=== PATIENT | female | born 1955 | race Caucasian/White ===

== ENCOUNTER 2025-01-02 11:11 | Outpatient (CLI) | payer MEDICARE, SELFPAY ==
--- OUTSIDE RECORDS SUMMARY | 2025-01-02 11:15 | XMS_ITS | Encounter Summary ---
Author Organization [facility] Address [address] [place] [address] Phone Care Team Providers Care Manager Of Construction Name Role Phone Amauri Raza MD Unavailable [phone] Trip Higginbotham MD Unavailable [phone] Ofelia Bundy PAC Unavailable Sabas Gold MD Unavailable [phone] Andre Celis MD Unavailable Emilia Horner MD Primary Care Provider Gabriela Krishnamurthy MD Unavailable [phone] Marcial Ceja MD Unavailable Reason for Visit * Reason Comments Medication Refill Encounter Details Date Type Department Care Team (Late st Contact Info) Description 10/06/2021 Refill [facility] - Family Medicine - Normal [address] [facility] [address] [place] [address] Emilia Horner MD [address] [facility] [address] [place] [address] Medication Refill Social History Tobacco Use Types Packs/Day Years Used Date Smoking Tobacco: Never Smokeless Tobacco: Never Alcohol Use Standard Drinks/Week Comments Yes 0 (1 standard drink = 0.6 oz pur e alcohol) Occasional, 1 glass per month PHQ-2 Answer Date Recorded Total Score - Questions 1-9 1 03/16 Sexually Active Control Partners Comments Not Currently Male Comments No Sex and Gender Information Value Date Recorded Sex Assigned at Not on file Legal Sex Female 3:00 AM THREAD INSPECTOR Gender Identity Not on file Sexual Orientation Not on file COVID-19 Exposure Response Date Recorded In the last month, have you been in contact with someone who was confirmed or suspected to have Coronavirus / COVID-19? No / Unsure 09/20/2021 9:33 AM THREAD INSPECTOR documented as of this encounter Miscellaneous Notes * Telephone Encounter - Latesha Suresh APRN, CNP - 10/08/2021 10:40 AM CST (I am covering for Dr. Díaz who is away from the office today.) Medication refilled. AD INSPECTOR * Telephone Encounter - Yamila Elliott RN - 10/08/2021 10:06 AM THREAD INSPECTOR Medication failed the protocol, cannot be delegated, provider to review and approve the medication order if appropriate. STEF: 09/20/2021 (Preop); 04/13/2021 (Med Management) - Irritable bowel syndrome with diarrhea - amitriptyline (ELAVIL) 50 MG Tablet; Take 1 Tablet by mouth nightly. NOV: 10/13/2021 - Annual Last Filled: Amitriptyline 50 mg - 04/13/2021 - #90/1 Requested Prescriptions Pending Prescriptions Disp Refills amitriptyline (ELAVIL) 50 MG Tablet [Pharmacy Med Name: AMITRIPTYLINE 50MG TABLETS] 90 Tablet 1 Sig: TAKE 1 TABLET BY MOUTH EVERY NIGHT Not Delegated - Tricyclic Agents Protocol Failed - 10/06/2021 10:18 AM Failed - This refill cannot be delegated Passed - Visit with relevant provider in past 12 months or upcoming 90 days Recent Visits Date Type Provider Dept 09/20/21 Office Visit Fred Johnson APRN, SUPERVISOR CONCRETE STONE FINISHING [facility] [place] 04/13/21 Office Visit Emilia D[facility] [place] [facility] [place] 10/30/20 Office Visit Emilia Díaz [facility] [place] Showing recent visits within past 365 days and meeting all other requirements Future Appointments Date Type Provider Dept 10/13/21 Appointment Emilia Díaz MD [facility] [place] Showing future appointments within next 90 days and meeting all other requirements AD INSPECTOR documented in this encounter Plan of Treatment Not on file documented as of this encounter Visit Diagnoses Diagnosis Fibromyalgia Mylagia and myositis, unspecified Irritable bowel syndrome with diarrhea Irritable bowel syndrome documented in this encounter Additional Health Concerns Infection Onset Date Last Indicated Resolved Time COVID - 19 01/07/2022 01/07/2022 01/27/2022 12:1 6 AM CDT COVID - 19 Confirmed 02/28/2022 02/28/2022 022 12:16 AM CDT COVID - 19 03/27/2024 03/27/2024 03/27/2024 12:4 2 PM CDT Assessment Noted Time PHQ-9 Depression Total Score: 1 04/13/20 10:00 AM CDT documented as of this encounter Care Teams Manager Of Construction Relationship Specialty Start Date End Date Emilia Horner MD [address] [place] [address] PCP - General Family Medicine 01/02/19 Amauri Raza MD Consulting Physician Rheumatology 08/05/14 Trip Higginbotham MD [address] [place] [address] Consulting Physician Allergy & Immunology 10/06/14 Ofelia Bundy PAC [address] [place] [address] Physician Body Wirer Physician Body Wirer 10/06/14 Sabas Gold MD [address] [facility] [address] Consulting Physician Gastroenterology 04/01/15 Andre Celis MD [address] [place] [address] Consulting Physician Urology 05/21/18 Gabriela Krishnamurthy MD [address] [facility] [place], [place] [address] Powerhouse Mechanic Apprentice Interventional Cardiology 10/14/24 Marcial Ceja MD [address] [facility] [place], [place] [address] Consulting Physician Cardiovascular Disease - Cardiology 10/14/24 documented as of this encounter
--- OUTSIDE RECORDS SUMMARY | 2025-01-02 11:15 | XMS_ITS ---
Author Organization [facility] Address [address] [place], [place] [address] Care Team Providers Care Time Study Statistician Name Role Phone Bre Chris Emilia Horner Primary Care Provider Unavailable Andre Celis [phone] REASON FOR VISIT RX REFILL Medications Medication SIG (Take, Route, Fr equency, Duration) Notes Start Date End Date Status Myrbetriq 50 MG 1 tablet Orally Once a day for 90 days Active Encounters Encounter Location Date Provider Diagnosis [facility] [address] [place] [place] [place], [place] [address] 10/21/2024 Andre Celis Urgency of urination R39.15 Assessments Encounter Date Diagnosis (ICD Code) Assessment Notes Treatment Notes Treatment Clinical Notes Section Notes 10/21/2024 Urgency of urination (ICD-10 - R39.15) Plan Of Treatment Medication Medication Name Sig Start Date Stop Date Notes Myrbetriq 50 MG 1 tablet Orally Once a day for 90 days Progress Notes * Rebekah MERCADO AprilDOB:[birth year] (69 yo F)Acc No.[id number]:10/21/2024 Patient: Rebekah WOO :1955 A ge:69 Y S ex:Female Address:[address] [facility], [place], [address] * Refills Refill Myrbetriq Tablet Extended Release 24 Hour, 50 MG, Orally, 90, 1 tablet, Once a day, 90 days, Refills=0 * true * Date: Generated for Kailyn em/Miguelangel/Rivka on: 0 01/02/2025 11:15 AM CDT
--- OUTSIDE RECORDS SUMMARY | 2025-01-02 11:15 | XMS_ITS | Encounter Summary ---
Author Organization [facility] Address [address] [place] [address] Phone Care Team Providers Care Director Packaging Name Role Phone Amauri Raza MD Unavailable [phone] Trip Higginbotham MD Unavailable [phone] Ofelia Bundy PAC Unavailable Sabas Gold MD Unavailable [phone] Andre Celis MD Unavailable Emilia Horner MD Primary Care Provider Gabriela Krishnamurthy MD Unavailable Marcial Ceja MD Unavailable Reason for Visit * Reason Comments Medication Refill Encounter Details Date Type Department Care Team (Late st Contact Info) Description 08/06/2020 Refill [facility] - Family Medicine - [place] [address] [facility] [address] [place] [address] Latesha Suresh APRN, SALES AND MARKETING ADMINISTRATOR [address] [facility] [address] [place] [address] Medication Refill Social History Tobacco Use Types Packs/Day Years Used Date Smoking Tobacco: Never Smokeless Tobacco: Never Alcohol Use Standard Drinks/Week Comments Yes 0 (1 standard drink = 0.6 oz pur e alcohol) Occasional, 1 glass per month PHQ-2 Answer Date Recorded Total Score - Questions 1-9 1 11/2019 Sexually Active Control Partners Comments Never Comments No Sex and Gender Information Value Date Recorded Sex Assigned at Not on file Legal Sex Female 3:00 AM WEIGHTER Gender Identity Not on file Sexual Orientation Not on file COVID-19 Exposure Response Date Recorded In the last month, have you been in contact with someone who was confirmed or suspected to have Coronavirus / COVID-19? No / Unsure 07/17/2020 8:11 AM WEIGHTER documented as of this encounter Miscellaneous Notes * Telephone Encounter - Latesha Suresh APN, CNP - 08/11/2020 11:04 AM CST Medication refilled. HTER * Telephone Encounter - Yamila Hooper - 08/10/2020 3:29 PM CST Per nursing clinical judgement, provider to review and approve the medication(s) order(s) if appropriate. Routing due to pop up with diclofenac sodium Requested Prescriptions Pending Prescriptions Disp Refills celecoxib (CeleBREX) 200 MG Capsule [Pharmacy Med Name: CELECOXIB 200MG CAPSULES] 90 Cap 0 Sig: TAKE 1 CAPSULE BY MOUTH DAILY Analgesics: COX2 Inhibitors Passed - 08/06/2020 12:59 PM Passed - Valid encounter within last 6 months Past Office Visits Recent Outpatient Visits 3 weeks ago Encounter for general adult medical examination without abnormal findings [facility] - [facility] Medicine - Emilia Kay MD 5 months ago Injury of right middle finger, subsequent encounter [facility] Family Medicine - Normal Latesha Suresh APN, CNP 7 months ago Preop examination [facility] Family [facility] - Emilia Kay MD 7 months ago Paronychia of finger, right [facility] Family Medicine - Noemi Brady APN, SALES AND MARKETING ADMINISTRATOR 10 months ago Other iron deficiency anemia [facility] Family Medicine - Emilia Kay MD Upcoming Appointments EXCAVATOR OPERATOR - Recent and Past Visits Recent Visits Date Type Provider Dept 07/17/20 Office Visit Emilia Díaz MD [facility] [place] 02/13/20 Office Visit Latesha Suresh APN, SALES AND MARKETING ADMINISTRATOR [facility] [place] 01/13/20 Office Visit Emilia Díaz MD [facility] [place] 12/27/19 Office Visit Noemi Forbes APN, SALES AND MARKETING ADMINISTRATOR [facility] [place] 09/20/19 Office Visit Emilia Díaz MD [facility] [place] 08/28/19 Office Visit Leigh Ann Gaona APN, SALES AND MARKETING ADMINISTRATOR [facility] [place] 05/24/19 Office Visit Emilia Díaz MD [facility] [place] Showing recent visits within past 460 days with a meds authorizing provider and meeting all other requirements Future Appointments No visits were found meeting these conditions. Showing future appointments within next 90 days with a meds authorizing provider and meeting all other requirements HTER documented in this encounter Plan of Treatment Not on file documented as of this encounter Visit Diagnoses Not on filedocumented in this encounter Additional Health Concerns Infection Onset Date Last Indicated Resolved Time COVID - 19 08/18/2020 08/18/2020 09/07/2020 12:1 8 AM WEIGHTER COVID - 19 Comment:COVID swab is negative, removed COVID flag per ED MD order 10/02/2020 10/02/2020 10/02/2020 5:[address] COVID - 19 01/07/2022 01/07/2022 01/27/2022 12:1 6 AM CDT COVID - 19 Confirmed 02/28/2022 02/28/2022 022 12:16 AM CDT COVID - 19 03/27/2024 03/27/2024 03/27/2024 12:4 2 PM CDT Assessment Noted Time PHQ-9 Depression Total Score: 1 07/17/20 20 9:00 AM WEIGHTER documented as of this encounter Care Teams Director Packaging Relationship Specialty Start Date End Date Emilia Horner MD [address] [address] PCP - General Family Medicine 01/02/19 Amauri Raza MD Consulting Physician Rheumatology 08/05/14 Trip Higginbotham MD [address] [place] [address] Consulting Physician Allergy & Immunology 10/06/14 Ofelia Bundy PAC [address] [place] [address] Physician Senior Db2 Systems Programmer Physician Senior Db2 Systems Programmer 10/06/14 Sabas Gold MD [address] [place] [address] Consulting Physician Gastroenterology 04/01/15 Andre eClis MD [address] [place] [address] Consulting Physician Urology 05/21/18 Gabriela Krishnamurthy MD [address] [place] [address] Laminator Preforms Interventional Cardiology 10/14/24 Marcial Ceja MD [address] [place] [address] Consulting Physician Cardiovascular Disease - Cardiology 10/14/24 documented as of this encounter
--- OUTSIDE RECORDS SUMMARY | 2025-01-02 11:15 | XMS_ITS | Encounter Summary ---
Author Organization [facility] Address [address] [place] [address] Phone Care Team Providers Care End User Consultant Name Role Phone Amauri Raza MD Unavailable Trip Higginbotham MD Unavailable [phone] Ofelia Bundy PAC Unavailable Sabas Gold MD Unavailable [phone] Andre Celis MD Unavailable Emilia Horner MD Primary Care Provider Gabriela Krishnamurthy MD Unavailable Marcial Ceja MD Unavailable Reason for Visit * Reason Comments Medication Refill Encounter Details Date Type Department Care Team (Late st Contact Info) Description 10/05/2021 Refill [facility] - Gastroenterology - [place] [address] [place] [address] Sabas Gold MD [address] [place] [address] Medication Refill Social History Tobacco Use Types [...] on file Legal Sex Female 3:00 AM BIOFUELS PRODUCT DEVELOPMENT MANAGER Gender Identity Not on file Sexual Orientation Not on file COVID-19 Exposure Response Date Recorded In the last month, have you been in contact with someone who was confirmed or suspected to have Coronavirus / COVID-19? No / Unsure 09/20/2021 9:33 AM BIOFUELS PRODUCT DEVELOPMENT MANAGER documented as of this encounter Plan of Treatment Not on [...] Time PHQ-9 Depression Total Score: 1 04/13/20 21 10:00 AM CDT documented as of this encounter Care Teams End User Consultant Relationship Specialty Start Date End Date Emilia Horner MD [address] [place] [address] PCP - General Family Medicine 01/02/19 Amauri Raza MD Consulting Physician Rheumatology 08/05/14 Trip Higginbotham MD [address] [place] [address] Consulting Physician Allergy & Immunology 10/06/14 Ofelia Budny PAC [address] [place] [address] Physician Vegetable Grader Physician Vegetable Grader 10/06/14 Sabas Gold MD [address] [place] [address] Consulting Physician Gastroenterology 04/01/15 Andre Celis MD [address] [place] [address] Consulting Physician Urology 05/21/18 Gabriela Krishnamurthy MD [address] [facility] [address] [place], [place] [address] Director Post Interventional Cardiology 10/14/24 Marcial Ceja MD [address] [facility] [address] [place], [place] [address] Consulting Physician Cardiovascular Disease - Cardiology 10/14/24 documented as of this encounter
--- OUTSIDE RECORDS SUMMARY | 2025-01-02 11:15 | XMS_ITS | Encounter Summary ---
Author Organization [facility] Address [address] [place] [address] Phone Care Team Providers Care Microbiology Coordinator Name Role Phone Amauri Raza MD Unavailable [phone] Tirp Higginbotham MD Unavailable [phone] Ofelia Bundy PAC Unavailable [phone] Sabas Gold MD Unavailable Andre Celis MD Unavailable Emilia Horner MD Primary Care Provider Gabriela Krishnamurthy MD Unavailable Marcial Ceja MD Unavailable Reason for Visit * Reason Comments Medication Refill Encounter Details Date Type Department Care Team (Late st Contact Info) Description 10/02/2021 Refill [facility] - Gastroenterology - [place] [address] [place] [phone] Tigre Urrutia PAC [address] [place] [address] Medication Refill Social History Tobacco Use Types [...] on file Legal Sex Female 3:00 AM BOGGER OPERATOR Gender Identity Not on file Sexual Orientation Not on file COVID-19 Exposure Response Date Recorded In the last month, have you been in contact with someone who was confirmed or suspected to have Coronavirus / COVID-19? No / Unsure 09/20/2021 9:33 AM BOGGER OPERATOR documented as of this encounter Miscellaneous Notes * Telephone Encounter - Miguelina Cornejo LPN - 10/04/2021 8:42 AM CST Wrong provider ER OPERATOR documented in this encounter Plan of Treatment [...] documented as of this encounter Care Teams Microbiology Coordinator Relationship Specialty Start Date End Date Emilia Horner MD [address] [address] PCP - General Family Medicine 01/02/19 Amauri Raza MD Consulting Physician Rheumatology 08/05/14 Trip Higginbotham MD [address] [place] [address] Consulting Physician Allergy & Immunology 10/06/14 Ofelia Bundy PAC [address] [place] [address] Physician Alumni Coordinator Physician Alumni Coordinator 10/06/14 Sabas Gold MD [address] [place] [address] Consulting Physician Gastroenterology 04/01/15 Andre Celis MD [address] [facility] [place] [address] Consulting Physician Urology 05/21/18 Gabriela Krishnamurthy MD [address] [facility] [address] [facility] [place] [address] Inside Sales Territory Manager Interventional Cardiology 10/14/24 Marcial Ceja MD [address] [facility] [place] [address] Consulting Physician Cardiovascular Disease - Cardiology 10/14/24 documented as of this encounter
--- OUTSIDE RECORDS SUMMARY | 2025-01-02 11:16 | XMS_ITS | Patient Health Record ---
Author Organization [facility] Address [address] [place], [place] [address] Care Team Providers Care Occupational Health Rn Name Role Phone Emilia Hernandez Primary Care Provider Unavailable Andre Celis Unavailable [phone] Tianna Mckeon Unavailable Allergies Allergen (clinical drug ingredient) Drug/Non Drug Allergy documented on EMR Reaction Allergy Type Onset Date Status tetracycline Tetracycline HCl hives Drug Allergy Active Reason For Referral No Information Medications Medication SIG (Take, Route, Frequency, Duration) Notes Start Date End Date Status Flonase Allergy Relief 50 MCG/ACT 1 spray in each nostril Nasally Once a day Active Albuterol 90 MCG/ACT Inhalation Active Cholecalciferol 2000 UNIT Orally Active B Complex Vitamins Orally A ctive [place] 3-6-9 Complex Orally Active NexIUM 40 MG 1 capsule Orally Once a day Active Estrace 0.1 MG/GM 1 gram Vaginal QHS for the first 2 weeks, then 3 x weekly for 30 days Active B-12 1000 MCG 1 tablet under the tongue and allow to dissolve Sublingual Once a day Active Symbicort 80-4.5 MCG/ACT 2 puffs Inhalat ion Twice a day Active Myrbetriq 50 mg 1 tablet Orally Once a day for 30 Active Probiotic Orally Active Myrbetriq 50 MG TAKE 1 TABLET BY MOUTH EVERY DAY Orally Once a day for 90 days Patient needs to be seen before further refills Active Amitriptyline HCl 25 MG 1 tablet at bedt maxine Orally Once a day Active Myrbetriq 50 MG 1 tablet Orally Once a day for 90 days Active Vitamin E 100 UNIT 1 capsule Orally Once a day Active Social History Tobacco Use: Social History Observation Description Date Details (start date - stop date) Never Smoker NA - NA TOBACCO USE - Question Answer Notes Are you a: never Tobacco user Alcohol Screen Question Answer Notes Did you have a drink containing alcohol in the p ast year? No Points 0 Interpretation Negative Problems Problem Type SNOMED Code ICD Code Onset Dates Problem Status W/U Status Risk Notes Problem Frequency of micturition (097373202) Frequency of micturition (R35.0) Active confirmed Problem Urge incontinence of urine (07286895) Urge incontinence (N39.41) Active confirmed Problem Postmenopausal atrophic vaginitis (49808694) Postmenopausal atrophic vaginitis (N95.2) Active confirmed Problem Nocturia (952805925) Nocturia (R35.1) Active confirmed Problem Urgent desire to urinate (65726934) Urgency of urination (R39.15) Active confirmed Problem Female stress incontinence (57093853) Female stress incontinence (625.6) Inactive confirmed Problem Urge incontinence of urine (55367486) Urge incontinence (788.31) Inactive confirmed Problem Urinary frequency (031311082) Urinary frequency (788.41) Inactive confirmed Problem Nocturia (981108736) Nocturia (788.43) Inactive confirmed Problem Urgent desire to urinate (32049655) Urgency of urination (788.63) Inactive confirmed Encounters Encounter Location Date Provider Diagnosis [facility] [address] [place] [place], [place] [address] 10/21/2024 Andre Leak Urgency of urination R39.15 Assessments Encounter Date Diagnosis (ICD Code) Assessment Notes Treatment Notes Treatment Clinical Notes Section Notes 10/21/2024 Urgency of urination (ICD-10 - R39.15) Plan Of Treatment Pending Test Test Name Order Date Urinalysis with micro 10/24/2022 UTI Panel 10/24/2022 Insurance Providers Payer Name Payer Address Payer Phone Subscriber Number Group Number Insured Name Patient Relationship to Insured Coverage Start Date Coverage End Date [employer] [address] [place] [address] [id number] Rebekah Mercado Self - patient is the insured Medical (General) History Medical History History ICD Code hysterectomy tonsillectomy Arthritis asthma Esophageal reflux fibromyalgia Hiatal hernia hyperlipidemia meniscal tear low hemoglobin Surgical History Surgery Date(Month/Year) foot surgery tonsillectomy knee surgery carpal tunnel release inguinal hernia repair hysterectomy, abdominal knee arthroscopy iron infusion R knee replacement 2023
--- OUTSIDE RECORDS SUMMARY | 2025-01-02 11:16 | XMS_ITS | Encounter Summary ---
Author Organization [facility] Address [address] [place] [address] Phone Care Team Providers Care Brazing Machine Operator Automatic Name Role Phone Amauri Raza MD Unavailable Trip Higginbotham MD Unavailable [phone] Ofelia Bundy PAC Unavailable Sabas Gold MD Unavailable [phone] Andre Celis MD Unavailable Emilia Horner MD Primary Care Provider Gabriela Krishnamurthy MD Unavailable Marcial Ceja MD Unavailable Reason for Visit * Reason Comments Medication Refill Encounter Details Date Type Department Care Team (Late st Contact Info) Description 05/07/2020 Refill [facility] - Family Medicine - Normal [address] [facility] [address] [place], [place] [address] Emilia Horner MD [address] [facility] [address] [place] [address] Medication Refill Social History Tobacco Use Types Packs/Day Years Used Date Smoking Tobacco: Never Smokeless Tobacco: Never Alcohol Use Standard Drinks/Week Comments Yes 0 (1 standard drink = 0.6 oz pur e alcohol) Occasional, 1 glass per month PHQ-2 Answer Date Recorded PHQ-2 Score 0 04/18/2019 Sexually Active Control Partners Comments Never Comments No Sex and Gender Information Value Date Recorded Sex Assigned at Not on file Legal Sex Female 3:00 AM OBSTETRIC ASSISTANT Gender Identity Not on file Sexual Orientation Not on file COVID-19 Exposure Response Date Recorded In the last month, have you been in contact with someone who was confirmed or suspected to have Coronavirus / COVID-19? No / Unsure 05/05/2020 10:53 AM CDT documented as of this encounter Miscellaneous Notes * Telephone Encounter - Latesha Suresh APN, CNP - 05/08/2020 6:33 PM CDT Medication refilled. * Telephone Encounter - Jenny Mckeon RN - 05/08/2020 12:01 PM CDT Medication failed the protocol, provider to review and approve the medication order. Requested Prescriptions Pending Prescriptions Disp Refills celecoxib (CeleBREX) 200 MG Capsule [Pharmacy Med Name: CELECOXIB 200MG CAPSULES] 90 Cap Sig: TAKE 1 CAPSULE BY MOUTH DAILY Analgesics: COX2 Inhibitors Passed - 05/07/2020 12:39 PM Passed - Valid encounter within last 6 months Past Office Visits Recent Outpatient Visits 2 months ago Injury of right middle finger, subsequent encounter [facility] - Normal Latesha Suresh APN, SAMANTHA 3 months ago Preop examination [facility] - Normal Emilia Díaz MD 4 months ago Paronychia of finger, right [facility] - Normal Noemi Forbes APN, HABILITATION ASSISTANT 7 months ago Other iron deficiency anemia [facility] - Normal Emilia Díaz MD 8 months ago Paronychia of finger, right [facility] - Normal Leigh Ann Gaona APN, HABILITATION ASSISTANT Upcoming Appointments FILTER CLOTH MAKER - Recent and Past Visits Recent Visits Date Type Provider Dept 02/13/20 Office Visit Latesha Suresh APN, HABILITATION ASSISTANT [facility] [place] 01/13/20 Office Visit Emilia Díaz MD [facility] [place] 12/27/19 Office Visit Noemi Forbes APN, HABILITATION ASSISTANT [facility] [place] 09/20/19 Office Visit Emilia Díaz MD [facility] [place] 08/28/19 Office Visit Jimenez Leigh Ann MACKENZIE Travis, HABILITATION ASSISTANT [facility] [place] 05/24/19 Office Visit Emilia Díaz MD [facility] [place] Showing recent visits within past 460 days with a meds authorizing provider and meeting all other requirements Future Appointments No visits were found meeting these conditions. Showing future appointments within next 90 days with a meds authorizing provider and meeting all other requirements documented in this encounter Plan of Treatment Not on file documented as of this encounter Visit Diagnoses Not on filedocumented in this encounter Additional Health Concerns Infection Onset Date Last Indicated Resolved Time COVID - 19 08/18/2020 08/18/2020 09/07/2020 12:1 8 AM OBSTETRIC ASSISTANT COVID - 19 Comment:COVID swab is negative, removed COVID flag per ED MD order 10/02/2020 10/02/2020 10/02/2020 5:[address] COVID - 19 01/07/2022 01/07/2022 01/27/2022 12:1 6 AM CDT COVID - 19 Confirmed 02/28/2022 02/28/2022 022 12:16 AM CDT COVID - 19 03/27/2024 03/27/2024 03/27/2024 12:4 2 PM CDT Assessment Noted Time PHQ-9 Depression Total Score: 0 05/24/20 1:00 PM CDT documented as of this encounter Care Teams Brazing Machine Operator Automatic Relationship Specialty Start Date End Date Emilia Horner MD [address] [address] [place] [address] PCP - General Family Medicine 01/02/19 Amauri Raza MD Consulting Physician Rheumatology 08/05/14 Trip Higginbotham MD [address] [place] [address] Consulting Physician Allergy & Immunology 10/06/14 Ofelia Bundy PAC [address] [place] [address] Physician Contact Lens Cutter Physician Contact Lens Cutter 10/06/14 Sabas Gold MD [address] [place] [phone] Consulting Physician Gastroenterology 04/01/15 Andre Celis MD [address] [place] [address] Consulting Physician Urology 05/21/18 Gabriela Krishnamurthy MD [address] [facility] [place], [place] [address] Customs Collector Interventional Cardiology 10/14/24 Marcial Ceja MD [address] [facility] [place], [place] [address] Consulting Physician Cardiovascular Disease - Cardiology 10/14/24 documented as of this encounter
--- OUTSIDE RECORDS SUMMARY | 2025-01-02 11:16 | XMS_ITS | Encounter Summary ---
Author Organization [facility] Address [address] [place] [address] Phone Care Team Providers Care Maitre D' Name Role Phone Amauri Raza MD Unavailable Trip Higginbotham MD Unavailable [phone] Ofelia Bundy PAC Unavailable [phone] Sabas Gold MD Unavailable [phone] Andre Celis MD Unavailable Emilia Horner MD Primary Care Provider [phone] Gabriela Krishnamurthy MD Unavailable Marcial Ceja MD Unavailable Reason for Visit * Reason Comments Medication Refill Encounter Details Date Type Department Care Team (Late st Contact Info) Description 01/20/2024 Refill [facility] - Family Medicine - Normal [address] [facility] [address] [place] [address] Emilia Horner MD [address] [facility] [address] [place] [address] Medication Refill Social History Tobacco Use Types Packs/Day Years Used Date Smoking Tobacco: Never Smokeless Tobacco: Never Alcohol Use Standard Drinks/Week Comments Yes 0 (1 standard drink = 0.6 oz pur e alcohol) Occasional, 1 glass per month [facility] Utilities Answer Date Recorded In the past 12 months has e electric, gas, oil, or water company threatened to shut off services in your home? No 10/08/2023 Social Connection and Isolat ion Panel [NHANES] Answer Date Recorded In a typical week, how many times do you talk on the phone with family, friends, or neighbors? More than three times a week 10/08/2023 How often do you get togethe r with friends or relatives? Once a week 10/08/2023 How often do you attend chur ch or sabianism services? More than 4 times per year 10/08/2023 Do you belong to any clubs o r organizations such as jain groups, unions, fraternal or athletic groups, or school groups? Yes 10/08/2023 How often do you attend meet ings of the clubs or organizations you belong to? More than 4 times per year 10/08/2023 Are you , , di vorced, , never , or living with a partner? 10/08/2023 AUDIT-C Answer Date Recorded Q1: How often do you have a drink containing alc ohol? Monthly or less 10/08/2023 Q2: How many drinks containi ng alcohol do you have on a typical day when you are drinking? 1 or 2 10/08/2023 Q3: How often do you have si x or more drinks on one occasion? Never 10/08/2023 Overall Financial Resource Strain (CARDIA) Answe r Date Recorded How hard is it for you to pa y for the very basics like food, housing, medical care, and heating? Not very hard 10/08/2023 PHQ-2 Answer Date Recorded Total Score - Questions 1-9 5 01/12 [facility] - Occupational Stress Questionnaire Answer Date Recorded Do you feel stress - tense, restless, nervous, or anxious, or unable to sleep at night because your mind is troubled all the time - these days? To some extent 10/08/2023 Exercise Vital Sign Answer Date Recorde d On average, how many days pe r week do you engage in moderate to strenuous exercise (like a brisk walk)? 0 days 10/08/2023 On average, how many minutes do you engage in exercise at this level? 0 min 10/08/2023 Hunger Vital Sign Answer Date Recorded Within the past 12 months, y ou worried that your food would run out before you got the money to buy more. Never true 10/08/19 24 Within the past 12 months, t he food you bought just didn't last and you didn't have money to get more. Never true 10/08/2023 PRAPARE - Transportation Answer Date Re corded In the past 12 months, has l ack of transportation kept you from medical appointments or from getting medications? No 09/15 In the past 12 months, has l ack of transportation kept you from meetings, work, or from getting things needed for daily living? No 10/08/2023 Housing Stability Vital Sign Answer Marky e Recorded In the last 12 months, was t here a time when you were not able to pay the mortgage or rent on time? No 10/08/2023 In the last 12 months, how many places have you lived? 1 10/08/2023 In the last 12 months, was t here a time when you did not have a steady place to sleep or slept in a jail (including now)? No 10/08/2023 Education Answer Date Recorded What is the highest level of school you have completed or the highest degree you have received? Master's degree (e.g., MA, MS, Carolyn, MEd, BACK HOE OPERATOR, MALA) 01/25/2023 Sexually Active Control Partners Comments Not Currently Male Comments No Sex and Gender Information Value Date Recorded Sex Assigned at Not on file Legal Sex Female 3:00 AM PRIZE FIGHTER Gender Identity Not on file Sexual Orientation Not on file documented as of this encounter Miscellaneous Notes * Telephone Encounter - Zora Patel RN - 01/22/2024 8:52 AM CDT Fenofibrate refilled and signed per [facility] chronic medication standing order for Pediatric and Adult Patients. Gabapentin failed the protocol. Order pended All Patient Appointments Provider Department Dept Phone 02/08/2024 1:00 PM Emilia Horner [facility] - Family Medicine - Normal [phone] Requested Prescriptions Pending Prescriptions Disp Refills fenofibrate 160 MG Tablet [Pharmacy Med Name: FENOFIBRATE 160MG TABLETS] 90 Tablet 0 Sig: TAKE 1 TABLET BY MOUTH DAILY Fibrates Protocol Passed - 01/20/2024 7:51 AM Passed - Visit with relevant provider in past 12 months or upcoming 90 days Recent Visits Date Type Provider Dept 10/10/23 Office Visit Emilia Horner MD [facility] [place] 08/28/23 Office Visit Noemi Forbes APRN, HYDROSTATIC TUBING TESTER [facility] [place] 01/25/23 Office Visit Emilia Horner MD [facility] [place] Showing recent visits within past 365 days and meeting all other requirements Future Appointments Date Type Provider Dept 02/08/24 Appointment Emilia Horner MD [facility] [place] Showing future appointments within next 90 days and meeting all other requirements Passed - Lipid panel in past 12 months LDL Date Value Ref Range Status 02/07/2023 54 <130 mg/dL Final HDL CHOLESTEROL Date Value Ref Range Status 02/07/2023 46 >40 mg/dL Final CHOLESTEROL Date Value Ref Range Status 02/07/2023 157 <200 mg/dL Final TRIGLYCERIDES Date Value Ref Range Status 02/07/2023 283 (H) <150 mg/dL Final VLDL Date Value Ref Range Status 02/07/2023 57 (H) 10 - 50 mg/dL Final CHOL/HDL RATIO Date Value Ref Range Status 02/07/2023 3.4 0.0 - 4.4 Final NON-HDL CHOLESTEROL Date Value Ref Range Status 02/07/2023 111 <130 mg/dL Final gabapentin (NEURONTIN) 300 MG Capsule [Pharmacy Med Name: GABAPENTIN 300MG CAPSULES] 180 Capsule 0 Sig: TAKE 1 CAPSULE BY MOUTH TWICE DAILY Not Delegated - Anticonvulsants Excluding Benzodiazepines Protocol Failed - 01/20/2024 7:51 AM Failed - This refill cannot be delegated Passed - Visit with relevant provider in past 12 months or upcoming 90 days Recent Visits Date Type Provider Dept 10/10/23 Office Visit Emilia Horner MD [facility] [place] 08/28/23 Office Visit Noemi Forbes APRN, HYDROSTATIC TUBING TESTER [facility] [place] 01/25/23 Office Visit Emilia Horner MD [facility] [place] Showing recent visits within past 365 days and meeting all other requirements Future Appointments Date Type Provider Dept 02/08/24 Appointment Emilia Horner MD [facility] [place] Showing future appointments within next 90 days and meeting all other requirements documented in this encounter Plan of Treatment Not on file documented as of this encounter Visit Diagnoses Diagnosis Mixed hyperlipidemia Fibromyalgia Mylagia and myositis, unspecified documented in this encounter Additional Health Concerns Infection Onset Date Last Indicated Resolved Time COVID - 19 03/27/2024 03/27/2024 03/27/2024 12:4 2 PM CDT Assessment Noted Time PHQ-9 Depression Total Score: 5 01/26/20 10:00 AM CDT documented as of this encounter Care Teams Maitre D' Relationship Specialty Start Date End Date Emilia Horner MD [address] [address] PCP - General Family Medicine 01/02/19 Amauri Raza MD Consulting Physician Rheumatology 08/05/14 Trip Higginbotham MD [address] [place] [address] Consulting Physician Allergy & Immunology 10/06/14 Ofelia Bundy PAC [address] [facility] [place] [place] [address] Physician Windows Desktop Engineer Physician Windows Desktop Engineer 10/06/14 Sabas Gold MD [address] [place] [address] Consulting Physician Gastroenterology 04/01/15 Andre Celis MD [address] [place] [address] Consulting Physician Urology 05/21/18 Gabriela Krishnamurthy MD [address] [facility] [place] [address] Nut Sheller Machine Operator Interventional Cardiology 10/14/24 Marcial Ceja MD [address] [facility] [place], [place] [id number] Consulting Physician Cardiovascular Disease - Cardiology 10/14/24 documented as of this encounter
--- OUTSIDE RECORDS SUMMARY | 2025-01-02 11:16 | XMS_ITS | Encounter Summary ---
Author Organization [facility] Address [address] [place] [address] Phone Care Team Providers Care Supervisor Composing Room Name Role Phone Amauri Raza MD Unavailable Trip Higginbotham MD Unavailable [phone] Ofelia Bundy PAC Unavailable Sabas Gold MD Unavailable [phone] Andre Celis MD Unavailable Emilia Horner MD Primary Care Provider Gabriela Krishnamurthy MD Unavailable Marcial Ceja MD Unavailable Reason for Visit * Reason Comments Medication Refill Encounter Details Date Type Department Care Team (Late st Contact Info) Description 01/08/2021 Refill [facility] - Family Medicine - Normal [address] [facility] [place] [address] [place] [address] Emilia Horner MD [address] [facility] [address] [address] [place] [address] Medication Refill Social History Tobacco Use Types Packs/Day Years Used Date Smoking Tobacco: Never Smokeless Tobacco: Never Alcohol Use Standard Drinks/Week Comments Yes 0 (1 standard drink = 0.6 oz pur e alcohol) Occasional, 1 glass per month PHQ-2 Answer Date Recorded Total Score - Questions 1-9 1 11/2019 Sexually Active Control Partners Comments Not Currently Male Comments No Sex and Gender Information Value Date Recorded Sex Assigned at Not on file Legal Sex Female 3:00 AM MAJOR ACCOUNT REPRESENTATIVE Gender Identity Not on file Sexual Orientation Not on file documented as of this encounter Miscellaneous Notes * Telephone Encounter - Emilia Díaz MD - 01/13/2021 11:13 AM CDT approved * Telephone Encounter - Filemon José - 01/13/2021 9:18 AM CDT Medication failed the protocol, provider to review and approve the medication order if appropriate. STEF - 10/30/20 Requested Prescriptions Pending Prescriptions Disp Refills amitriptyline (ELAVIL) 50 MG Tablet [Pharmacy Med Name: AMITRIPTYLINE 50MG TABLETS] 90 Tablet 0 Sig: TAKE 1 TABLET BY MOUTH EVERY NIGHT [facility] Not Delegated - Psychiatry: Antidepressants - Heterocyclics (TCAs) Failed - 01/13/2021 9:12 AM Failed - This refill cannot be delegated Passed - Valid encounter within last 12 months Past Office Visits Recent Outpatient Visits 2 months ago Inflammatory arthritis [facility] - Family Medicine - Normal Emilia Díaz MD 6 months ago Encounter for general adult medical examination without abnormal findings [facility] - Family Medicine - Normal Emilia Díaz MD 11 months ago Injury of right middle finger, subsequent encounter [facility] - Family Medicine - Normal Latesha Suresh APN, GUEST RELATIONS OFFICER 1 year ago Preop examination [facility] - Emilia Kay MD 1 year ago Paronychia of finger, right [facility] - Normal Noemi Forbes APN, GUEST RELATIONS OFFICER Upcoming Appointments Future Appointments In 2 days Trip Rodriguez, [facility] [place] AIRCRAFT STRUCTURAL REPAIR MECHANIC - Recent and Past Visits Recent Visits Date Type Provider Dept 10/30/20 Office Visit Emilia Díaz MD [facility] [place] 07/17/20 Office Visit Emilia Díaz MD [facility] [place] 02/13/20 Office Visit Latesha Suresh APN, GUEST RELATIONS OFFICER [facility] [place] 01/13/20 Office Visit Emilia Díaz MD [facility] [place] 12/27/19 Office Visit Noemi Forbes APN, GUEST RELATIONS OFFICER [facility] [place] Showing recent visits within past 460 days with a meds authorizing provider and meeting all other requirements Future Appointments No visits were found meeting these conditions. Showing future appointments within next 90 days with a meds authorizing provider and meeting all other requirements Passed - Last BP in normal range BP Readings from Last 1 Encounters: 10/30/20 138/80 documented in this encounter Plan of Treatment Not on file documented as of this encounter Visit Diagnoses Diagnosis Irritable bowel syndrome with diarrhea Irritable bowel syndrome Fibromyalgia Mylagia and myositis, unspecified documented in this encounter Additional Health Concerns Infection Onset Date Last Indicated Resolved Time COVID - 19 01/07/2022 01/07/2022 01/27/2022 12:1 6 AM CDT COVID - 19 Confirmed 02/28/2022 02/28/2022 022 12:16 AM CDT COVID - 19 03/27/2024 03/27/2024 03/27/2024 12:4 2 PM CDT Assessment Noted Time PHQ-9 Depression Total Score: 1 07/17/20 9:00 AM MAJOR ACCOUNT REPRESENTATIVE documented as of this encounter Care Teams Supervisor Composing Room Relationship Specialty Start Date End Date Emilia Horner MD [address] [place] [address] PCP - General Family Medicine 01/02/19 Amauri Raza MD Consulting Physician Rheumatology 08/05/14 Trip Higginbotham MD [address] [place], [place] [address] Consulting Physician Allergy & Immunology 10/06/14 Ofelia Bundy PAC [address] [place] [address] Physician Patient Financial Coordinator Physician Patient Financial Coordinator 10/06/14 Sabas Gold MD [address] [place] [phone] Consulting Physician Gastroenterology 04/01/15 Andre Celis MD [address] [place] [phone] Consulting Physician Urology 05/21/18 Gabriela Krishnamurthy MD [address] [place] [address] Transit Worker Interventional Cardiology 10/14/24 Marcial Ceja MD [address] [facility] [place] [address] Consulting Physician Cardiovascular Disease - Cardiology 10/14/24 documented as of this encounter
--- OUTSIDE RECORDS SUMMARY | 2025-01-02 11:16 | XMS_ITS | Encounter Summary ---
Author Organization [facility] Address [address] [place] [address] Phone Care Team Providers Care Tree Climber Name Role Phone Amauri Raza MD Unavailable Trip Higginbotham MD Unavailable [phone] Ofelia Bundy PAC Unavailable Sabas Gold MD Unavailable [phone] Andre Celis MD Unavailable Emilia Horner MD Primary Care Provider Gabriela Krishnamurthy MD Unavailable Marcial Ceja MD Unavailable Reason for Visit * Reason Comments Medication Refill amitriptyline Encounter Details Date Type Department Care Team (Late st Contact Info) Description 10/10/2020 Refill [facility] - Family Medicine - Normal [address] [facility] [address] [address] [place] [address] Emilia Horner MD [address] [facility] [address] [place] [address] Medication Refill (amitriptyline) Social History Tobacco Use Types Packs/Day Years [...] on file Legal Sex Female 3:00 AM TANNING DRUM OPERATOR Gender Identity Not on file Sexual Orientation Not on file COVID-19 Exposure Response Date Recorded In the last month, have you been in contact with someone who was confirmed or suspected to have Coronavirus / COVID-19? No / Unsure 10/02/2020 2:19 AM TANNING DRUM OPERATOR documented as of this encounter Miscellaneous Notes * Telephone Encounter - Emilia Díaz MD - 10/10/2020 10:50 PM TANNING DRUM OPERATOR approved ING DRUM OPERATOR * Telephone Encounter - Elizabeth Meza - 10/10/2020 5:23 PM CST Requested Prescriptions Pending Prescriptions Disp Refills ??? amitriptyline (ELAVIL) 50 MG Tablet [Pharmacy Med Name: AMITRIPTYLINE 50MG TABLETS] 90 Tablet 0 Sig: TAKE 1 TABLET BY MOUTH EVERY NIGHT Last Refilled - 07/17/2020, #90/0 Last Appt - 07/17/2020 Future Appt - None Labs - n/a ING DRUM OPERATOR documented in this encounter Plan of [...] Total Score: 1 07/17/20 20 9:00 AM TANNING DRUM OPERATOR documented as of this encounter Care Teams Tree Climber Relationship Specialty Start Date End Date Emilia Horner MD [address] [address] PCP - General Family Medicine 01/02/19 Amauri Raza MD Consulting Physician Rheumatology 08/05/14 Trip Higginbotham MD [address] [place], [place] [address] Consulting Physician Allergy & Immunology 10/06/14 Ofelia Bundy PAC [address] [place] [address] Physician Naturalist Physician Naturalist 10/06/14 Sabas Gold MD [address] [place] [address] Consulting Physician Gastroenterology 04/01/15 Andre Celis MD [address] [place] [address] Consulting Physician Urology 05/21/18 Gabriela Krishnamurthy MD [address] [place], [place] [address] Furniture Crater Interventional Cardiology 10/14/24 Marcial Ceja MD [address] [place] [address] Consulting Physician Cardiovascular Disease - Cardiology 10/14/24 documented as of this encounter
--- OUTSIDE RECORDS SUMMARY | 2025-01-02 11:16 | XMS_ITS | Clinical Summary ---
Author Organization [facility] Address [address] [place] [address] Phone Care Team Providers Care Financial Dealers Name Role Phone Amauri Raza MD Unavailable Trip Higginbotham MD Unavailable [phone] Ofelia Bundy PAC Unavailable Sabas Gold MD Unavailable [phone] Andre Celis MD Unavailable Emilia Horner MD Primary Care Provider Gabriela Krishnamurthy MD Unavailable Marcial Ceja MD Unavailable Allergies Active Allergy Reactions Criticality Noted Date Comments Tetracycline Hives 01/26/2010 Medications Cholecalciferol (VITAMIN D3) 1000 UNIT PO TABS Take 2,000 Units by mouth daily. Active Docusate Calcium (STOOL SOFTENER PO) Take 1 Tablet by mouth nightly. Active fluticasone (FLONASE) 50 MCG/ACT Suspension 1-2 Sprays by Nasal route daily. Use in each nostril as directed. Active MYRBETRIQ 50 MG TABLET SR 24 HR Take 1 tab by mouth daily 03/25/20 19 Active Carboxymethylcell ulose Sodium (EYE DROPS OP) Place in affected eye(s). Active Cyanocobalamin (B-12 COMPLIANCE INJECTION IJ) by Injection route. Active Lactobacillus Rhamnosus, GG, (RA Probiotic Digestive Care) Capsule Take 1 Capsule by mouth. Active Diclofenac Sodium (VOLTAREN) 1 % GelIndications:Ne ck pain Apply 2 g 3 times daily as needed (pain Feet, ankles, knees and hands). 300 g 5 12/25/19 22 Active hydroxychloroquin e (PLAQUENIL) 200 MG Tablet Take 200 mg by mouth 2 times daily. Active estradiol (ESTRACE) 0.1 MG/GM Cream by Vaginal route as needed. 01/26/20 23 Active albuterol 108 (90 Base) MCG/ACT Aerosol SolutionIndicatio ns:Mild persistent asthma with exacerbation take 2 Puffs by inhalation every 4 hours as needed for Wheezing or Cough. 6.7 g 08/28/19 24 Active BABY ASPIRIN PO Take 81 mg by mouth in the morning and at bedtime. Active Fexofenadine HCl (MIRIAM PO) Take by mouth daily after breakfast. Active metoprolol tartrate (LOPRESSOR) 25 MG Tablet Take 0.5 Tablets by mouth 2 times daily. 90 Tablet 3 09/20/19 25 Active gabapentin (NEURONTIN) 300 MG CapsuleIndication s:Fibromyalgia Take 1 Capsule by mouth 2 times daily. 180 Capsule 10/28/19 25 Active fenofibrate 160 MG TabletIndications :Mixed hyperlipidemia Take 1 Tablet by mouth daily. 90 Tablet 10/28/19 25 Active esomeprazole (NexIUM) 40 MG CAPSULE DELAYED RELEASE Take 1 Capsule by mouth daily. 90 Capsule 3 10/22/19 25 Active amitriptyline (ELAVIL) 50 MG TabletIndications :Fibromyalgia,Irr itable bowel syndrome with diarrhea Take 1 Tablet by mouth nightly. 90 Tablet 2 10/22/19 25 Active montelukast (SINGULAIR) 10 MG TabletIndications :Allergic rhinitis, unspecified seasonality, unspecified trigger Take 1 Tablet by mouth every evening. 90 Tablet 10/28/19 25 Active budesonide-formot haylie fumarate (SYMBICORT) 80-4.5 MCG/ACT AerosolIndication s:Mild persistent asthma without complication INHALE 2 PUFFS BY MOUTH EVERY 12 HOURS 30.6 g 12/25/19 25 Active celecoxib (CeleBREX) 200 MG CapsuleIndication s:Primary osteoarthritis of left knee TAKE 1 CAPSULE BY MOUTH DAILY 90 Capsule 12/27/19 25 Active budesonide-formot haylie fumarate (Symbicort) 80-4.5 MCG/ACT AerosolIndication s:Mild persistent asthma without complication take 2 Puffs by inhalation every 12 hours. 30.6 g 2 08/28/19 24 2024 Discontinued celecoxib (CeleBREX) 200 MG CapsuleIndication s:Primary osteoarthritis of left knee Take 1 Capsule by mouth daily. 90 Capsule 1 05/29/20 24 2024 Discontinued Hospital, Clinic, or Other Facility Administered Medication Ordered Dose Route Frequency Start Date End Date Status lidocaine 1 % injection 1 mLIndications:Primary osteoarthritis of right knee 1 mL ONCE (for procedure) 01/15/2021 Active bupivacaine (MARCAINE) 0.25 % injection 2 mLIndications:Primary osteoarthritis of right knee 2 mL ONCE (for procedure) 01/15/2021 Active lidocaine 1 % injection 1 mLIndications:Primary osteoarthritis of right hip 1 mL ONCE (for procedure) 02/11/2021 Active bupivacaine (MARCAINE) 0.25 % injection 2 mLIndications:Primary osteoarthritis of right hip 2 mL ONCE (for procedure) 02/11/2021 Active Active Problems Problem Noted Date Diagnosed Date 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 Per patient the Plaquenil was stopped 2 months prior because of the EKG. At this time we will check a magnesium, and get 2D echo. The patient will be referred to Dr. Romero for further recommendations. In addition, I recommend that is the primary care physician or the rheumatologists monitor the patient's magnesium and potassium as this can worsen the QT interval along with the necessary medications for the treatment of the rheumatoid arthritis. As of now the QTC is not greater than 500 which would be consider clinically significant. Orders: CARDIOLOGY ELECTROPHYSIOLOGY REFERRAL; Future Epigastric pain 10/21/2020 Primary osteoarthritis of left knee 02/04/2020 Acute on chronic blood loss anemia 02/04/2020 Foot pain, bilateral 05/22/2018 Overview (05/22/2018): Saw Dr. Stock. Follows with Dr. Davis Vitamin B 12 deficiency 04/03/2017 Overview (04/03/2017): Dr. Cifuentes SBO (small bowel obstruction) 04/24/2016 Chronic abdominal pain 04/24/2016 Overview (04/03/2017): Dr Amor Osteoarthritis 04/24/2016 Obesity 04/24/2016 History of cervical cancer 02/18/2016 Overview (02/18/2016): Dr Lujan Inflammatory arthritis- c/w rheumatoid arthritis 08/19/2015 Osteoarthritis of hand 07/03/2014 Medication monitoring encounter 07/03/2014 Anemia 07/02/2014 Overview (07/02/2014): Dr Cifuentes Chronic back pain 06/16/2014 Polyarthralgia Pain in unspecified joint 014 Overview (07/02/2014): Dr Raza Urinary incontinence 12/27/2013 Overview (12/27/2013): Dr Celis Irritable bowel syndrome with constipation 12/27 Overview (12/27/2013): Dr Amor Encounter for routine gynecological examination 09/05/2012 Overview (09/05/2012): Dr Lujan Vitamin D deficiency 09/05/2012 Positive CORNELIUS (antinuclear antibody) 07/22/2011 Overview (07/22/2011): Dr Raza Allergic rhinitis 07/22/2011 Mild persistent asthma 07/22/2011 GERD (gastroesophageal reflux disease) Overview (09/05/2012): Dr. Gold Arthritis Overview (05/22/2018): Both knees. Saw Dr. Adkins. Follows with Dr. Rodriguez Asthma Overview (12/27/2013): Dr Higginbotham Fibromyalgia Overview (02/18/2016): Saw Dr Raza Hiatal hernia Hyperlipidemia Assessment & Plan (08/12/2024 2:00 PM CRYPTOLOGICAL TECHNICIAN): Stable continue current management 2D echo from 2019 reviewed results below. Resolved Problems Problem Noted Date Diagnosed Date Resolved Date Low blood potassium 05/16/2017 05/22/20 18 Left foot pain 07/02/2014 05/22/2018 Overview (12/30/2014): Saw Dr Stock Asthma 07/22/2011 07/22/2011 Mild intermittent asthma 07/22/201104/2011 H/O endoscopy 04/14/2011 05/05/2016 Overview (03/06/2013): Hudson Muhammad MD OA (osteoarthritis) 11/12/2010 07/22/20 11 Fibromyalgia 11/12/2010 07/22/2011 Asthma 02/25/2010 Encounters Date Type Department Care Team Description 12/23/2024 [facility]ill [facility] [address] [facility] [address] [place] [address] Emilia Horner MD Medication Refill 12/23/2024 [facility] [place] [address] [place] [address] Noemi Forbes APRN, SAMANTHA Medication Refill 10/21/2024 [facility] [address] [place] [address] Sabas Gold MD Medication Refill (Elavil and nexium) 10/21/2024 MyChart RX Renewal [facility] - [facility] [address] [place] [address] Emilia Horner MD Medication Renewal Request 10/21/2024 MyChart RX Renewal [facility] - Family Medicine - Normal [address] [place] [address] Noemi Forbes, CELL INSTALLER, RN LAB Medication Renewal Request from Last 3 Months Immunizations Immunization Administration Dates Next Due Covid-19, Mrna, Lnp-s, Pf, 1 00 Mcg Or 50 Mcg Dose (MODERNA) 06/16/2021 Influenza Vaccine greater than 3 yrs 04/22/2018 Influenza Vaccine, Quadrivalent, PF 08/28/2023,1 09/17/2019,05/24/2019 Influenza, Quadrivalent, Adjuvanted 06/16/2021 Influenza, Trivalent, Adjuvanted, PF 05/29/2024 PUR TDAP 7+ YRS IM 12/27/2013 Pneumococcal Vaccine - 13 Valent 05/24/2019 Pneumococcal Vaccine Adult - 23 Valent 0 TD VACCINE 08/14/2002 Family History Medical History Relation Name Comments Allergic Rhinitis Daughter Asthma Father Rayo Congestive Heart Failure Father Rayo Heart Attack Father Rayo Hypertension Mother Atiya Osteoarthritis Mother Atiya Breast Cancer Neg Hx Relation Name Status Comments Daughter Alive Father Rayo Alive CAD, arthritis, aortic aneurysm Maternal Grandfather Maternal Grandmother Mother Atiya Alive Cardiomegaly Paternal Grandfather Paternal Grandmother Sister Alive Social History Tobacco Use Types Packs/Day Years Used Date Smoking Tobacco: Never Smokeless Tobacco: Never Tobacco Cessation:Counseling Given: No Alcohol Use Standard Drinks/Week Comments Yes 1 (1 standard drink = 0.6 oz pure alcohol) Occasionally have a couple glasses if wine. [facility] [employer] Answer Date Recorded In the past 12 months has [employer], [employer], oil, or water [employer] threatened to shut off services in your [...] 10/08/2023 How often do you attend chur or buddhist services? More than 4 times per year 10/08/2023 Do you belong to any clubs o r organizations such as oriental orthodox groups, unions, fraternal or athletic groups, or [...] Total Score - Questions 1-9 5 01/[address] [facility] - Occupational Stress Questionnaire Answer Date Recorded [...] place to sleep or slept in a group home (including now)? No 10/08/2023 Education Answer Date Recorded What is the highest level of school you have completed or the highest degree you have received? Master's degree (e.g., MA, MS, Carolyn, MEd, MURAL PAINTER, MALA) 01/25/2023 Sexually Active Control Partners Comments Not Currently Male Comments No Sex and Gender Information Value Date Recorded Sex Assigned at Not on file Legal Sex Female 3:00 AM CRYPTOLOGICAL TECHNICIAN Gender Identity Not on file Sexual Orientation Not on file Last Filed Vital Signs Vital Sign Reading Time Taken Comments Blood Pressure 132/74 09/20/2024 10:28 AM CRYPTOLOGICAL TECHNICIAN Pulse 96 09/20/2024 10:28 AM CRYPTOLOGICAL TECHNICIAN Temperature 36.7 C (98 F) 07/29/2024 9:55 AM CRYPTOLOGICAL TECHNICIAN Respiratory Rate 20 09/20/2024 10:28 AM CRYPTOLOGICAL TECHNICIAN Oxygen Saturation 93% 08/12/2024 1:09 PM CRYPTOLOGICAL TECHNICIAN Inhaled Oxygen Concentration - - Weight 95.3 kg (210 lb) 09/20/2024 10:28 AM CRYPTOLOGICAL TECHNICIAN Height 170.2 cm (5' 7 ) 09/20/2024 10:28 AM CRYPTOLOGICAL TECHNICIAN Body Mass Index 32.89 09/20/2024 10:28 AM CRYPTOLOGICAL TECHNICIAN Plan of Treatment Health Maintenance Due Date Last Done Comments Zoster Immunization (1 of 2) 1972 Cologuard 2003 Immunochemical Fecal Occult Blood 2003 Respiratory Syncytial Virus (RSV) Immunization (Adult) (1 - Risk 60-74 years 1-dose series) 2013 Mammogram 09/05/2023 09/05/2022, 10/2021, 08/03/2020, Additional history exists Td Immunization Every 10 Years (Adults With 1 Tdap) 12/28/2023 12/27/2013, 08/14/2002 SARS-COV-2 Immunization ( season) 2024 06/01/2022, 12/22/2021, 06/16/2021, Additional history exists DEXA Bone Density 09/05/2024 09/05/2022, , 08/03/2020, Additional history exists Colonoscopy 02/09/2025 02/09/2015, 2 04/2015, 01/12/2010, Additional history exists Colorectal Cancer Screening 02/09/2025 02/09/2015, 08/2009, 03/13/2007 Pneumococcal Immunization (50+ years) Completed 07/17/2020, 05/24/2019 Pneumococcal Immunization Combined Discontinued 07/17/2020, 05/24/2019 Hepatitis C Virus (HCV) Screening Completed 02/07/2023 Influenza Immunization Completed , 08/28/2023, 06/16/2021, Additional history exists Hepatitis B Immunization Aged Out No longer eligible based on patient's age to complete this topic Human Papillomavirus (HPV) Immunization Aged Out No longer eligible based on patient's age to complete this topic Meningococcal Immunization (ACWY) Aged Out No longer eligible based on patient's age to complete this topic Rotavirus Immunization Aged Out No lo nger eligible based on patient's age to complete this topic Medical Devices Implanted Type Area Dental Instructor Device Identifier Shelf Expiration Date Model / Serial / Lot Injector Bone Cement 1x40 High Viscosity - [id number] Implanted:Qty: 1 on 02/03/2020 by Trip Rodriguez DO at [facility] IMPLANT Left: Knee [employer] 11/12/2023 [id number] / / [id number] Injector Bone Cement 1x40 W/Gentamicin - [id number] Implanted:Qty: 1 on 02/03/2020 by Trip Rodriguez DO at [facility] IMPLANT Left: Knee [employer] 07/13/2021 [id number] / / [id number] Component Patellar 7.5mm 32mm Glenna Ii - [id number] Implanted:Qty: 1 on 02/03/2020 by Trip Rodriguez DO at [facility] IMPLANT Left: Knee [employer] 12/16/2029 [id number] / / [id number] Baseplate Tib Glenna Ii 3 Left Knee Ti Nonporous - [id number] Implanted:Qty: 1 on 02/03/2020 by Trip Rodriguez DO at [facility] IMPLANT Left: Knee [employer] 07/05/2029 [id number] / / [id number] Component Fem 5 Knee Left Post Stab Glenna Ii Legion Spc Oxinium - [id number] Implanted:Qty: 1 on 02/03/2020 by Trip Rodriguez DO at [facility] IMPLANT Left: Knee [employer] 10/06/2029 [id number] / / [id number] Insert Tib 3-4 9mm Knee Xlpe Post Stabilized High Flexion Legion - [id number] Implanted:Qty: 1 on 02/03/2020 by Trip Rodriguez DO at [facility] IMPLANT Left: Knee [employer] 01/31/2028 [id number] / / [id number] Procedures Procedure Name Priority Date/Time Associated Diagnosis Comments HEPATITIS C ANTIBODY Routine 02/07/2023 2:50 PM CDT Encounter for hepatitis C screening test for low risk patient BONE DENSITY GENERIC 09/05/2022 12:00 AM CRYPTOLOGICAL TECHNICIAN MAMMOGRAM BILATERAL GENERIC 09/05/2022 12:00 AM CRYPTOLOGICAL TECHNICIAN HM COLONOSCOPY Routine 02/09/2015 from Last 3 Months or Most Recently Relevant to Health Maintenance Results * HEPATITIS C ANTIBODY (02/07/2023 2:50 PM CDT) hepatitis C antibody 0.05 <1 S/CO [facility] ARCH [id number] B 02/08/2023 10:38 AM CDT [facility] Comment: Signal/Cutoff ratio < 0.79 is Nondetected Signal/Cutoff ratio 0.80-0.99 is Grayzone Signal/Cutoff ratio > 0.99 is Detected Supplemental assays are recommended if signal/cutoff ratio is >/=1.00. Signal/cutoff ratio result >/= 5.00 is 97% predictive of positivity for recombinant immunoblot assay (RIBA) and will be reported to the [place] Department of Public Health as required. Blood Venipuncture / Unknown 02/07/2023 2:50 PM CDT 02/07/2023 3:00 PM CDT us Emilia Horner MD CHEMISTRY ORDERABLES Final Result [facility] [address] [place] [address], [place] * BONE DENSITY GENERIC SCAN (09/05/2022 12:00 AM CRYPTOLOGICAL TECHNICIAN) 09/05/2022 us Provider Scan IMG DEXA ORDERABLES Final Result SCAN * MAMMOGRAM BILATERAL MISCELLANEOUS (09/05/2022 12:00 AM CRYPTOLOGICAL TECHNICIAN) 09/05/2022 us Provider Scan IMG MAMMO ORDERABLES Final Resul t SCAN * HM COLONOSCOPY (02/09/2015) Tyra English MD PROCEDURE/MINOR SURGICAL ORD ERABLES Final Result from Last 3 Months or Most Recently Relevant to Health Maintenance Insurance MEDICARE C AETNA Advance Directives * Full Code (Latest Code Status on File) Date Activated Date Inactivated Comments 10/02/2020 5:13 AM 10/04/2020 2:51 PM CPR-Full Lloyd atment: FULL ARREST: Attempt Resuscitation/CPR wit intubation and mechanical ventilation. PRE-ARREST: Use entire range of life support measures to stabilize the patient. * Full Code Date Activated Date Inactivated Comments 02/18/2020 1:08 PM 10/02/2020 2:19 AM * Full Code Date Activated Date Inactivated Comments 02/03/2020 5:36 PM 02/05/2020 4:41 PM * Full Code Date Activated Date Inactivated Comments 04/24/2016 6:56 PM 04/27/2016 1:50 PM Care Teams Financial Dealers Relationship Specialty Start Date End Date Emilia Horner MD [address] [address] PCP - General Family Medicine 01/02/19 Amauri Raza MD Consulting Physician Rheumatology 08/05/14 Trip Higginbotham MD [address] [place] [address] Consulting Physician Allergy & Immunology 10/06/14 Ofelia Bundy PAC [address] [place] [address] Physician Rocket Motor Mechanic Physician Rocket Motor Mechanic 10/06/14 Sabas Gold MD [address] [place] [id number] Consulting Physician Gastroenterology 04/01/15 Andre Celis MD [address] [place] [phone] Consulting Physician Urology 05/21/18 Gabriela Krishnamurthy MD [address] [facility] [address] [place] [address] Advertising Traffic Manager Interventional Cardiology 10/14/24 Marcial Ceja MD [address] [facility] [place] [address] Consulting Physician Cardiovascular Disease - Cardiology 10/14/24
--- OUTSIDE RECORDS SUMMARY | 2025-01-02 11:16 | XMS_ITS | Encounter Summary ---
Author Organization [facility] Address [address] [place] [address] Phone Care Team Providers Care Fabric Worker Name Role Phone Amauri Raza MD Unavailable [phone] Trip Higginbotham MD Unavailable [phone] Ofelia Bundy PAC Unavailable Sabas Gold MD Unavailable [phone] Andre Celis MD Unavailable Emilia Horner MD Primary Care Provider Gabriela Krishnamurthy MD Unavailable [phone] Marcial Ceja MD Unavailable Reason for Visit * Reason Comments Medication Refill Encounter Details Date Type Department Care Team (Late st Contact Info) Description 12/28/2021 [facility]ill [facility] - [place] [address] [place] [address] Sabas Gold MD [address] [place] [address] Medication Refill Social History Tobacco [...] on file Legal Sex Female 3:00 AM RN INTERNATIONAL Gender Identity Not on file Sexual Orientation Not on file COVID-19 Exposure Response Date Recorded In the last 10 days, have yo u been in contact with someone who was confirmed or suspected to have Coronavirus/COVID-19? No / Unsure 12/24/2021 9:42 AM CDT documented as of this encounter Miscellaneous Notes * Telephone Encounter - Fawn Swain - 12/29/2021 8:11 AM CDT THIS IS A DUPLICATE documented in this encounter Plan of Treatment [...] documented as of this encounter Care Teams Fabric Worker Relationship Specialty Start Date End Date Emilia Horner MD [address] [facility] [address] [place] [address] PCP - General Family Medicine 01/02/19 Amauri Raza MD Consulting Physician Rheumatology 08/05/14 Trip Higginbotham MD [address] [place] [address] Consulting Physician Allergy & Immunology 10/06/14 Ofelia Bundy PAC [address] [place] [address] Physician Service Unit Operator Physician Service Unit Operator 10/06/14 Sabas Gold MD [address] [place] [phone] Consulting Physician Gastroenterology 04/01/15 Andre Celis MD [address] [place] [phone] Consulting Physician Urology 05/21/18 Gabriela Krishnamurthy MD [address] [facility] [place] [address] Poising Inspector Interventional Cardiology 10/14/24 Marcial Ceja MD [address] [facility] [place], [place] [address] Consulting Physician Cardiovascular Disease - Cardiology 10/14/24 documented as of this encounter
--- OUTSIDE RECORDS SUMMARY | 2025-01-02 11:16 | XMS_ITS | Encounter Summary ---
Author Organization [facility] Address [address] [place] [address] Phone Care Team Providers Care Manufacturing Engineering Intern Name Role Phone Amauri Raza MD Unavailable Trip Higginbotham MD Unavailable [phone] Ofelia Bundy PAC Unavailable [phone] Sabas Gold MD Unavailable [phone] Andre Celis MD Unavailable Emilia Horner MD Primary Care Provider Gabriela Krishnamurthy MD Unavailable Marcial Ceja MD Unavailable Reason for Visit * Reason Comments Medication Refill Encounter Details Date Type Department Care Team (Late st Contact Info) Description 11/18/2020 Refill [facility] - [place] [address] [place] [address] Sabas Gold MD [address] [place] [address] Medication Refill Social History Tobacco [...] on file Legal Sex Female 3:00 AM JOB SPOTTER Gender Identity Not on file Sexual Orientation Not on file COVID-19 Exposure Response Date Recorded In the last month, have you been in contact with someone who was confirmed or suspected to have Coronavirus / COVID-19? No / Unsure 10/30/2020 2:01 PM CDT documented as of this encounter Miscellaneous Notes * Telephone Encounter - Angie Guerrero RN - 11/20/2020 8:56 AM CDT Received electronic refill request for nexium Last OV: 10/21/2020 Future OV: No future OV scheduled at this time Recommendations: Impression/Recommendations: SBO - likely adhesion related Symptomatic anemia - no lesions throughout GI tract, on IV iron and B12 per hematology, possible myelodysplastic syndrome GERD - stable on PPI Dyspepsia - suspect IBS Liver??cyst??- likely benign on CT 2020 Obesity? Recommendations: Surgical opinion Contiue PPI qAM prn and Elavil qPM prn Probiotic daily Stool softener daily F/u 1 year documented in this encounter Plan of Treatment [...] Total Score: 1 07/17/20 20 9:00 AM JOB SPOTTER documented as of this encounter Care Teams Manufacturing Engineering Intern Relationship Specialty Start Date End Date Emilia Horner MD [address] [address] PCP - General Family Medicine 01/02/19 Amauri Raza MD Consulting Physician Rheumatology 08/05/14 Trip Higginbotham MD [address] [place] [address] Consulting Physician Allergy & Immunology 10/06/14 Ofelia Bundy PAC [address] [place] [address] Physician Public Relations Studies Director Physician Public Relations Studies Director 10/06/14 Sabas Gold MD [address] [place] [phone] Consulting Physician Gastroenterology 04/01/15 Andre Celis MD [address] [place] [phone] Consulting Physician Urology 05/21/18 Gabriela Krishnamurthy MD [address] [place] [address] Business Information Manager Interventional Cardiology 10/14/24 Marcial Ceja MD [address] [place] [address] Consulting Physician Cardiovascular Disease - Cardiology 10/14/24 documented as of this encounter
--- OUTSIDE RECORDS SUMMARY | 2025-01-02 11:16 | XMS_ITS | Encounter Summary ---
Author Organization [facility] Address [address] [place] [address] Phone Care Team Providers Care Gas Operation Manager Name Role Phone Amauri Raza MD Unavailable [phone] Trip Higginbotham MD Unavailable [phone] Ofelia Bundy PAC Unavailable [phone] Sabas Gold MD Unavailable [phone] Andre Celis MD Unavailable Emilia Horner MD Primary Care Provider Gabriela Krishnamurthy MD Unavailable Marcial Ceja MD Unavailable Reason for Visit * Reason Comments Medication Refill Encounter Details Date Type Department Care Team (Late st Contact Info) Description 12/23/2022 Refill [facility] - Family Medicine - Normal [address] [facility] [address] [place] [address] Emilia Horner MD [address] [facility] [address] [place] [address] Medication Refill Social History Tobacco Use Types [...] on file Legal Sex Female 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 Order pended #90/0 pended and routed to provider to review. Patient is scheduled for annual CPE/med check 01/25/2023 All Patient Appointments Provider Department Dept Phone 01/25/2023 9:15 AM Emilia Horner [facility] - Family Medicine - Normal [phone] Requested Prescriptions Pending Prescriptions Disp Refills ??? amitriptyline (ELAVIL) 50 MG Tablet [Pharmacy Med Name: AMITRIPTYLINE 50MG TABLETS] 90 Tablet 0 Sig: TAKE 1 TABLET BY MOUTH EVERY NIGHT Not Delegated - Tricyclic Agents Protocol Failed - 12/23/2022 4:31 PM Failed - This refill cannot be delegated Passed - Visit with relevant provider in past 12 months or upcoming 90 days Recent Visits Date Type Provider Dept 01/14/22 Office Visit Emilia Horner MD [facility] Normal [place] 01/07/22 Office Visit Fred Johnson, OFFICE HELPER CLERICAL, SASH CLAMP OPERATOR [facility] Normal [place] Showing recent visits within past 365 days and meeting all other requirements Future Appointments Date Type Provider Dept 01/25/23 Appointment Emilia Horner MD [facility] Normal [place] Showing future appointments within [...] documented as of this encounter Care Teams Gas Operation Manager Relationship Specialty Start Date End Date Emilia Horner MD [address] [address] PCP - General Family Medicine 01/02/19 Amauri Raza MD Consulting Physician Rheumatology 08/05/14 Trip Higginbotham MD [address] [place] [address] Consulting Physician Allergy & Immunology 10/06/14 Ofelia Bundy PAC [address] [place] [address] Physician Clinical Genetics Laboratory Chief Physician Clinical Genetics Laboratory Chief 10/06/14 Sabas Gold MD [address] [place] [address] Consulting Physician Gastroenterology 04/01/15 Andre Celis MD [address] [place] [address] Consulting Physician Urology 05/21/18 Gabriela Krishnamurthy MD [address] [place], [place] [address] Managed Services Sales Consultant Interventional Cardiology 10/14/24 Marcial Ceja MD [address] [place], [place] [address] Consulting Physician Cardiovascular Disease - Cardiology 10/14/24 documented as of this encounter
--- OUTSIDE RECORDS SUMMARY | 2025-01-02 11:16 | XMS_ITS | Encounter Summary ---
Author Organization [facility] Address [address] [place] [address] Phone Care Team Providers Care Rebar Fabricator Name Role Phone Amauri Raza MD Unavailable Trip Higginbotham MD Unavailable [phone] Ofelia Bundy PAC Unavailable Sabas Gold MD Unavailable [phone] Andre Celis MD Unavailable Emilia Horner MD Primary Care Provider Gabriela Krishnamurthy MD Unavailable Marcial Ceja MD Unavailable Encounter Details Date Type Department Care Team (Late st Contact Info) Description 08/28/2023 Telephone [facility] - Family Medicine - Normal [address] [facility] [address] [place], [place] [id number] Noemi Forbes APRN, DIRECTOR BROADCAST [address] [facility] [address] [place], [place] [address] Social History Tobacco Use Types Packs/Day Years Used Date Smoking Tobacco: Never Smokeless Tobacco: Never Alcohol Use Standard Drinks/Week Comments Yes 0 (1 standard drink = 0.6 oz pur e alcohol) Occasional, 1 glass per month PHQ-2 Answer Date Recorded Total Score - Questions 1-9 5 01/12 Education Answer Date Recorded What is the highest level of school you have completed or the highest degree you have received? 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 Gender Identity Not on file Sexual Orientation Not on file documented as of this encounter Plan of Treatment Not on file documented as of this encounter Visit Diagnoses Diagnosis Mild persistent asthma with exacerbation Unspecified asthma, with exacerbation Mild persistent asthma without complication Unspecified asthma documented in this encounter Additional Health Concerns Infection Onset Date Last Indicated Resolved Time COVID - 19 03/27/2024 03/27/2024 03/27/2024 12:4 2 PM CDT Assessment Noted Time PHQ-9 Depression Total Score: 5 01/26/20 10:00 AM CDT documented as of this encounter Care Teams Rebar Fabricator Relationship Specialty Start Date End Date Emilia Horner MD [address] [address] PCP - General Family Medicine 01/02/19 Amauri Raza MD Consulting Physician Rheumatology 08/05/14 Trip Higginbotham MD [address] [place] [address] Consulting Physician Allergy & Immunology 10/06/14 Ofelia Bundy PAC [address] [place] [address] Physician Mechanical Maintenance Supervisor Physician Mechanical Maintenance Supervisor 10/06/14 Sabas Gold MD [address] [place] [address] Consulting Physician Gastroenterology 04/01/15 Andre Celis MD [address] [place] [id number] Consulting Physician Urology 05/21/18 Gabriela Krishnamurthy MD [address] [place], [place] [address] Veneer Production Machine Operator Interventional Cardiology 10/14/24 Marcial Ceja MD [address] [facility] [address] [place], [place] [address] Consulting Physician Cardiovascular Disease - Cardiology 10/14/24 documented as of this encounter
--- OUTSIDE RECORDS SUMMARY | 2025-01-02 11:16 | XMS_ITS | Encounter Summary ---
Author Organization [facility] [employer] Address [address] [place] [address] Care Team Providers Care Trade Recruiter Name Role Phone Ani Vitale DO Primary Care Provider [phone] Reason for Visit * Reason Comments Establish Care Encounter Details Date Type Department Care Team (Late st Contact Info) Description 01/02/2025 10:30 AM CDT Office Visit [facility] Oncology and Hematology - [place] [address] [facility] [address] [place] [address] Kory Franco MD [address] [facility] [address] [place] [address] Chronic anemia (Primary Dx) Social History Tobacco Use Types Packs/Day Years Used Date Smoking Tobacco: Never Smokeless Tobacco: Never Tobacco Cessation:Counseling Given: Not Answered Alcohol Use Standard Drinks/Week Comments Yes 0 (1 standard drink = 0.6 oz pur e alcohol) occasional Comments Unknown Sex and Gender Information Value Date Recorded Sex Assigned at Not on file Legal Sex Female 3:38 PM NEWS EDITOR Gender Identity Not on file Sexual Orientation Not on file documented as of this encounter Last Filed Vital Signs Vital Sign Reading Time Taken Comments Blood Pressure 145/83 01/02/2025 10:47 AM CDT Pulse 94 01/02/2025 10:44 AM CDT Temperature 36.3 C (97.3 F) 01/02/2025 10:44 AM CDT Respiratory Rate 15 01/02/2025 10:44 AM CDT Oxygen Saturation 94% 01/02/2025 10:44 AM CDT Inhaled Oxygen Concentration - - Weight 94.3 kg (208 lb) 01/02/2025 10:44 AM CDT Height 170.2 cm (5' 7 ) 01/02/2025 10:44 AM CDT Body Mass Index 32.58 01/02/2025 10:44 AM CDT documented in this encounter Progress Notes * Kory Franco MD - 01/02/2025 11:08 AM CDT Hematology-oncology consult Note Requesting Physician Ani Vitale, Primary Care Physician Ani Vitale, Problem list There is no problem list on file for this patient. Previous TREATMENT ? Measurable Disease ? Reason for Visit Rebekah Mercado is a 69 y.o. female who was referred for consultation for chronic anemia. History of present illness This is a pleasant 69-year-old slightly obese female with history of cervical cancer status post hysterectomy in 1999, fibromyalgia, gastroesophageal reflux disease, hiatal hernia, hyperlipidemia, seronegative rheumatoid arthritis and fatty liver recently moved from [place], [place] to [place] to live close to the daughter. She was seeing Dr. Up for her anemia which was diagnosed in 2007. She received iron infusion at that time. Her last iron infusion was in fall 2023. She isintolerant to oral iron due to constipation and bowel obstruction. She has intermittent tiredness and fatigue and muscle cramping. Her last colonoscopy was in 2014 and last EGD was April 2011. 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 She denies any melena hematochezia. Her weight and appetite stable. She denies being a vegetarian. Denies any previous stomach surgeries. No other new complaints. Past Medical History Past Medical History: Diagnosis Date Asthma Hyperlipidemia Malignant neoplasm (CMS/HCC) Seronegative rheumatoid arthritis Hiatal hernia Fibromyalgia GERD Fatty liver Surgical History Past Surgical History: Procedure Laterality Date HX CARPAL TUNNEL RELEASE Bilateral HX FOOT SURGERY Right Bone Spur HX HERNIA REPAIR Right HX HIP REPLACEMENT Right 2022 HX HYSTERECTOMY Bilateral 1999 HX KNEE REPLACEMENT Bilateral R knee in 2023, L knee in 2022 HX NECK SURGERY Bilateral 3 disc replacement,titanium support 2007 Medications Current Outpatient Medications Medication Sig Dispense Refill albuterol sulfate HFA 90 mcg/actuation aerosol inhaler Take 2 Puffs by inhalation. amitriptyline (ELAVIL) 50 mg tablet Take 50 mg by mouth daily at bedtime. celecoxib (CeleBREX) 200 mg capsule Take 200 mg by mouth daily. CARBOXYMETHYLCELLULOSE SODIUM OP by Ophthalmic route. fexofenadine HCl (FEXOFENADINE ORAL) Take by mouth. mirabegron (MYRBETRIQ) 50 mg Extended Release 24 hour tablet Take 50 mg by mouth daily. budesonide-formoteroL (SYMBICORT) 80-4.5 mcg/actuation HFA Aerosol Inhaler Symbicort 80 mcg-4.5 mcg/actuation HFA aerosol inhaler cholecalciferol, vitamin D3, 1,000 unit Take 2,000 Units by mouth daily. cyanocobalamin (VITAMIN B-12) 1,000 mcg/mL Solution Inject 1,000 mcg by intramuscular injection every 30 days. diclofenac sodium (VOLTAREN) 1 % gel Apply to affected area. DOCUSATE CALCIUM ORAL Take 1 Tablet by mouth daily at bedtime. esomeprazole (NexIUM) 40 mg Capsule, Delayed Release(E.C.) Take 40 mg by mouth daily. fenofibrate (LOFIBRA) 160 mg Tablet Take 160 mg by mouth daily. fluticasone propionate (FLONASE) 50 mcg/spray [place], Suspension nasal inhaler Administer 1-2 Spraysin each nostril daily. gabapentin (NEURONTIN) 300 mg capsule Take 300 mg by mouth 2 times daily. lactobacillus rhamnosus, GG, (CULTURELLE) 10 billion cell Capsule Take 1 Capsule by mouth daily. montelukast (SINGULAIR) 10 mg tablet Take 10 mg by mouth late in the day. No current facility-administered medications for this visit. Allergies Allergies Allergen Reactions Tetracycline Hives Immunizations: There is no immunization history on file for this patient. Family History Family History Problem Relation Name Age of Onset Heart Disease Father No Known Problems Mother No Known Problems Sister No Known Problems Child Social History Social History Tobacco Use Smoking status: Never Smokeless tobacco: Never Substance Use Topics Alcohol use: Yes Comment: occasional Review of Systems Constitutional: Patient did not mention fever; no night sweats; no anorexia; no weight loss; complain of mild tiredness and fatigue NEENT: Patient did not mention headache; no change in vision; no change in hearing; no sore throat;no dysphagia Respiratory: Patient did not mention shortness of breath; no pleuritic chest pain; no cough; no hemoptysis Cardiac: Patient did not mention cardiac-like chest pain; no palpitations; no orthopnea; no PND; noDOE Breasts: Patient did not mention tenderness; no masses GI: Patient did not mention abdominal pain; no nausea; no vomiting; no diarrhea; no hematochezia; no melena : Patient did not mention dysuria; no frequency; no hesitancy; no hematuria PLUMBING ENGINEERING DRAFTSPERSON: Musculosketetal: Patient did not mention bone pain; no arthralgia; no joint swelling; no myalgia; Skin: Patient did not mention pruritis; no rash; no petechiae; no ecchymoses Endocrine: Patient did not mention polydipsia; no polyuria; no unusual weight gain Neuro: Patient did not mention headache; no change in vision; no sensory changes; no muscle weakness; no confusion; no seizures Psych: Patient did not mention anxiety; no depression; Physical Exam Vitals: As per nursing note Constitutional: Well developed, well nourished, no acute distress, non-toxic appearance Teeth and gum. No signs of infection or swelling. Eyes: PERRL, conjunctiva normal HEENT: Atraumatic, external ears normal, nose normal, oropharynx moist, no pharyngeal exudates. no sinus tenderness Neck- normal range of motion, no tenderness, supple Respiratory: No respiratory distress, normal breath sounds, no rales, no wheezing Cardiovascular: Normal rate, normal rhythm, no murmurs, no gallops, no rubs GI: Soft, nondistended, normal bowel sounds, nontender, no splenomegaly, no hepatomegaly, no mass, no rebound, no guarding : No costovertebral angle tenderness Musculoskeletal: No edema, no tenderness, no deformities. Back- no tenderness Integument: Well hydrated, no rash, Digits and nails inspection normal Lymphatic: No lymphadenopathy noted Neurologic: Alert & oriented x 3, CN 2-12 normal, normal motor function, normal sensory function, no focal deficits noted Psychiatric: Speech and behavior appropriate ? labs No results found for this or any previous visit (from the past 24 hours). Pathology ? Imaging & Other Studies Performance Status? Assessment / Plan: ? Chronic anemia. Patient is a pleasant 69-year-old obese female with history of seronegative rheumatoid arthritis, fibromyalgia, hiatal hernia, gastroesophageal reflux disease, fatty liver and hyperlipidemia along with history of cervical cancer status post hysterectomy in 1999. She was found to have iron deficiency anemia in 2007. 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 She has been getting intermittentiron infusion with the last one in follow-up 2023. She is intolerant to oral iron. I will repeat labs including CBC, CMP, iron profile, soluble transferrin receptor, vitamin B12 level and methylmalonic acid level. Based on the results we will start her on iron infusion. She will be referred to gastroenterology as well based on the iron profile. I have answered all the questions to patient satisfaction. Phone visit in 2 weeks. GERD and hiatal hernia. Patient is on Nexium. Negative rheumatoid arthritis. Patient is on Plaquenil. She is also on Celebrex.. Thank you very much for allowing me to participate in Rebekah Mercado's evaluation and management. Please feel free to contact if I can be of any further assistance in your patient???s care requiring hematology or oncology evaluation. Sincerely, ? ? Kory Franco M.D. cell TOBACCO COUNSELING She is not a tobacco/nicotine user. Kory Franco MD ,01/02/2025 11:08 AM ? Total time spent 60 minutes, two third of the total time spent counseling patient [id number]. CC:?Ani Vitale DO documented in this encounter Plan of Treatment Upcoming Encounters Date Type Department Care Team (Late st Contact Info) Description 01/16/2025 4:30 PM CDT Telephone Check Up [facility] Oncology and Hematology - [place] [address] [facility] [address] [place] [address] Kory Franco MD [address] [facility] [address] [place] [address] Scheduled Orders Name Type Priority Associated Diagnoses Orde r Schedule CBC WITH DIFFERENTIAL Lab Stat Chronic anemia Expected: 01/02/2025, Expires: 01/02/2026 COMPREHENSIVE METABOLIC PANEL Lab Stat Chronic anemia Expected: 01/02/2025, Expires: 01/02/2026 FERRITIN Lab Routine Chronic anemia Expected: 01/02/2025, Expires: 01/02/2026 IRON, TIBC, AND PERCENT SATURATION Lab Routine Chronic anemia Expected: 01/02/2025, Expires: 01/02/2026 LACTATE DEHYDROGENASE Lab Routine Chronic anemia Expected: 01/02/2025, Expires: 01/02/2026 METHYLMALONIC ACID Lab Routine Chronic anemia Expected: 01/02/2025, Expires: 01/02/2026 TRANSFERRIN RECEPTOR TFR SOLUBLE Lab Routine Chronic anemia Expected: 01/02/2025, Expires: 01/02/2026 VITAMIN B12 AND FOLATE Lab Routine Chronic anemia Expected: 01/02/2025, Expires: 01/02/2026 documented as of this encounter Visit Diagnoses Diagnosis Chronic anemia- Primary Anemia, unspecified documented in this encounter Care Teams Trade Recruiter Relationship Specialty Start Date End Date Ani Vitale DO [address] [facility] [address] [place] [id number] PCP - General Family Practice 01/02/25 documented as of this encounter
--- OUTSIDE RECORDS SUMMARY | 2025-01-02 11:16 | XMS_ITS ---
Author Organization [facility] Address [address] [place], [place] [address] Care Team Providers Care Lead Painter Name Role Phone Emilia Hernandez Primary Care Provider Unavailable Andre Celis Unavailable [phone] Hansa Ybarra Unavailable [phone] Allergies Allergen (clinical drug ingredient) Drug/Non Drug Allergy documented on EMR Reaction Allergy Type Onset Date Status tetracycline Tetracycline HCl hives Drug Allergy Active REASON FOR VISIT yearly follow up for history of urgency and frequency Medications Medication SIG (Take, Route, Frequency, Duration) Notes Start Date End Date Status [place] 3-6-9 Complex Orally Active NexIUM 40 MG 1 capsule Orally Once a day Active Flonase Allergy Relief 50 MCG/ACT 1 spray in each nostril Nasally Once a day Active Albuterol 90 MCG/ACT Inhalation Active Vitamin E 100 UNIT 1 capsule Orally Once a day Active Cholecalciferol 2000 UNIT Orally Active B Complex Vitamins Orally A ctive Symbicort 80-4.5 MCG/ACT 2 puffs Inhalat ion Twice a day Active Probiotic Orally Active Amitriptyline HCl 25 MG 1 tablet at bedt maxine Orally Once a day Active Estrace 0.1 MG/GM 1 gram Vaginal QHS for the first 2 weeks, then 3 x weekly for 30 days Active B-12 1000 MCG 1 tablet under the tongue and allow to dissolve Sublingual Once a day Active Myrbetriq 50 MG 1 tablet Orally Once a day for 90 days Active Myrbetriq 50 mg 1 tablet Orally Once a day for 30 Active Myrbetriq 50 MG TAKE 1 TABLET BY MOUTH EVERY DAY Orally Once a day for 90 days Patient needs to be seen before further refills Active Social History Alcohol Screen Question Answer Notes Did you have a drink containing alcohol in the p ast year? No Points 0 Interpretation Negative Vital Signs Height 5 ft 7 in in 10/30/2023 Weight 215 lbs 10/30/2023 BMI 33.67 kg/m2 10/30/2023 Encounters Encounter Location Date Provider Diagnosis [facility] [address] [place], [place] [id number] 10/30/2023 Hansa Ybarra Urgency of urination R39.15 ; Postmenopausal atrophic vaginitis N95.2 ; Frequency of micturition R35.0 ; Nocturia R35.1 and Urge incontinence N39.41 Assessments Encounter Date Diagnosis (ICD Code) Assessment Notes Treatment Notes Treatment Clinical Notes Section Notes 10/30/2023 Urgency of urination (ICD-10 - R39.15) The patient's overactive bladder symptoms have been treated in the past with Vesicare 10 mg daily. The patient was having severe dry mouth and constipation. Therefore she tried samples of Myrbetriq 50 mg daily. She understands the risk of Myrbetriq therapy. The patient is happy with the current dosage of Myrbetriq and will follow up in one year 10/30/2023: doing relatively well, no side effects with Myrbetriq 10/30/2023 Postmenopausal atrophic vaginitis (ICD-10 - N95.2) The patient complains of urethral irritation and vaginal dryness. The patient has no history of breast or uterine cancer. We discussed the options, and the patient wished to start vaginal Estrace cream 3 times per week. She understands the risk of vaginal estrogen cream. She will restart this 10/30/2023: continue Estrace as directed 10/30/2023 Frequency of micturition (ICD-10 - R35.0) I will send her urine for PCR on 10/24/22 10/30/2023: continue Myrbetriq 10/30/2023 Nocturia (ICD-10 - R35.1) 10/30/2023 Urge incontinence (ICD-10 - N39.41) 10/30/2023 Other The patient has mild female stress urinary incontinence, but she is not interested in surgical correction at this time Plan Of Treatment Medication Medication Name Sig Start Date Stop Date Notes Estrace 0.1 MG/GM 1 gram Vaginal QHS f or the first 2 weeks, then 3 x weekly for 30 days Myrbetriq 50 MG 1 tablet Orally Once a day for 90 days Treatment Notes Assessment Notes Urgency of urination The patient's overactive bladder symptoms have been treated in the past with Vesicare 10 mg daily. The patient was having severe dry mouth and constipation. Therefore she tried samples of Myrbetriq 50 mg daily. She understands the risk of Myrbetriq therapy. The patient is happy with the current dosage of Myrbetriq and will follow up in one year 10/30/2023: doing relatively well, no side effects with Myrbetriq Postmenopausal atrophic vaginitis The patient complains of urethral irritation and vaginal dryness. The patient has no history of breast or uterine cancer. We discussed the options, and the patient wished to start vaginal Estrace cream 3 times per week. She understands the risk of vaginal estrogen cream. She will restart this 10/30/2023: continue Estrace as directed Frequency of micturition I will send her urine for PCR on 10/24/22 10/30/2023: continue Myrbetriq Other The patient has mild female stress urinary incontinence, but she is not interested in surgical correction at this time Next Appt Details Follow Up: 1 Year, Reason: Progress Notes * Rebekah MERCADO AprilDOB:[birth year] (68 yo F)Acc No.[id number]:10/30/2023 Progress Notes Patient: Rebekah WOO Provider: Venus Ybarra MD :1955 A ge:68 Y S ex:Female Date:10/30/2023 Address:[address] [place], [place] [id number] Pcp:Emilia Travis Subjective: * Chief Complaints: * Y early follow up for history of urgency and frequency * HPI: : The patient has a history of urinary frequency and urgency. This has been managed with Vesicare 10 mg daily. The patient underwent a microscopic hematuria workup in 2012. Her 2013 cystoscopy was normal. 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 The patient also complains of mild female stress urinary incontinence. 0 10/30/2023: maintained on Myrbetriq 50 mg daily, doing relatively well; some frequency and urgency with caffeine and artifical sweeteners. * ROS: G eneral/Constitutional: Headaches N o. C hills N o. F ever N o.? I ntegumentary: Skin rash N o. B oils N o. P ersistant Itch?No. H ematologic/Lymphatic: Swollen glands N o. B lood clotting problem N o.? O phthalmologic: Pain N o. B lurring of vision N o. D ouble vision N o. H EENT/Neck: Ear infection N o. S inus problems N o. S ore throat N o. E ndocrine: Feels cold N o. T iredness N o. E xcessive thirst N o. R espiratory: Cough N o. S hortness of breath N o. W heezing?No. C ardiovascular: Chest pain N o. H igh blood pressure N o. V aricose veins N o. G astrointestinal: Abdominal cramps N o. I ndigestion: N o. N ausea N o. G enitourinary: Urinary frequency y es Leakage and incomplete bladder emptying. P ain with urination y es. U rinary retention N o. M usculoskeletal: Back pain N o. J oint pain N o. N shweta pain N o. N eurologic: Numbness N o. D izziness N o. T remor N o.? * Medical History: * Surgical History: f oot surgery tonsillectomy knee surgery carpal tunnel release inguinal hernia repair hysterectomy, abdominal knee arthroscopy iron infusion R knee replacement 2023 * Hospitalization/Major Diagno stic Procedure: N o Hospitalization History. * Family History: F ather: alive, diagnosed with Kidney cancer. M other: alive, diagnosed with Unspecified essential hypertension. 1 daughter(s) - healthy. . Mother-Cardiomegaly, Hypertension,Arthritis Father-CAD, Arthritis, Aortic Aneurysm, Asthma, Bone cancer, Quadruple Bypass, Level 4 Kidney Disease Daughter-Allergic Rhinitis. * Social History: D rug/Alcohol: A lcohol Screen D id you have a drink containing alcohol in the past year? N o P oints 0 I nterpretation N egative Illicit Drug Use: no. * Medications: T akingMyrbetriq 50 MG Tablet Extended Release 24 Hour 1 tablet Orally Once a day Estrace 0.1 MG/GM Cream 1 gram Vaginal QHS for the first 2 weeks, then 3 x weekly Symbicort 80-4.5 MCG/ACT Aerosol 2 puffs Inhalation Twice a day Probiotic Capsule Orally Amitriptyline HCl 25 MG Tablet 1 tablet at bedtime Orally Once a day Cholecalciferol 2000 UNIT Capsule Orally B Complex Vitamins Tablet Orally [place] 3-6-9 Complex Capsule Orally NexIUM 40 MG Capsule Delayed Release 1 capsule Orally Once a day Vitamin E 100 UNIT Capsule 1 capsule Orally Once a day Flonase Allergy Relief 50 MCG/ACT Suspension 1 spray in each nostril Nasally Once a day Albuterol 90 MCG/ACT Aerosol Solution Inhalation B-12 1000 MCG Tablet Sublingual 1 tablet under the tongue and allow to dissolve Sublingual Once a day Myrbetriq 50 mg Unspecified 1 tablet Orally Once a day Myrbetriq 50 MG Tablet Extended Release 24 Hour TAKE 1 TABLET BY MOUTH EVERY DAY Orally Once a day , Notes to Pharmacist: Patient needs to be seen before further refillsMedication List reviewed and reconciled with the patientTaking Myrbetriq 50 MG Tablet Extended Release 24 Hour 1 tablet Orally Once a day Taking Estrace 0.1 MG/GM Cream 1 gram Vaginal QHS for the first 2 weeks, then 3 x weekly Taking Symbicort 80-4.5 MCG/ACT Aerosol 2 puffs Inhalation Twice a day Taking Probiotic Capsule Orally Taking Amitriptyline HCl 25 MG Tablet 1 tablet at bedtime Orally Once a day Taking Cholecalciferol 2000 UNIT Capsule Orally Taking B Complex Vitamins Tablet Orally Taking [place] 3-6-9 Complex Capsule Orally Taking NexIUM 40 MG Capsule Delayed Release 1 capsule Orally Once a day Taking Vitamin E 100 UNIT Capsule 1 capsule Orally Once a day Taking Flonase Allergy Relief 50 MCG/ACT Suspension 1 spray in each nostril Nasally Once a day Taking Albuterol 90 MCG/ACT Aerosol Solution Inhalation Taking B-12 1000 MCG Tablet Sublingual 1 tablet under the tongue and allow to dissolve Sublingual Once a day Taking Myrbetriq 50 mg Unspecified 1 tablet Orally Once a day Taking Myrbetriq 50 MG Tablet Extended Release 24 Hour TAKE 1 TABLET BY MOUTH EVERY DAY Orally Once a day , Notes to Pharmacist: Patient needs to be seen before further refillsMedication List reviewed and reconciled with the patient * Allergies: T etracycline HCl: hives - Allergyno[Allergies Verified] Objective: * Vitals: H t:5 ft 7 in, Wt:215lbs, BMI:33.67Index. Assessment: * Assessment: 1. U rgency of urination - R39.15 (Primary) 2 . P ostmenopausal atrophic vaginitis - N95.2 3 . F requency of micturition - R35.0 4 . N octuria - R35.1 5 . U rge incontinence - N39.41 Plan: * Treatment: 2. P ostmenopausal atrophic vaginitis Start Estrace Cream, 0.1 MG/GM, 1 gram, Vaginal, QHS for the first 2 weeks, then 3 x weekly, 30 days, 45 Gram, Refills 5. Notes: The patient complains of urethral irritation and vaginal dryness. The patient has no history of breast or uterine cancer. We discussed the options, and the patient wished to start vaginal Estrace cream 3 times per week. She understands the risk of vaginal estrogen cream. She will restart this 10/30/2023: continue Estrace as directed 3. F requency of micturition Notes: I will send her urine for PCR on 10/24/22 10/30/2023: continue Myrbetriq 4. O thers Notes:The patient has mild female stress urinary incontinence, but she is not interested in surgical correction at this time * Procedure Codes: 9 9213 Est Patient Office * Disposition & Communication: C ommunication sent to Referring Provider: Consult letter, Date sent to Referring Provider: 10/30/2023, Communication with Patient: During Office Visit, Date of Communication with Patient: 10/30/2023, Follow-up Plan: Patient to F/U with [facility] * Follow Up: 1 Year * Images: * Sign off status: Completed true * Provider: Venus Ybarra MD Date: 0 10/30/2023 Generated for Verni manav/Miguelangel/Jorge Luissmitting on: 0 01/02/2025 11:16 AM CDT History and Physical Notes * HPI (History of Present Illness) Category Sub-Category Detail Notes Category Not es The patient has a history of urinary frequency and urgency. This has been managed with Vesicare 10 mg daily. The patient underwent a microscopic hematuria workup in 2012. Her 2013 cystoscopy was normal. 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 The patient also complains of mild female stress urinary incontinence. 10/30/2023: maintained on Myrbetriq 50 mg daily, doing relatively well; some frequency and urgency with caffeine and artifical sweeteners
--- OUTSIDE RECORDS SUMMARY | 2025-01-02 11:16 | XMS_ITS | Encounter Summary ---
Author Organization [facility] Address [address] [place] [address] Phone Care Team Providers Care Engine Assembler Name Role Phone Amauri Raza MD Unavailable [phone] Trip Higginbotham MD Unavailable [phone] Ofelia Bundy PAC Unavailable Sabas Gold MD Unavailable [phone] Andre Celis MD Unavailable Emilia Horner MD Primary Care Provider Gabriela Krishnamurthy MD Unavailable [phone] Marcial Ceja MD Unavailable Reason for Visit * Reason Comments Medication Refill Encounter Details Date Type Department Care Team (Late st Contact Info) Description 04/06/2020 Refill [facility] - Gastroenterology - [place] [address] [place] [address] Sabas Gold MD [address] [place] [address] Medication Refill Social History Tobacco [...] on file Legal Sex Female 3:00 AM 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 No / Unsure 04/02/2020 1:40 PM CDT documented as of this encounter Plan of Treatment Not on file documented as of this encounter Visit Diagnoses Not on filedocumented in this encounter Additional Health Concerns Infection Onset Date Last Indicated Resolved Time COVID - 19 08/18/2020 08/18/2020 09/07/2020 12:1 8 AM ENVIRONMENTAL JOURNALIST COVID - 19 Comment:COVID swab is negative, [...] documented as of this encounter Care Teams Engine Assembler Relationship Specialty Start Date End Date Emilia Horner MD [address] [address] PCP - General Family Medicine 01/02/19 Amauri Raza MD Consulting Physician Rheumatology 08/05/14 Trip Higginbotham MD [address] [place], [place] [address] Consulting Physician Allergy & Immunology 10/06/14 Ofelia Bundy PAC [address] [place] [address] Physician Coin Purse Framer Physician Coin Purse Framer 10/06/14 Sabas Gold MD [address] [place] [place] [id number] Consulting Physician Gastroenterology 04/01/15 Andre Celis MD [address] [place] [address] Consulting Physician Urology 05/21/18 Gabriela Krishnamurthy MD [address] [place] [address] Track Superintendent Interventional Cardiology 10/14/24 Marcial Ceja MD [address] [facility] [place], [place] [address] Consulting Physician Cardiovascular Disease - Cardiology 10/14/24 documented as of this encounter
--- OUTSIDE RECORDS SUMMARY | 2025-01-02 11:16 | XMS_ITS | Clinical Summary ---
Author Organization [facility] Nica Diamond Address [address] [place] [address] Care Team Providers Care Powerhouse Attendant Name Role Phone Ani Vitale DO Primary Care Provider [phone] Allergies Active Allergy Reactions Criticality Noted Date Comments Tetracycline Hives High 01/26/2010 Medications albuterol sulfate HFA 90 mcg/actuation aerosol inhaler Take 2 Puffs by inhalation. 4 Active amitriptyline (ELAVIL) 50 mg tablet Take 50 mg by mouth daily at bedtime. 5 Active budesonide-for moteroL (SYMBICORT) 80-4.5 mcg/actuation HFA Aerosol Inhaler Symbicort 80 mcg-4.5 mcg/actuation HFA aerosol inhaler Active celecoxib (CeleBREX) 200 mg capsule Take 200 mg by mouth daily. 3 Active CARBOXYMETHYLC ELLULOSE SODIUM OP by Ophthalmic route. Active cholecalcifero l, vitamin D3, 1,000 unit Take 2,000 Units by mouth daily. Active cyanocobalamin (VITAMIN B-12) 1,000 mcg/mL Solution Inject 1,000 mcg by intramuscular injection every 30 days. Active diclofenac sodium (VOLTAREN) 1 % gel Apply to affected area. Active DOCUSATE CALCIUM ORAL Take 1 Tablet by mouth daily at bedtime. Active esomeprazole (NexIUM) 40 mg Capsule, Delayed Release(E.C.) Take 40 mg by mouth daily. Active fenofibrate (LOFIBRA) 160 mg Tablet Take 160 mg by mouth daily. Active fluticasone propionate (FLONASE) 50 mcg/spray [place], Suspension nasal inhaler Administer 1-2 Sprays in each nostril daily. Active fexofenadine HCl (FEXOFENADINE ORAL) Take by mouth. Activ e gabapentin (NEURONTIN) 300 mg capsule Take 300 mg by mouth 2 times daily. Active lactobacillus rhamnosus, GG, (CULTURELLE) 10 billion cell Capsule Take 1 Capsule by mouth daily. Active mirabegron (MYRBETRIQ) 50 mg Extended Release 24 hour tablet Take 50 mg by mouth daily. Active montelukast (SINGULAIR) 10 mg tablet Take 10 mg by mouth late in the day. Active Active Problems No known active problems Encounters Date Type Department Care Team Description 01/02/2025 10:30 AM CDT Office Visit [facility] Oncology and Hematology - [place] [address] [place] [address] Kory Franco MD Chronic anemia (Primary Dx) from Last 3 Months Family History Medical History Relation Name Comments No Known Problems Child Heart Disease Father No Known Problems Mother No Known Problems Sister Relation Name Status Comments Child Alive Father Mother Alive Sister Alive Social History Tobacco Use Types Packs/Day Years Used Date Smoking Tobacco: Never Smokeless Tobacco: Never Tobacco Cessation:Counseling Given: Not Answered Alcohol Use Standard Drinks/Week Comments Yes 0 (1 standard drink = 0.6 oz pur e alcohol) occasional Comments Unknown Sex and Gender Information Value Date Recorded Sex Assigned at Not on file Legal Sex Female 3:38 PM COIN PURSE FRAMER Gender Identity Not on file Sexual Orientation [...] Mass Index 32.58 01/02/2025 10:44 AM CDT Plan of Treatment Upcoming Encounters Date Type Department Care Team (Late Contact Info) Description 01/16/2025 4:30 PM CDT Telephone Check Up [facility] Oncology and Hematology - [place] [address] [place] [id number] Kory Franco MD [address] [facility] [address] [place] [address] Health Maintenance Due Date Last Done Comments FIT-DNA Q 3 years 1998 FIT/FOBT Q 1 year 1998 Flex Sig/CT Colonography Q 5 years 1998 ZOSTER VACCINE (1 of 2) 2003 BREAST CANCER SCREENING 09/05/2023 09/05/19 23, 08/03/2020, 06/28/2019, Additional history exists DTAP/TDAP/TD VACCINES (2 - T d or Tdap) 12/28/2023 12/27/2013 [place] Preventative Visit/Annual Wellness Visit 08/14/2024 COLORECTAL SCREENING 02/09/2025 02/09/2015 Colorectal Cancer Screening 02/09/2025 OSTEOPOROSIS SCREENING 08/03/2025 08/03/2020, 2013 RSV VACCINE (60+ or ) (1 - 1-dose 75+ series) 2028 PNEUMOCOCCAL VACCINE 50+ YEARS Completed 07/17/2020 , 05/24/2019 INFLUENZA VACCINE Completed 05/29/2024, , 06/16/2021, Additional history exists Insurance [facility] Care Teams Powerhouse Attendant Relationship Specialty Start Date End Date Ani Vitale DO [facility] [facility] [address] [place] [address] PCP - General Family Practice 01/02/25
--- OUTSIDE RECORDS SUMMARY | 2025-01-02 11:16 | XMS_ITS ---
Author Organization [facility] Address [address] [place], [place] [address] Care Team Providers Care Automobile Accessories Salesperson Name Role Phone Emilia Hernandez Primary Care Provider Unavailable Andre Celis Unavailable [phone] Tianna Mckeon Unavailable Encounters Encounter Location Date Provider Diagnosis [facility] [address] [place], [place] [address] 10/31/2024 Tianna Mckeon Plan Of Treatment No Information Progress Notes * Rebekah MERCADODOB:[birth year] (69 yo F)Acc No.[id number]:10/31/2024 Progress Notes Patient: Rebekah WOO Provider: Thaddeus Mckeon NP :1955 A ge:69 Y S ex:Female Date:10/31/2024 Address:[address] [facility], [place], [phone] Pcp:Emilia Travis Subjective: * Chief Complaints: * * Medical History: Objective: * Vitals: Assessment: Plan: * Treatment: * Images: * Electronic signature of Cash Mckeon , N.PMariela on 01/02/2025 at 11:16 AM CDT Sign off status: Pending * Provider: Thaddeus Mckeon NP Date: 0 10/31/2024 Generated for Kailyn em/Miguelangel/Ramonaitting on: 0 01/02/2025 11:16 AM CDT
--- OUTSIDE RECORDS SUMMARY | 2025-01-02 11:16 | XMS_ITS | Encounter Summary ---
Author Organization [facility] Address [address] [place] [address] Phone Care Team Providers Care Cnc Router Operator Name Role Phone Amauri Raza MD Unavailable Trip Higginbotham MD Unavailable [phone] Ofelia Bundy PAC Unavailable [phone] Sabas Gold MD Unavailable [phone] Andre Celis MD Unavailable Emilia Horner MD Primary Care Provider Gabriela Krishnamurthy MD Unavailable Marcial Ceja MD Unavailable Reason for Visit * Reason Comments Medication Refill Encounter Details Date Type Department Care Team (Late st Contact Info) Description 10/16/2023 Refill [facility] - Family Medicine - [place] [address] [facility] [address] [place] [address] Emilia Horner MD [address] [facility] [address] [place] [address] Medication Refill Social History Tobacco Use Types Packs/Day Years Used Date Smoking Tobacco: Never Smokeless Tobacco: Never Alcohol Use Standard Drinks/Week Comments Yes 0 (1 standard drink = 0.6 oz pur e alcohol) Occasional, 1 glass per month [facility] Utilities Answer Date Recorded In the past [...] often do you attend chur ch or buddhist services? More than 4 times per year 10/08/2023 Do you belong to any clubs o r organizations such as mosque groups, unions, fraternal or athletic groups, or [...] Total Score - Questions 1-9 5 01/12 [facility] - [...] place to sleep or slept in a senior care (including now)? No 10/08/2023 Education Answer Date Recorded What is the highest level of school you have completed or the highest degree you have received? Master's degree (e.g., MA, MS, Carolyn, MEd, MANAGER ASSURANCE, MALA) 01/25/2023 Sexually Active Control Partners Comments Not Currently Male Comments No Sex and Gender Information Value Date Recorded Sex Assigned at Not on file Legal Sex Female 3:00 AM DEPUTY CHIEF MAGISTRATE Gender Identity Not on file Sexual Orientation Not on file documented as of this encounter Miscellaneous Notes * Telephone Encounter - Pao Melo RN - 10/17/2023 11:25 AM DEPUTY CHIEF MAGISTRATE Rx request in this encounter was identified as a duplicate request for same medication and sig. Pended medication(s) removed for this encounter. The remaining Rx request for this medication(s) will be processed (see other refill encounter). TY CHIEF MAGISTRATE documented in this encounter Plan of Treatment Not on file documented as of this encounter Visit Diagnoses Diagnosis Fibromyalgia Mylagia and myositis, unspecified documented in this encounter Additional Health Concerns Infection Onset Date Last Indicated Resolved Time COVID - 19 03/27/2024 03/27/2024 03/27/2024 12:4 2 PM CDT Assessment Noted Time PHQ-9 Depression Total Score: 5 01/26/20 10:00 AM CDT documented as of this encounter Care Teams Cnc Router Operator Relationship Specialty Start Date End Date Emilia Horner MD [address] [address] PCP - General Family Medicine 01/02/19 Amarui Raza MD Consulting Physician Rheumatology 08/05/14 Trip Higginbotham MD [address] [place] [address] Consulting Physician Allergy & Immunology 10/06/14 Ofelia Bundy PAC [address] [place] [address] Physician Inspector Precision Assembly Physician Inspector Precision Assembly 10/06/14 Sbaas Gold MD [address] [place] [address] Consulting Physician Gastroenterology 04/01/15 Andre Celis MD [address] [place] [address] Consulting Physician Urology 05/21/18 Gabriela Krishnamurthy MD [address] [facility] [place], [place] [address] Seat Builder Interventional Cardiology 10/14/24 Marcial Ceja MD [address] [facility] [place] [address] Consulting Physician Cardiovascular Disease - Cardiology 10/14/24 documented as of this encounter
--- OUTSIDE RECORDS SUMMARY | 2025-01-02 11:16 | XMS_ITS | Encounter Summary ---
Author Organization [facility] Address [address] [place] [address] Phone Care Team Providers Care Manufacturing Operations Manager Name Role Phone Amauri Raza MD Unavailable Trip Higginbotham MD Unavailable [phone] Ofelia Bundy PAC Unavailable Sabas Gold MD Unavailable [phone] nAdre Celis MD Unavailable Emilia Horner MD Primary Care Provider [phone] Gabriela Krishnamurthy MD Unavailable [phone] Marcial Ceja MD Unavailable Reason for Visit * Reason Onset Date Comments Pre-Operative Exam 07/31/2023 Encounter Details Date Type Department Care Team (Late st Contact Info) Description 07/31/2023 Telephone [facility] - Family Medicine - Normal [address] [place] [address] [place] [address] Emilia Horner MD [address] 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 Trip Rodriguez Diagnosis: right knee osteoarthritis Procedure Name: Right total knee arthroplasty Facility: [facility] Anesthesia: spinal Pre-op testing: CBC, CMP, Urinalysis and EKG Fax # for results & clearance: HANDISER SEASONAL documented in this encounter Plan of Treatment Not on file documented as of this encounter Visit Diagnoses Not on filedocumented in this encounter Additional Health Concerns Infection Onset Date Last Indicated Resolved Time COVID - 19 03/27/2024 03/27/2024 03/27/2024 12:4 2 PM CDT Assessment Noted Time PHQ-9 Depression Total Score: 5 01/26/20 23 10:00 AM CDT documented as of this encounter Care Teams Manufacturing Operations Manager Relationship Specialty Start Date End Date Emilia Horner MD [address] [facility] [address] [place] [address] PCP - General Family Medicine 01/02/19 Amauri Raza MD Consulting Physician Rheumatology 08/05/14 Trip Higginbotham MD [address] [place] [address] Consulting Physician Allergy & Immunology 10/06/14 Ofelia Bundy PAC [address] [place] [address] Physician Post Acute Care Nurse Physician Post Acute Care Nurse 10/06/14 Sabas Gold MD [address] [place] [address] Consulting Physician Gastroenterology 04/01/15 Andre Celis MD [address] [place] [address] Consulting Physician Urology 05/21/18 Gabriela Krishnamurthy MD [address] [facility] [place] [address] Pilot Interventional Cardiology 10/14/24 Marcial Ceja MD [address] [facility] [place], [place] [address] Consulting Physician Cardiovascular Disease - Cardiology 10/14/24 documented as of this encounter
--- OUTSIDE RECORDS SUMMARY | 2025-01-02 11:16 | XMS_ITS | Encounter Summary ---
Author Organization [facility] Address [address] [place] [address] Phone Care Team Providers Care Community Service Manager Name Role Phone Amauri Raza MD Unavailable Trip Higginbotham MD Unavailable [phone] Ofelia Bundy PAC Unavailable Sabas Gold MD Unavailable [phone] Andre Celis MD Unavailable Emilia Horner MD Primary Care Provider Gabriela Krishnamurthy MD Unavailable Marcial Ceja MD Unavailable Reason for Visit * Reason Comments Medication Refill Encounter Details Date Type Department Care Team (Late st Contact Info) Description 12/05/2022 Refill [facility] - Family Medicine - Normal [address] [facility] [place] [address] [place] [address] Emilia Horner MD [address] [facility] [place] [address] [place] [address] Medication Refill Social History Tobacco Use Types [...] on file Legal Sex Female 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 01/25/23 Requested Prescriptions Pending Prescriptions Disp Refills gabapentin (NEURONTIN) 300 MG Capsule [Pharmacy Med Name: GABAPENTIN 300MG CAPSULES] 180 Capsule Sig: TAKE 1 CAPSULE BY MOUTH TWICE DAILY Not Delegated - Anticonvulsants Excluding Benzodiazepines Protocol Failed - 12/08/2022 12:27 PM Failed - This refill cannot be delegated Passed - Visit with relevant provider in past 12 months or upcoming 90 days Recent Visits Date Type Provider Dept 01/14/22 Office Visit Emilia Horner MD [facility] [place] [place] Normal [place] 01/07/22 Office Visit Fred Johnson APRN, PARAMEDIC INSTRUCTOR [facility] Normal [place] 12/24/21 Office Visit Fred Johnson APRN, PARAMEDIC INSTRUCTOR [facility] Normal [place] Showing recent visits within past 365 days and meeting all other requirements Future Appointments Date Type Provider Dept 01/25/23 Appointment Emilia Horner MD [facility] [place] Normal [place] Showing future appointments within next 90 days and meeting all other requirements * Telephone Encounter - Meghan Tejeda - 12/08/2022 12:27 PM CDT Appointment made 01/25 * Telephone Encounter - Wilma Jones - 12/06/2022 1:18 PM CDT Patient's in [place] until first week in December and will call back to schedule documented in this encounter Plan of Treatment [...] documented as of this encounter Care Teams Community Service Manager Relationship Specialty Start Date End Date Emilia Horner MD [address] [address] PCP - General Family Medicine 01/02/19 Amauri Raza MD Consulting Physician Rheumatology 08/05/14 Trip Higginbotham MD [address] [place] [address] Consulting Physician Allergy & Immunology 10/06/14 Ofelia Bundy PAC [address] [place] [address] Physician Circus Supervisor Physician Circus Supervisor 10/06/14 Sabas Gold MD [address] [place] [address] Consulting Physician Gastroenterology 04/01/15 Andre Celis MD [address] [place] [address] Consulting Physician Urology 05/21/18 Gabriela Krishnamurthy MD [address] [place] [address] Military Professional Interventional Cardiology 10/14/24 Marcial Ceja MD [address] [facility] [address] [place], [place] [address] Consulting Physician Cardiovascular Disease - Cardiology 10/14/24 documented as of this encounter
--- OUTSIDE RECORDS SUMMARY | 2025-01-02 11:16 | XMS_ITS | Encounter Summary ---
Author Organization [facility] Address [address] [place] [address] Phone Care Team Providers Care Site Superintendent Name Role Phone Amauri Raza MD Unavailable Trip Higginbotham MD Unavailable [phone] Ofelia Bundy PAC Unavailable Sabas Gold MD Unavailable [phone] Andre Celis MD Unavailable Emilia Horner MD Primary Care Provider [phone] Gabriela Krishnamurthy MD Unavailable Marcial Ceja MD Unavailable Reason for Visit * Reason Comments Medication Refill Encounter Details Date Type Department Care Team (Late st Contact Info) Description 03/25/2023 Refill [facility] - Family Medicine - Normal [address] [facility] [place] [address] [place] [address] Noemi Forbes APRN, CLAIMS SUPPORT SPECIALIST [address] [facility] [place] [address] [place] [address] Medication Refill Social History Tobacco Use Types [...] Master's degree (e.g., MA, MS, Carolyn, MEd, INSULATION POWER UNIT TENDER, MALA) 01/25/2023 Sexually Active Control Partners Comments Not Currently Male Comments No Sex and Gender Information Value Date Recorded Sex Assigned at Not on file Legal Sex Female 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 ASSISTANT Gender Identity Not on file Sexual [...] documented as of this encounter Care Teams Site Superintendent Relationship Specialty Start Date End Date Emilia Horner MD [address] [address] PCP - General Family Medicine 01/02/19 Amauri Raza MD Consulting Physician Rheumatology 08/05/14 Trip Higginbotham MD [address] [place] [address] Consulting Physician Allergy & Immunology 10/06/14 Ofelia Bundy PAC [address] [place] [address] Physician Longwall Shearer Operator Physician Longwall Shearer Operator 10/06/14 Sabas Gold MD [address] [place] [address] Consulting Physician Gastroenterology 04/01/15 Andre Celis MD [address] [place] [address] Consulting Physician Urology 05/21/18 Gabriela Krishnamurthy MD [address] [facility] [place] [address] Wardrobe Attendant Interventional Cardiology 10/14/24 Marcial Ceja MD [address] [facility] [place], [place] [address] Consulting Physician Cardiovascular Disease - Cardiology 10/14/24 documented as of this encounter
--- OUTSIDE RECORDS SUMMARY | 2025-01-02 11:16 | XMS_ITS | Encounter Summary ---
Author Organization [facility] Address [address] [place] [address] Phone Care Team Providers Care Sole Skiver Name Role Phone Amauri Raza MD Unavailable Trip Higginbotham MD Unavailable [phone] Ofelia Bundy PAC Unavailable Sabas Gold MD Unavailable [phone] Andre Celis MD Unavailable Emilia Horner MD Primary Care Provider [phone] Gabriela Krishnamurthy MD Unavailable Marcial Ceja MD Unavailable Reason for Visit * Reason Onset Date Comments Medication Refill 03/11/2021 Gabapentin Medication Refill 03/12/2021 Gabapentin 300 MG Encounter Details Date Type Department Care Team (Late st Contact Info) Description 03/11/2021 Refill [facility] - Family Medicine - Normal [address] [facility] [place] [address] [place] [address] Emilia Horner MD [address] [facility] [place] [address] [place] [address] Medication Refill (Gabapentin ); Medication Refill (Gabapentin 300 MG) Social History Tobacco Use Types Packs/Day Years [...] on file 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 No / Unsure 03/09/2021 2:19 PM CDT documented as of this encounter Miscellaneous Notes * Telephone Encounter - Latesha Suresh APN, SAMANTHA - 03/16/2021 12:32 PM CDT (I am covering for Dr. Díaz who is away from the office today.) Medication refilled. * Telephone Encounter - Latesha Morgan - 03/15/2021 12:25 PM CDT Received call from patient requesting refill of patient's Gabapentin 300 MG. Last Refill: 09/05/20 #180/1 Last OV: 10/30/20 Next OV: 04/13/21 Medication pended for your review and approval documented in this encounter Plan of Treatment [...] Total Score: 1 07/17/20 20 9:00 AM CURB AND GUTTER LABORER documented as of this encounter Care Teams Sole Skiver Relationship Specialty Start Date End Date Emilia Horner MD [address] [address] PCP - General Family Medicine 01/02/19 Amauri Raza MD Consulting Physician Rheumatology 08/05/14 Trip Higginbotham MD [address] [place] [address] Consulting Physician Allergy & Immunology 10/06/14 Ofelia Bundy PAC [address] [place] [address] Physician Technical Consultant Physician Technical Consultant 10/06/14 Sabas Gold MD [address] [place] [address] Consulting Physician Gastroenterology 04/01/15 Andre Celis MD [address] [place] [address] Consulting Physician Urology 05/21/18 Gabriela Krishnamurthy MD [address] [place], [place] [address] Biology Faculty Member Interventional Cardiology 10/14/24 Marcial Ceja MD [address] [place], [place] [address] Consulting Physician Cardiovascular Disease - Cardiology 10/14/24 documented as of this encounter
--- OUTSIDE RECORDS SUMMARY | 2025-01-02 11:16 | XMS_ITS | Encounter Summary ---
Author Organization [facility] Address [address] [place] [address] Phone Care Team Providers Care Sand Caster Apprentice Name Role Phone Amauri Raza MD Unavailable Trip Higginbotham MD Unavailable [phone] Ofelia Bundy PAC Unavailable Sabas Gold MD Unavailable [phone] Andre Celis MD Unavailable Emilia Horner MD Primary Care Provider [phone] Gabriela Krishnamurthy MD Unavailable [phone] Marcial Ceja MD Unavailable Encounter Details Date Type Department Care Team (Late st Contact Info) Description 08/18/2020 Lab Requisition [facility] [address] [place] [address] Renetta Schofield APRN, CREATIVE SERVICES DIRECTOR [address] [place], [place] [address] Contact with and (suspected) exposure to other viral communicable diseases Social History Tobacco Use Types Packs/Day Years [...] on file Legal Sex Female 3:00 AM TUG MASTER Gender Identity Not on file Sexual Orientation Not on file COVID-19 Exposure Response Date Recorded In the last month, have you been in contact with someone who was confirmed or suspected to have Coronavirus / COVID-19? Yes 08/21/2020 10:03 AM TUG MASTER documented as of this encounter Plan of Treatment Not on file documented as of this encounter Procedures Procedure Name Priority Date/Time Associated Diagnosis Comments SARS-COV-2 BY MOLECULAR Routine 08/18/2020 9:55 AM TUG MASTER Contact with and (suspected) exposure to other viral communicable diseases documented in this encounter Results * SARS-COV-2 BY MOLECULAR (08/18/2020 9:55 AM TUG MASTER) SARSCOV2 NOT DETECTED (Referen ce Range for this test is Not Detected ) [facility] FAST DX 08/19/2020 3:34 AM TUG MASTER [facility] Comment:This test was perfor med by a PCR method. Other NASAL STRUCTURE / Unknown Non-Phlebotomy Collection / Unknown 08/18/2020 9:55 AM TUG MASTER 08/18/2020 10:38 AM TUG MASTER Narrative [facility] - 08/19/2020 3:34 AM TUG MASTER Authorized Fact Sheets about this test for providers and patients are available at: https://www.fda.gov/medical-devices/gomhamvkv-ozphtlxwrp-fzhjsgi-devices/emergen cy-us e-authorizations us Renetta Schofield APRN, CNP MICROBIOLOGY - GENERAL OR DERABLES Final Result [facility] [address] [place] [address], [place] documented in this encounter Visit Diagnoses Diagnosis Contact with and (suspected) exposure to other viral communicable diseases documented in this encounter Additional Health Concerns Infection Onset Date Last Indicated Resolved Time COVID - 19 08/18/2020 08/18/2020 09/07/2020 12:1 8 AM TUG MASTER COVID - 19 Comment:COVID swab is negative, removed COVID flag per ED MD order 10/02/2020 10/02/2020 10/02/2020 5:[address] COVID - 19 01/07/2022 01/07/2022 01/27/2022 12:1 6 AM CDT COVID - 19 Confirmed 02/28/2022 02/28/2022 022 12:16 AM CDT COVID - 19 03/27/2024 03/27/2024 03/27/2024 12:4 2 PM CDT Assessment Noted Time PHQ-9 Depression Total Score: 1 07/17/20 20 9:00 AM TUG MASTER documented as of this encounter Care Teams Sand Caster Apprentice Relationship Specialty Start Date End Date Emilia Horner MD [address] [address] PCP - General Family Medicine 01/02/19 Amauri Raza MD Consulting Physician Rheumatology 08/05/14 Trip Higginbotham MD [address] [place] [address] Consulting Physician Allergy & Immunology 10/06/14 Ofelia Bundy PAC [address] [place] [address] Physician Polymerization Engineer Physician Polymerization Engineer 10/06/14 Sabas Gold MD [address] [place] [address] Consulting Physician Gastroenterology 04/01/15 Andre Celis MD [address] [address] Consulting Physician Urology 05/21/18 Gabriela Krishnamurthy MD [address] [place] [address] Abseiling Instructor Interventional Cardiology 10/14/24 Marcial Ceja MD [address] [facility] [place], [place] [address] Consulting Physician Cardiovascular Disease - Cardiology 10/14/24 documented as of this encounter
--- OUTSIDE RECORDS SUMMARY | 2025-01-02 11:16 | XMS_ITS | Encounter Summary ---
Author Organization [facility] Address [address] [place] [address] Phone Care Team Providers Care Shoeblack Name Role Phone Amauri Raza MD Unavailable Trip Higginbotham MD Unavailable [phone] Ofelia Bundy PAC Unavailable Sabas Gold MD Unavailable [phone] Andre Celis MD Unavailable Emilia Horner MD Primary Care Provider Gabriela Krishnamurthy MD Unavailable Marcial Ceja MD Unavailable Reason for Visit * Reason Comments Medication Refill Encounter Details Date Type Department Care Team (Late st Contact Info) Description 09/06/2021 Refill [facility] - Family Medicine - Normal [address] [facility] [place] [address] [place] [address] Emilia Horner MD [address] [facility] [address] [address] [place] [address] Medication Refill Social History Tobacco Use Types [...] on file Legal Sex Female 3:00 AM MAPLE SYRUP MAKER Gender Identity Not on file Sexual Orientation Not on file COVID-19 Exposure Response Date Recorded In the last month, have you been in contact with someone who was confirmed or suspected to have Coronavirus / COVID-19? No / Unsure 09/08/2021 10:55 AM MAPLE SYRUP MAKER documented as of this encounter Miscellaneous Notes * Telephone Encounter - Emilia Díaz MD - 09/12/2021 8:43 PM MAPLE SYRUP MAKER approved E SYRUP MAKER * Telephone Encounter - Leigh Ann Macias RN - 09/09/2021 8:53 AM CST Requested Prescriptions Pending Prescriptions Disp Refills ??? fenofibrate 160 MG Tablet [Pharmacy Med Name: FENOFIBRATE 160MG TABLETS] 90 Tablet 1 Sig: TAKE 1 TABLET BY MOUTH DAILY Last refilled date: 03/11/2021 #90/1R STEF: 04/13/2021 NOV: 09/15/2021 (pre-op) Refill pended, please sign/change or refuse as appropriate E SYRUP MAKER documented in this encounter Plan of Treatment [...] documented as of this encounter Care Teams Shoeblack Relationship Specialty Start Date End Date Emilia Horner MD [address] [address] PCP - General Family Medicine 01/02/19 Amauri Raza MD Consulting Physician Rheumatology 08/05/14 Trip Higginbotham MD [address] [place], [place] [address] Consulting Physician Allergy & Immunology 10/06/14 Ofelia Bundy PAC [address] [place] [address] Physician Melt Room Operator Physician Melt Room Operator 10/06/14 Sabas Gold MD [address] [place] [address] Consulting Physician Gastroenterology 04/01/15 Andre Celis MD [address] [place] [address] Consulting Physician Urology 05/21/18 Gabriela Krishnamurthy MD [address] [place] [address] Veneer Stock Grader Interventional Cardiology 10/14/24 Marcial Ceja MD [address] [place], [place] [address] Consulting Physician Cardiovascular Disease - Cardiology 10/14/24 documented as of this encounter
--- OUTSIDE RECORDS SUMMARY | 2025-01-02 11:16 | XMS_ITS | Encounter Summary ---
Author Organization [facility] Address [address] [place] [address] Phone Care Team Providers Care Shift Mgr Name Role Phone Amauri Raza MD Unavailable [phone] Trip Higginbotham MD Unavailable [phone] Ofelia Bundy PAC Unavailable Sabas Gold MD Unavailable [phone] Andre Celis MD Unavailable Emilia Horner MD Primary Care Provider Gabriela Krishnamurthy MD Unavailable Marcial Ceja MD Unavailable Reason for Visit * Reason Comments Medication Refill Encounter Details Date Type Department Care Team (Late st Contact Info) Description 11/24/2021 Refill [facility] - Gastroenterology - [place] [address] [place] [address] Sabas Gold MD [address] [place] [address] Medication Refill Social History Tobacco [...] on file 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 No / Unsure 11/26/2021 10:47 AM CDT documented as of this encounter Plan [...] documented as of this encounter Care Teams Shift Mgr Relationship Specialty Start Date End Date Emilia Horner MD [address] [address] PCP - General Family Medicine 01/02/19 Amauri Raza MD Consulting Physician Rheumatology 08/05/14 Trip Higginbotham MD [address] [place] [address] Consulting Physician Allergy & Immunology 10/06/14 Ofelia Bundy PAC [address] [place] [address] Physician Spare Hand Physician Spare Hand 10/06/14 Sabas Gold MD [address] [place] [address] Consulting Physician Gastroenterology 04/01/15 Andre Celis MD [address] [place] [address] Consulting Physician Urology 05/21/18 Gabriela Krishnamurthy MD [address] [facility] [place] [address] Fitness Worker Interventional Cardiology 10/14/24 Marcial Ceja MD [address] [facility] [place] [address] Consulting Physician Cardiovascular Disease - Cardiology 10/14/24 documented as of this encounter
--- OUTSIDE RECORDS SUMMARY | 2025-01-02 11:16 | XMS_ITS | Encounter Summary ---
Author Organization [facility] Address [address] [place] [address] Phone Care Team Providers Care Material Flow Engineer Name Role Phone Amauri Raza MD Unavailable Trip Higginbotham MD Unavailable [phone] Ofelia Bundy PAC Unavailable Sabas Gold MD Unavailable [phone] Andre Celis MD Unavailable Emilia Horner MD Primary Care Provider Gabriela Krishnamurthy MD Unavailable Marcial Ceja MD Unavailable Encounter Details Date Type Department Care Team (Late st Contact Info) Description 09/06/2022 Telephone [facility] - Family Medicine - Normal [address] [facility] [address] [place], [place] [address] Emilia Horner MD [address] [facility] [address] [place], [place] [address] Social History Tobacco Use Types Packs/Day Years [...] on file Legal Sex Female 3:00 AM SAMPLE BOX MAKER Gender Identity Not on file Sexual Orientation Not on file documented as of this encounter Miscellaneous Notes * Telephone Encounter - Emilia Horner MD - 09/06/2022 11:06 AM SAMPLE BOX MAKER Benign mammogram. Continue recommended screening. LE BOX MAKER * Telephone Encounter - Thu Butts - 09/06/2022 10:35 AM CST Faxed received from with mammo results and is placed in Dr. Horner inbox for review. LE BOX MAKER documented in this encounter Plan of [...] documented as of this encounter Care Teams Material Flow Engineer Relationship Specialty Start Date End Date Emilia Horner MD [address] [place] [address] PCP - General Family Medicine 01/02/19 Amauri Raza MD Consulting Physician Rheumatology 08/05/14 Trip Higginbotham MD [address] [place] [address] Consulting Physician Allergy & Immunology 10/06/14 Ofelia Bundy PAC [address] [place] [address] Physician Wedger Physician Wedger 10/06/14 Sabas Gold MD [address] [place] [address] Consulting Physician Gastroenterology 04/01/15 Andre Celis MD [address] [place] [address] Consulting Physician Urology 05/21/18 Gabriela Krishnamurthy MD [address] [facility] [address] [place], [place] [address] Road Roller Operator Hot Mix Interventional Cardiology 10/14/24 Marcial Ceja MD [address] [facility] [place], [place] [address] Consulting Physician Cardiovascular Disease - Cardiology 10/14/24 documented as of this encounter
[2025-01-02 11:28] LABS: Basophils Percent Auto 0.8 % (0.2-1.2); Eosinophils Absolute Auto 0.1 K/mm3 (0-0.3); Eosinophils Percent Auto 2.1 % (0-4.4); Hematocrit 40.5 % (37.0-47.0); Hemoglobin 12.7 g/dL (12.0-15.0); Immature Granulocyte Absolute 0.09 K/mm3 (0.00-0.031); Immature Granulocyte Percent A 1.8 % (0-0.5); Lymphocytes Absolute Auto 0.81 K/mm3 (0.9-3.2); Lymphocytes Percent Auto 15.8 % (18.3-44.2); Mean Corpuscular HGB Conc 31.4 g/dl (32-36); Mean Corpuscular Hemoglobin 29.3 pg (26-34); Mean Corpuscular Volume 93.3 fl (80-100); Mean Platelet Volume 9.2 fl (7.4-10.4); Monocytes Absolute Auto 0.4 K/mm3 (0.1-0.6); Neutrophils Absolute Auto 3.7 K/mm3 (1.3-6.7); Neutrophils Percent Auto 72.5 % (45.5-73.1); Platelet Count Result 230 k/mm3 (150-375); Red Blood Count 4.34 M/mm3 (4.2-5.4); Red Cell Distribution Width 12.9 % (11.5-14.5); White Blood Count 5.1 K/mm3 (4.5-10.0)
[2025-01-02 12:02] LABS: Iron 59 ug/dL (37-170)
[2025-01-02 12:08] LABS: Alanine Aminotransferase 39 U/L (6-35); Albumin Level 3.8 g/dL (3.5-5.1); Alkaline Phosphatase 53 U/L (38-126); Anion Gap 5 mmol/L (4-12); Aspartate Amino Transferase 50 U/L (14-36); Bilirubin,Total 0.3 mg/dL (0.2-1.3); Blood Urea Nitrogen 19 mg/dL (7-17); Calcium 8.8 mg/dL (8.4-10.2); Carbon Dioxide 29 mmol/L (22-30); Chloride 107 mmol/L (98-107); Estimated Glomerular Filt Rate > 60; Glucose 149 mg/dL (65-110); Lactate Dehydrogenase 264 U/L (120-246); Potassium 3.6 mmol/L (3.4-5.0); Sodium 141 mmol/L (137-145)
[2025-01-02 12:11] LABS: Percent Iron Saturation 20 % (20-50)
[2025-01-02 13:20] LABS: Folic Acid 7.2 ng/mL (2.76->20)
[2025-01-06 10:57] LABS: Soluble Transferrin Receptor 0.95 mg/L (0.76-1.76)
[2025-01-06 11:27] LABS: Methylmalonic Acid 149 nmol/L (69-390)
== END 2025-01-02 11:12 | disposition home or self-care (01) ==
LOC: ANHLAB 11:14
PROVIDERS: PCP Family Medicine; Visit Provider Internal Medicine Hematology & Oncology
DX: D64.9 Anemia, unspecified (principal)
CPT/HCPCS: 36415; 80053; 82607; 82728; 82746; 83540; 83550; 83615; 83921; 84238; 85025

== ENCOUNTER 2025-01-27 12:09 | Outpatient (CLI) | payer MEDICARE, SELFPAY ==
--- NOTE | ~2025-01-27 | XR_ITS ---
AP and lateral views of the left hip Clinical history: Pain Findings: No acute fracture or dislocation is seen. Osseous alignment is anatomic. Left hip joint is intact. Soft tissues are unremarkable. Impression: No significant abnormality is seen. Reviewed, dictated and finalized at location . Impression: No significant abnormality is seen.
== END 2025-01-27 12:10 | disposition home or self-care (01) ==
LOC: GOSHIMG 12:10
PROVIDERS: PCP Family Medicine; Visit Provider Family Medicine
DX: M25.552 Pain in left hip (principal)
CPT/HCPCS: 73502

== ENCOUNTER 2025-04-01 08:29 | Outpatient (CLI) | payer MEDICARE, SELFPAY ==
--- OUTSIDE RECORDS SUMMARY | 2024-10-31 05:15 | XMS_ITS ---
Author Organization [facility] Address [address] [place], [place] [id number] Care Team Providers Care Dispatcher Service Chief Name Role Phone Emilia Hernandez Primary Care Provider Unavailable Andre Celis Unavailable [phone] Tianna Mckeon Unavailable [phone] Encounters Encounter Location Date Provider Diagnosis [facility] [address] [place] [id number] 10/31/2024 Tianna Mckeon Plan Of Treatment No Information Progress Notes * Rebekah MERCADODOB:[birth year] (69 yo F)Acc No.[id number]:10/31/2024 Progress Notes Patient: Rebekah WOO Provider: Thaddeus Mckeon NP :1955 A ge:69 Y S ex:Female Date:10/31/2024 Address:[address] [facility], [place], [id number] Pcp:Emilia Travis Subjective: * Chief Complaints: * * Medical History: Objective: * Vitals: Assessment: Plan: * Treatment: * Images: * Electronic signature of Cash Mckeon , N.PMariela on 04/01/2025 at 08:52 AM CDT Sign off status: Pending * Provider: Thaddeus Mckeon NP Date: 0 10/31/2024 Generated for Kailyn em/Miguelangel/Ramonaitting on: 0 04/01/2025 08:52 AM CDT
--- OUTSIDE RECORDS SUMMARY | 2025-04-01 08:51 | XMS_ITS | Encounter Summary ---
Author Organization [facility] Address [address] [place] [address] Phone Care Team Providers Care Air Conditioning Technician Name Role Phone Amauri Raza MD Unavailable [phone] Trip Higginbotham MD Unavailable Ofelia Bundy PAC Unavailable [phone] Sabas Gold MD Unavailable [phone] Andre Celis MD Unavailable Emilia Horner MD Primary Care Provider Gabriela Krishnamurthy MD Unavailable Marcial Ceja MD Unavailable Reason for Visit * Reason Comments Medication Refill Encounter Details Date Type Department Care Team (Late st Contact Info) Description 10/05/2021 Refill [facility] - Gastroenterology - [place] [address] [place] [address] Sabas Gold MD [address] [place] [address] Medication Refill Social History Tobacco [...] on file Legal Sex Female 3:00 AM REVERSER Gender Identity Not on file Sexual Orientation Not on file COVID-19 Exposure Response Date Recorded In the last month, have you been in contact with someone who was confirmed or suspected to have Coronavirus / COVID-19? No / Unsure 09/20/2021 9:33 AM REVERSER documented as of this encounter Plan of [...] documented as of this encounter Care Teams Air Conditioning Technician Relationship Specialty Start Date End Date Emilia Horner MD [address] [place] [address] PCP - General Family Medicine 01/02/19 Amauri Raza MD Consulting Physician Rheumatology 08/05/14 Trip Higginbotham MD [address] [place] [address] Consulting Physician Allergy & Immunology 10/06/14 Ofelia Bundy PAC [address] [place] [address] Physician Catering Manager Physician Catering Manager 10/06/14 Sabas Gold MD [address] [place] [address] Consulting Physician Gastroenterology 04/01/15 Andre Celis MD [address] [place] [address] Consulting Physician Urology 05/21/18 Gabriela Krishnamurthy MD [address] [place], [place] [address] Tester Electronic Scale Interventional Cardiology 10/14/24 Marcial Ceja MD [address] [place], [place] [address] Consulting Physician Cardiovascular Disease - Cardiology 10/14/24 documented as of this encounter
--- OUTSIDE RECORDS SUMMARY | 2025-04-01 08:51 | XMS_ITS | Encounter Summary ---
Author Organization [facility] Address [address] [place] [address] Phone Care Team Providers Care Abattoir Supervisor Name Role Phone Amauri Raza MD Unavailable Trip Higginbotham MD Unavailable [phone] Ofelia Bundy PAC Unavailable Sabas Gold MD Unavailable [phone] Andre Celis MD Unavailable Emilia Horner MD Primary Care Provider Gabriela Krishnamurthy MD Unavailable Marcial Ceja MD Unavailable Reason for Visit * Reason Comments Medication Refill Encounter Details Date Type Department Care Team (Late st Contact Info) Description 08/06/2020 Refill [facility] - Family Medicine - [place] [address] [facility] [address] [place] [address] Latesha Suresh APRN, SALES & SERVICE ASSOCIATE [address] [facility] [address] [place] [address] Medication Refill Social History Tobacco Use Types [...] on file Legal Sex Female 3:00 AM COACH BUILDER Gender Identity Not on file Sexual Orientation Not on file COVID-19 Exposure Response Date Recorded In the last month, have you been in contact with someone who was confirmed or suspected to have Coronavirus / COVID-19? No / Unsure 07/17/2020 8:11 AM COACH BUILDER documented as of this encounter Miscellaneous Notes * Telephone Encounter - Latesha Suresh APN, CNP - 08/11/2020 11:04 AM CST Medication refilled. H BUILDER * Telephone Encounter - Yamila Hooper - [...] right middle finger, subsequent encounter [facility] Family Medicine - Normal Latesha Suresh APN, CNP 7 months ago Preop examination [facility] Family Medicine - Emilia Kay MD 7 months ago Paronychia of finger, right [facility] Family Medicine - Noemi Brady APN, SALES & SERVICE ASSOCIATE 10 months ago Other iron deficiency anemia [facility] Family Medicine - Emilia Kay MD Upcoming Appointments PLANT OPERATOR/SHIFT SUPERVISOR - Recent and Past Visits Recent Visits Date Type Provider Dept 07/17/20 Office Visit Emilia Díaz MD [facility] [place] 02/13/20 Office Visit Latesha Suresh APN, SALES & SERVICE ASSOCIATE [facility] [place] 01/13/20 Office Visit Emilia Díaz MD [facility] [place] 12/27/19 Office Visit Noemi Forbes APN, SALES & SERVICE ASSOCIATE [facility] [place] 09/20/19 Office Visit Emilia Díaz MD [facility] [place] 08/28/19 Office Visit Leigh Ann Gaona APN, SALES & SERVICE ASSOCIATE [facility] [place] 05/24/19 Office Visit Emilia Díaz MD [facility] [place] Showing recent visits within past 460 days with a meds authorizing provider and meeting all other requirements Future Appointments No visits were found meeting these conditions. Showing future appointments within next 90 days with a meds authorizing provider and meeting all other requirements H BUILDER documented in this encounter Plan of Treatment Not on file documented as of this encounter Visit Diagnoses Not on filedocumented in this encounter Additional Health Concerns Infection Onset Date Last Indicated Resolved Time COVID - 19 08/18/2020 08/18/2020 09/07/2020 12:1 8 AM COACH BUILDER COVID - 19 Comment:COVID swab is negative, removed COVID flag per ED MD order 10/02/2020 10/02/2020 10/02/2020 5:[address] COVID - 19 01/07/2022 01/07/2022 01/27/2022 12:1 6 AM CDT COVID - 19 Confirmed 02/28/2022 02/28/2022 022 12:16 AM CDT COVID - 19 03/27/2024 03/27/2024 03/27/2024 12:4 2 PM CDT Assessment Noted Time PHQ-9 Depression Total Score: 1 07/17/20 20 9:00 AM COACH BUILDER documented as of this encounter Care Teams Abattoir Supervisor Relationship Specialty Start Date End Date Emilia Horner MD [address] [address] PCP - General Family Medicine 01/02/19 Amauri Raza MD Consulting Physician Rheumatology 08/05/14 Trip Higginbotham MD [address] [place] [address] Consulting Physician Allergy & Immunology 10/06/14 Ofelia Bundy PAC [address] [place] [address] Physician Drip Molder Physician Drip Molder 10/06/14 Sabas Gold MD [address] [place] [address] Consulting Physician Gastroenterology 04/01/15 Andre Celis MD [address] [place] [address] Consulting Physician Urology 05/21/18 Gabriela Krishnamurthy MD [address] [place] [address] Care Team Coordinator Scheduler Interventional Cardiology 10/14/24 Marcial Ceja MD [address] [place] [address] Consulting Physician Cardiovascular Disease - Cardiology 10/14/24 documented as of this encounter
--- OUTSIDE RECORDS SUMMARY | 2025-04-01 08:51 | XMS_ITS | Encounter Summary ---
Author Organization [facility] Address [address] [place] [address] Phone Care Team Providers Care Overhead Garage Door Hanger Name Role Phone Amauri Raza MD Unavailable Trip Higginbotham MD Unavailable [phone] Ofelia Bundy PAC Unavailable Sabas Gold MD Unavailable [phone] Andre Celis MD Unavailable Emilia Horner MD Primary Care Provider Gabriela Krishnamurthy MD Unavailable Marcial Ceja MD Unavailable Reason for Visit * Reason Comments Medication Refill Encounter Details Date Type Department Care Team (Late st Contact Info) Description 10/06/2021 Refill [facility] - Family Medicine - [place] [address] [facility] [address] [place] [address] Emilia Horner MD [address] [facility] [address] [place] [address] Medication Refill Social History Tobacco Use Types [...] on file Legal Sex Female 3:00 AM WOOL SHEARER Gender Identity Not on file Sexual Orientation Not on file COVID-19 Exposure Response Date Recorded In the last month, have you been in contact with someone who was confirmed or suspected to have Coronavirus / COVID-19? No / Unsure 09/20/2021 9:33 AM WOOL SHEARER documented as of this encounter Miscellaneous Notes * Telephone Encounter - Latesha Suresh APRN, CNP - 10/08/2021 10:40 AM CST (I am covering for Dr. Díaz who is away from the office today.) Medication refilled. SHEARER * Telephone Encounter - Yamila Elliott RN - 10/08/2021 10:06 AM WOOL SHEARER Medication failed the protocol, cannot be delegated, [...] Dept 09/20/21 Office Visit Fred Johnson APRN, TOOL DRAWING CHECKER [facility] [place] 04/13/21 Office Visit Emilia Díaz MD [facility] [place] 10/30/20 Office Visit Emilia Díaz MD [facility] [place] Showing recent visits within past 365 days and meeting all other requirements Future Appointments Date Type Provider Dept 10/13/21 Appointment Emilia Díaz MD [facility] [place] Showing future appointments within next 90 days and meeting all other requirements SHEARER documented in this encounter Plan of Treatment [...] documented as of this encounter Care Teams Overhead Garage Door Hanger Relationship Specialty Start Date End Date Emilia Horner MD [address] [place] [address] PCP - General Family Medicine 01/02/19 Amauri Raza MD Consulting Physician Rheumatology 08/05/14 Trip Higginbotham MD [address] [place] [address] Consulting Physician Allergy & Immunology 10/06/14 Ofelia Bundy PAC [address] [place] [address] Physician Specialist Physician Physician Specialist Physician 10/06/14 Sabas Gold MD [address] [facility] [place] [address] Consulting Physician Gastroenterology 04/01/15 Andre Celis MD [address] [place] [address] Consulting Physician Urology 05/21/18 Gabriela Krishnamurthy MD [address] [facility] [place], [place] [address] Finished Carpet Inspector Interventional Cardiology 10/14/24 Marcial Ceja MD [address] [facility] [place], [place] [address] Consulting Physician Cardiovascular Disease - Cardiology 10/14/24 documented as of this encounter
--- OUTSIDE RECORDS SUMMARY | 2025-04-01 08:51 | XMS_ITS | Encounter Summary ---
Author Organization [facility] Address [address] [place] [address] Phone Care Team Providers Care Estate Administrator Name Role Phone Amauri Raza MD Unavailable [phone] Trip Higginbotham MD Unavailable [phone] Ofelia Bundy PAC Unavailable Sabas Gold MD Unavailable [phone] Andre Celis MD Unavailable Emilia Horner MD Primary Care Provider [phone] Gabriela Krishnamurthy MD Unavailable Marcial Ceja MD Unavailable Reason for Visit * Reason Comments Medication Refill Encounter Details Date Type Department Care Team (Late st Contact Info) Description 10/02/2021 Refill [facility] - Gastroenterology - [place] [address] [place] [address] Tigre Urrutia PAC [address] [place] [address] Medication Refill Social History Tobacco Use Types [...] on file Legal Sex Female 3:00 AM VACUUM EVAPORATION OPERATOR Gender Identity Not on file Sexual Orientation Not on file COVID-19 Exposure Response Date Recorded In the last month, have you been in contact with someone who was confirmed or suspected to have Coronavirus / COVID-19? No / Unsure 09/20/2021 9:33 AM VACUUM EVAPORATION OPERATOR documented as of this encounter Miscellaneous Notes * Telephone Encounter - Miguelina Cornejo LPN - 10/04/2021 8:42 AM CST Wrong provider UM EVAPORATION OPERATOR documented in this encounter Plan of [...] documented as of this encounter Care Teams Estate Administrator Relationship Specialty Start Date End Date Emilia Horner MD [address] [address] PCP - General Family Medicine 01/02/19 Amauri Raza MD Consulting Physician Rheumatology 08/05/14 Trip Higginbotham MD [address] [place] [address] Consulting Physician Allergy & Immunology 10/06/14 Ofelia Bundy PAC [address] [place] [address] Physician Bmw Service Technician Physician Bmw Service Technician 10/06/14 Sabas Gold MD [address] [place] [address] Consulting Physician Gastroenterology 04/01/15 Andre Celis MD [address] [place] [facility] [address] Consulting Physician Urology 05/21/18 Gabriela Krishnamurthy MD [address] [facility] [address] [facility] [address] Composing Machine Operator/Tender Interventional Cardiology 10/14/24 Marcial Ceja MD [address] [facility] [address] Consulting Physician Cardiovascular Disease - Cardiology 10/14/24 documented as of this encounter
--- OUTSIDE RECORDS SUMMARY | 2025-04-01 08:52 | XMS_ITS | Clinical Summary ---
Author Organization [facility] Nica Diamond Address [address] [place] [address] Care Team Providers Care Rewinder Name Role Phone StaciebunnyPam nugentna Millicent Primary Care Provider [phone] Allergies Active Allergy Reactions Criticality Noted Date [...] daily. Active fluticasone propionate (FLONASE) 50 mcg/spray [place], Suspension nasal inhaler Administer 1-2 Sprays in [...] Encounters Date Type Department Care Team Description 02/26/2025 External Device Data [facility] ABSTRACTION Provider, Abstract 02/25/2025 External Device Data [facility] ABSTRACTION Provider, Abstract 01/28/2025 External Device Data [facility] ABSTRACTION Provider, Abstract 01/16/2025 4:30 PM CDT Telephone Check Up [facility] Oncology and Hematology - [place] [address] [place] [address] Kory Franco MD Chronic anemia (Primary Dx) 01/10/2025 Orders Only [facility] Oncology and Hematology - [place] [address] [place] [address] Kory Franco MD 01/07/2025 External Device Data ST[place] ABSTRACTION Provider, Abstract 01/07/2025 External Device Data [facility] ABSTRACTION Provider, Abstract 01/07/2025 External Device Data STL ABSTRACTION Provider, Abstract 01/07/2025 Orders Only [facility] Oncology and Hematology - [place] [address] [place] [address] Kory Franco MD 01/02/2025 10:30 AM CDT Office Visit [facility] Oncology and Hematology - [place] [address] [place] [address] Kory Franco MD Chronic anemia (Primary Dx) [...] on file Legal Sex Female 3:38 PM GRINDER SET UP OPERATOR UNIVERSAL Gender Identity Not on file Sexual Orientation [...] 10:44 AM CDT Height 170.2 cm (5' 7) 01/02/2025 10:44 AM CDT Body Mass Index 32.58 01/02/2025 10:44 AM CDT Plan of Treatment Upcoming Encounters Date Type Department Care Team (Late st Contact Info) Description 07/24/2025 11:45 AM GRINDER SET UP OPERATOR UNIVERSAL Office Visit [facility] Oncology and Hematology - [place] [address] [facility] [address] [place] [address] Kory Franco MD [address] [facility] [address] [place] [address] Health Maintenance Due Date Last Done Comments FIT-DNA Q 3 years 1998 FIT/FOBT Q 1 year 1998 Flex Sig/CT Colonography Q 5 years 1998 ZOSTER VACCINE (1 of 2) 2003 RSV VACCINE (60+ or ) (1 - Risk 60-74 years 1-dose series) 2013 BREAST CANCER SCREENING 09/05/2023 09/05/19 23, 08/03/2020, 06/28/2019, Additional history exists DTAP/TDAP/TD VACCINES (2 - T d or Tdap) 12/28/2023 12/27/2013 COLORECTAL SCREENING 02/09/2025 02/09/2015 Colorectal Cancer Screening 02/09/2025 INFLUENZA VACCINE (#1) 2025 , 08/28/2023, 06/16/2021, Additional history exists OSTEOPOROSIS SCREENING 08/03/2025 08/03/2020, 2013 PNEUMOCOCCAL VACCINE 50+ YEARS Completed 07/17/2020 , 05/24/2019 Procedures Procedure Name Priority Date/Time Associated Diagnosis Comments COMPREHENSIVE METABOLIC PANEL Routine 01/02/2025 5:08 PM CDT METHYLMALONIC ACID Routine 01/02/2025 12 :04 PM CDT from Last 3 Months Results * COMPREHENSIVE METABOLIC PANEL (01/02/2025 5:08 PM CDT) Blood us Kory Franco MD CHEMISTRY ORDERABLES Final Resu lt * METHYLMALONIC ACID (01/02/2025 12:04 PM CDT) Blood us Kory Franco MD CHEMISTRY ORDERABLES Final Resu lt from Last 3 Months Insurance [facility] Care Teams Rewinder Relationship Specialty Start Date End Date Ani Vitale DO [facility] Formerly Named [facility] [address] [place] [address] PCP - General Family Practice 01/02/25
--- OUTSIDE RECORDS SUMMARY | 2025-04-01 08:52 | XMS_ITS | Encounter Summary ---
Author Organization [facility] Address [address] [place] [address] Phone Care Team Providers Care Brand Planner Name Role Phone Amauri Raza MD Unavailable Trip Higginbotham MD Unavailable [phone] Ofelia Bundy PAC Unavailable Sabas Gold MD Unavailable [phone] Anrde Celis MD Unavailable Emilia Horner MD Primary Care Provider Gabriela Krishnamurthy MD Unavailable Marcial Ceja MD Unavailable Reason for Visit * Reason Comments Medication Refill Encounter Details Date Type Department Care Team (Late st Contact Info) Description 12/23/2022 Refill [facility] - Family Medicine - Normal [address] [facility] [address] [place] [address] Emilia Horner MD [address] [facility] [address] [place] [address] Medication Refill Social History Tobacco Use Types [...] on file Legal Sex Female 3:00 AM AGENCY SALES MANAGEMENT ASSISTANT Gender Identity Not on file Sexual [...] Dept Phone 01/25/2023 9:15 AM Emilia Horner [facility] - Family Medicine - Normal [phone] Requested Prescriptions Pending Prescriptions Disp Refills ??? [...] Dept 01/14/22 Office Visit Emilia Horner MD [facility] [place] 01/07/22 Office Visit Fred Johnson, FURNACE ATTENDANT, RENAL CASE MANAGER [facility] [place] Showing recent visits within past 365 days and meeting all other requirements Future Appointments Date Type Provider Dept 01/25/23 Appointment Emilia Horner MD [facility] [place] Showing future appointments within [...] documented as of this encounter Care Teams Brand Planner Relationship Specialty Start Date End Date Emilia Horner MD [address] [address] PCP - General Family Medicine 01/02/19 Amauri Raza MD Consulting Physician Rheumatology 08/05/14 Trip Higginbotham MD [address] [place] [address] Consulting Physician Allergy & Immunology 10/06/14 Ofelia Bundy PAC [address] [place] [address] Physician Cheese Pancake Roller Physician Cheese Pancake Roller 10/06/14 Sabas Gold MD [address] [place] [address] Consulting Physician Gastroenterology 04/01/15 Andre Celis MD [address] [place] [address] Consulting Physician Urology 05/21/18 Gabriela Krishnamurthy MD [address] [place], [place] [address] Er Rn Interventional Cardiology 10/14/24 Marcial Ceja MD [address] [place], [place] [address] Consulting Physician Cardiovascular Disease - Cardiology 10/14/24 documented as of this encounter
--- OUTSIDE RECORDS SUMMARY | 2025-04-01 08:52 | XMS_ITS | Encounter Summary ---
Author Organization [facility] Address [address] [place] [address] Phone Care Team Providers Care Semiconductor Packages Tester Name Role Phone Amauri Raza MD Unavailable Trip Higginbotham MD Unavailable [phone] Ofelia Bundy PAC Unavailable Sabas Gold MD Unavailable [phone] Andre Celis MD Unavailable Emilia Horner MD Primary Care Provider Gabriela Krishnamurthy MD Unavailable Marcial Ceja MD Unavailable Reason for Visit * Reason Comments Medication Refill amitriptyline Encounter Details Date Type Department Care Team (Late st Contact Info) Description 10/10/2020 Refill [facility] - Family Medicine - Normal [address] [facility] [address] [place] [address] Emilia Horner MD [address] [facility] [address] [place] [address] Medication Refill (amitriptyline) Social History Tobacco Use [...] on file Legal Sex Female 3:00 AM SALES AND MARKETING PROFESSIONAL Gender Identity Not on file Sexual Orientation Not on file COVID-19 Exposure Response Date Recorded In the last month, have you been in contact with someone who was confirmed or suspected to have Coronavirus / COVID-19? No / Unsure 10/02/2020 2:19 AM SALES AND MARKETING PROFESSIONAL documented as of this encounter Miscellaneous Notes * Telephone Encounter - Emilia Díaz MD - 10/10/2020 10:50 PM SALES AND MARKETING PROFESSIONAL approved S AND MARKETING PROFESSIONAL * Telephone Encounter - Elizabeth Meza - 10/10/2020 5:23 PM CST Requested Prescriptions Pending Prescriptions Disp Refills ??? amitriptyline (ELAVIL) 50 MG Tablet [Pharmacy Med Name: AMITRIPTYLINE 50MG TABLETS] 90 Tablet 0 Sig: TAKE 1 TABLET BY MOUTH EVERY NIGHT Last Refilled - 07/17/2020, #90/0 Last Appt - 07/17/2020 Future Appt - None Labs - n/a S AND MARKETING PROFESSIONAL documented in this encounter Plan of Treatment [...] Total Score: 1 07/17/20 20 9:00 AM SALES AND MARKETING PROFESSIONAL documented as of this encounter Care Teams Semiconductor Packages Tester Relationship Specialty Start Date End Date Emilia Horner MD [address] [address] PCP - General Family Medicine 01/02/19 Amauri Raza MD Consulting Physician Rheumatology 08/05/14 Trip Higginbotham MD [address] [place], [place] [address] Consulting Physician Allergy & Immunology 10/06/14 Ofelia Bundy PAC [address] [place] [address] Physician Decorating Supervisor Physician Decorating Supervisor 10/06/14 Sabas Gold MD [address] [place] [address] Consulting Physician Gastroenterology 04/01/15 Andre Celis MD [address] [place] [address] Consulting Physician Urology 05/21/18 Gabriela Krishnamurthy MD [address] [place], [place] [address] Financial Institution President Interventional Cardiology 10/14/24 Marcial Ceja MD [address] [place] [address] Consulting Physician Cardiovascular Disease - Cardiology 10/14/24 documented as of this encounter
--- OUTSIDE RECORDS SUMMARY | 2025-04-01 08:52 | XMS_ITS | Encounter Summary ---
Author Organization [facility] Address [address] [place] [address] Phone Care Team Providers Care Commercial Real Estate Agent Name Role Phone Amauri Raza MD Unavailable Trip Higginbotham MD Unavailable [phone] Oeflia Bundy PAC Unavailable Sabas Gold MD Unavailable [phone] Andre Celis MD Unavailable Emilia Horner MD Primary Care Provider Gabriela Krishnamurthy MD Unavailable Marcial Ceja MD Unavailable Encounter Details Date Type Department Care Team (Late st Contact Info) Description 08/18/2020 Lab Requisition [facility] [address] [place] [address] Renetta Schofield APRN, DIRECTOR DESIGN [address] [place], [place] [address] Contact with and (suspected) exposure to other [...] on file Legal Sex Female 3:00 AM SUPERVISOR BLAST FURNACE Gender Identity Not on file Sexual Orientation Not on file COVID-19 Exposure Response Date Recorded In the last month, have you been in contact with someone who was confirmed or suspected to have Coronavirus / COVID-19? Yes 08/21/2020 10:03 AM SUPERVISOR BLAST FURNACE documented as of this encounter Plan of Treatment Not on file documented as of this encounter Procedures Procedure Name Priority Date/Time Associated Diagnosis Comments SARS-COV-2 BY MOLECULAR Routine 08/18/2020 9:55 AM SUPERVISOR BLAST FURNACE Contact with and (suspected) exposure to other viral communicable diseases documented in this encounter Results * SARS-COV-2 BY MOLECULAR (08/18/2020 9:55 AM SUPERVISOR BLAST FURNACE) SARSCOV2 NOT DETECTED (Referen ce Range for this test is Not Detected ) [facility] THERMOFISHER FAST DX 08/19/2020 3:34 AM SUPERVISOR BLAST FURNACE [facility] Comment:This test was perfor med by a PCR method. Other NASAL STRUCTURE / Unknown Non-Phlebotomy Collection / Unknown 08/18/2020 9:55 AM SUPERVISOR BLAST FURNACE 08/18/2020 10:38 AM SUPERVISOR BLAST FURNACE Narrative [facility] - 08/19/2020 3:34 AM SUPERVISOR BLAST FURNACE Authorized Fact Sheets about this test for providers and patients are available at: https://www.fda.gov/medical-devices/guvrjtgmo-euftznpooh-unuqmgv-devices/emergen cy-us e-authorizations us Renetta Schofield APRN, CNP MICROBIOLOGY - GENERAL OR DERABLES Final Result [facility] [address] [place] [address], [place] documented in this encounter Visit Diagnoses Diagnosis Contact with and (suspected) exposure to other viral communicable diseases documented in this encounter Additional Health Concerns Infection Onset Date Last Indicated Resolved Time COVID - 19 08/18/2020 08/18/2020 09/07/2020 12:1 8 AM SUPERVISOR BLAST FURNACE COVID - 19 Comment:COVID swab is negative, removed COVID flag per ED MD order 10/02/2020 10/02/2020 10/02/2020 5:[address] COVID - 19 01/07/2022 01/07/2022 01/27/2022 12:1 6 AM CDT COVID - 19 Confirmed 02/28/2022 02/28/2022 022 12:16 AM CDT COVID - 19 03/27/2024 03/27/2024 03/27/2024 12:4 2 PM CDT Assessment Noted Time PHQ-9 Depression Total Score: 1 07/17/20 20 9:00 AM SUPERVISOR BLAST FURNACE documented as of this encounter Care Teams Commercial Real Estate Agent Relationship Specialty Start Date End Date Emilia Horner MD [address] [address] PCP - General Family Medicine 01/02/19 Amauri Raza MD Consulting Physician Rheumatology 08/05/14 Trip Higginbotham MD [address] [place] [address] Consulting Physician Allergy & Immunology 10/06/14 Ofelia Bundy PAC [address] [place] [address] Physician Station Cleaning Porter Physician Station Cleaning Porter 10/06/14 Sabas Gold MD [address] [place] [phone] Consulting Physician Gastroenterology 04/01/15 Andre Celis MD [address] [place] [phone] Consulting Physician Urology 05/21/18 Gabriela Krishnamurthy MD [address] [facility] [place] [address] Rn New Graduate Interventional Cardiology 10/14/24 Marcial Ceja MD [address] [facility] [place], [place] [address] Consulting Physician Cardiovascular Disease - Cardiology 10/14/24 documented as of this encounter
--- OUTSIDE RECORDS SUMMARY | 2025-04-01 08:52 | XMS_ITS | Encounter Summary ---
Author Organization [facility] Address [address] [place] [address] Phone Care Team Providers Care Employee Counselor Name Role Phone Amauri Raza MD Unavailable Trip Higginbotham MD Unavailable [phone] Ofelia Bundy PAC Unavailable Sabas Gold MD Unavailable [phone] Andre Celis MD Unavailable Emilia Horner MD Primary Care Provider [phone] Gabriela Krishnamurthy MD Unavailable Marcial Ceja MD Unavailable Reason for Visit * Reason Comments Medication Refill Encounter Details Date Type Department Care Team (Late st Contact Info) Description 01/08/2021 Refill [facility] - Family Medicine - Normal [address] [facility] [address] [place] [address] Emilia Horner MD [address] [facility] [address] [place] [address] Medication Refill Social History Tobacco Use Types [...] on file Legal Sex Female 3:00 AM INDUSTRIAL EDITOR Gender Identity Not on file Sexual [...] 2 months ago Inflammatory arthritis [facility] - Family Medicine - Normal Emilia Díaz MD 6 months ago Encounter for general adult medical examination without abnormal findings [facility] - Family Medicine - Normal Emilia Díaz MD 11 months ago Injury of right middle finger, subsequent encounter [facility] - Family Medicine - Normal Latesha Suresh APN, STATISTICAL SECRETARY 1 year ago Preop examination [facility] Family Medicine - Emilia Kay MD 1 year ago Paronychia of finger, right [facility] Family Medicine - Normal Noemi Forbes APN, STATISTICAL SECRETARY Upcoming Appointments Future Appointments In 2 days Trip Rodriguez, [facility] [place]A [place] - Recent and Past Visits Recent Visits Date Type Provider Dept 10/30/20 Office Visit Emilia Díaz MD [facility] [place] 07/17/20 Office Visit Emilia Díaz MD [facility] [place] 02/13/20 Office Visit Latesha Suresh APN, STATISTICAL SECRETARY [facility] [place] 01/13/20 Office Visit Emilia Díaz MD [facility] [place] 12/27/19 Office Visit Noemi Forbes APN, STATISTICAL SECRETARY [facility] [place] Showing recent visits [...] Depression Total Score: 1 07/17/20 9:00 AM INDUSTRIAL EDITOR documented as of this encounter Care Teams Employee Counselor Relationship Specialty Start Date End Date Emilia Horner MD [address] [place] [address] PCP - General Family Medicine 01/02/19 Amauri Raza MD Consulting Physician Rheumatology 08/05/14 Trip Higginbotham MD [address] [place], [place] [address] Consulting Physician Allergy & Immunology 10/06/14 Ofelia Bundy PAC [address] [place] [address] Physician Grants Officer Physician Grants Officer 10/06/14 Sabas Gold MD [address] [facility] [place] [address] Consulting Physician Gastroenterology 04/01/15 Andre Celis MD [address] [place] [phone] Consulting Physician Urology 05/21/18 Gabriela Krishnamurthy MD [address] [facility] [place] [address] Book Trimmer Interventional Cardiology 10/14/24 Marcial Ceja MD [address] [place] [address] Consulting Physician Cardiovascular Disease - Cardiology 10/14/24 documented as of this encounter
--- OUTSIDE RECORDS SUMMARY | 2025-04-01 08:52 | XMS_ITS | Encounter Summary ---
Author Organization [facility] Address [address] [place] [address] Phone Care Team Providers Care Architectural Renderer Name Role Phone Amauri Raza MD Unavailable [phone] Trpi Higginbotham MD Unavailable [phone] Ofelia Bundy PAC Unavailable [phone] Sabas Gold MD Unavailable [phone] Andre Celis MD Unavailable Emilia Horner MD Primary Care Provider Gabriela Krishnamurthy MD Unavailable Marcial Ceja MD Unavailable Reason for Visit * Reason Onset Date Comments Medication Refill 03/11/2021 Gabapentin Medication Refill 03/12/2021 Gabapentin 300 MG Encounter Details Date Type Department Care Team (Late st Contact Info) Description 03/11/2021 Refill [facility] - Family Medicine - Normal [address] [facility] [address] [place] [address] Emilia Horner MD [address] [facility] [address] [place] [address] Medication Refill (Gabapentin ); Medication Refill (Gabapentin [...] on file Legal Sex Female 3:00 AM CHILDREN'S ATTENDANT Gender Identity Not on file Sexual Orientation [...] Total Score: 1 07/17/20 20 9:00 AM CHILDREN'S ATTENDANT documented as of this encounter Care Teams Architectural Renderer Relationship Specialty Start Date End Date Emilia Horner MD [address] [address] PCP - General Family Medicine 01/02/19 Amauri Raza MD Consulting Physician Rheumatology 08/05/14 Trip Higginbotham MD [address] [place] [address] Consulting Physician Allergy & Immunology 10/06/14 Ofelia Bnudy PAC [address] [place] [address] Physician Dean Of Women Physician Dean Of Women 10/06/14 Sbaas Gold MD [address] [place] [address] Consulting Physician Gastroenterology 04/01/15 Andre Celis MD [address] [place] [address] Consulting Physician Urology 05/21/18 Gabriela Krishnamurthy MD [address] [place], [place] [phone] Rubber Press Operator Interventional Cardiology 10/14/24 Marcial Ceja MD [address] [place] [place], [place] [address] Consulting Physician Cardiovascular Disease - Cardiology 10/14/24 documented as of this encounter
--- OUTSIDE RECORDS SUMMARY | 2025-04-01 08:52 | XMS_ITS | Encounter Summary ---
Author Organization [facility] Address [address] [place] [address] Phone Care Team Providers Care Tax Consultant Name Role Phone Amauri Raza MD Unavailable Trip Higginbotham MD Unavailable [phone] Ofelia Bundy PAC Unavailable [phone] Sabas Gold MD Unavailable [phone] Andre Celis MD Unavailable Emilia Horner MD Primary Care Provider Gabriela Krishnamurthy MD Unavailable Marcial Ceja MD Unavailable Reason for Visit * Reason Comments Medication Refill Encounter Details Date Type Department Care Team (Late st Contact Info) Description 01/20/2024 Refill [facility] - Family Medicine - Normal [address] [facility] [address] [place] [address] Emilia Horner MD [address] [facility] [address] [place] [address] Medication Refill Social History Tobacco Use Types Packs/Day Years Used Date Smoking Tobacco: Never Smokeless Tobacco: Never Alcohol Use Standard Drinks/Week Comments Yes 0 (1 standard drink = 0.6 oz pur e alcohol) Occasional, 1 glass per month [facility] Utilities Answer Date Recorded In the past 12 months has e electric, gas, oil, or water company threatened to shut off services in your home? No 10/08/2023 Social Connection and Isolation Panel Answer Date Recorded In a typical week, how many times do you talk on the phone with family, friends, or neighbors? More than three times a week 10/08/2023 How often do you get togethe r with friends or relatives? Once a week 10/08/2023 How often do you attend chur ch or church services? More than 4 times per year 10/08/2023 Do you belong to any clubs o r organizations such as jewish groups, unions, fraternal or athletic groups, or [...] Total Score - Questions 1-9 5 01/12 [facility] - [...] place to sleep or slept in a fpc (including now)? No 10/08/2023 Education Answer Date Recorded What is the highest level of school you have completed or the highest degree you have received? Master's degree (e.g., MA, MS, Carolyn, MEd, OCCUPATIONAL THERAPY ASSISTANT, MALA) 01/25/2023 Sexually Active Control Partners Comments Not Currently Male Comments No Sex and Gender Information Value Date Recorded Sex Assigned at Not on file Legal Sex Female 3:00 AM AIRDROP SYSTEMS TECHNICIAN Gender Identity Not on file Sexual Orientation Not on file documented as of this encounter Miscellaneous Notes * Telephone Encounter - Zora Patel RN - 01/22/2024 8:52 AM CDT Fenofibrate refilled and signed per [facility] chronic medication standing order for Pediatric and Adult Patients. Gabapentin failed the protocol. Order pended All Patient Appointments Provider Department Dept Phone 02/08/2024 1:00 PM Emilia Horner [facility] - Family Medicine - Normal [phone] Requested Prescriptions Pending Prescriptions Disp Refills fenofibrate [...] [place] 08/28/23 Office Visit Noemi Forbes APRN, RAG COLLECTOR [facility] [place] 01/25/23 Office Visit [...] [place] 08/28/23 Office Visit Noemi Forbes APRN, RAG COLLECTOR [facility] [place] 01/25/23 Office Visit Emilia Horner MD [facility] [place] Showing recent visits within past 365 days and meeting all other requirements Future Appointments Date Type Provider Dept 02/08/24 Appointment Emilia Horner MD [facility] [place] Showing future appointments within [...] documented as of this encounter Care Teams Tax Consultant Relationship Specialty Start Date End Date Emilia Horner MD [address] [address] PCP - General Family Medicine 01/02/19 Amauri Raza MD Consulting Physician Rheumatology 08/05/14 Trip Higginbotham MD [address] [place] [address] Consulting Physician Allergy & Immunology 10/06/14 Ofelia Bundy PAC [address] [place] [address] Physician Metal Refiner Physician Metal Refiner 10/06/14 Sabas Gold MD [address] [place] [address] Consulting Physician Gastroenterology 04/01/15 Andre Celis MD [address] [place] [phone] Consulting Physician Urology 05/21/18 Gabriela Krishnamurthy MD [address] [place] [address] Office Associate Interventional Cardiology 10/14/24 Marcial Ceja MD [address] [facility] [address] Consulting Physician Cardiovascular Disease - Cardiology 10/14/24 documented as of this encounter
--- OUTSIDE RECORDS SUMMARY | 2025-04-01 08:52 | XMS_ITS | Clinical Summary ---
Author Organization [facility] Address [address] [place] [address] Phone Care Team Providers Care Manager Clinical Name Role Phone Amauri Raza MD Unavailable [phone] Trip Higginbotham MD Unavailable [phone] Ofelia Bundy PAC Unavailable Sabas Gold MD Unavailable [phone] Andre Celis MD Unavailable Emilia Horner [...] HR Take 1 tab by mouth daily 9 Active Carboxymethylcellu lose Sodium (EYE DROPS OP) Place in affected eye(s). Active Cyanocobalamin (B-12 COMPLIANCE INJECTION IJ) by Injection route. Active Lactobacillus Rhamnosus, GG, ( Probiotic Digestive Care) Capsule Take 1 Capsule by mouth. Active Diclofenac Sodium (VOLTAREN) 1 % GelIndications:Nec k pain Apply 2 g 3 times daily as needed (pain Feet, ankles, knees and hands). 300 g 5 2 Active hydroxychloroquine (PLAQUENIL) 200 MG Tablet Take 200 mg by mouth 2 times daily. Active estradiol (ESTRACE) 0.1 MG/GM Cream by Vaginal route as needed. 3 Active albuterol 108 (90 Base) MCG/ACT Aerosol SolutionIndication s:Mild persistent asthma with exacerbation take 2 Puffs by inhalation every 4 hours as needed for Wheezing or Cough. 6.7 g 4 Active BABY ASPIRIN PO Take 81 mg by mouth in the morning and at bedtime. Active Fexofenadine HCl (MIRIAM PO) Take by mouth daily after breakfast. Active metoprolol tartrate (LOPRESSOR) 25 MG Tablet Take 0.5 Tablets by mouth 2 times daily. 90 Tablet 3 5 Active gabapentin (NEURONTIN) 300 MG CapsuleIndications :Fibromyalgia Take 1 Capsule by mouth 2 times daily. 180 Capsule 5 Active fenofibrate 160 MG TabletIndications: Mixed hyperlipidemia Take 1 Tablet by mouth daily. 90 Tablet 5 Active esomeprazole (NexIUM) 40 MG CAPSULE DELAYED RELEASE Take 1 Capsule by mouth daily. 90 Capsule 3 5 Active amitriptyline (ELAVIL) 50 MG TabletIndications: Fibromyalgia,Irrit able bowel syndrome with diarrhea Take 1 Tablet by mouth nightly. 90 Tablet 2 5 Active montelukast (SINGULAIR) 10 MG TabletIndications: Allergic rhinitis, unspecified seasonality, unspecified trigger Take 1 Tablet by mouth every evening. 90 Tablet 5 Active budesonide-formote rol fumarate (SYMBICORT) 80-4.5 MCG/ACT AerosolIndications :Mild persistent asthma without complication INHALE 2 PUFFS BY MOUTH EVERY 12 HOURS 30.6 g 5 Active celecoxib (CeleBREX) 200 MG CapsuleIndications :Primary osteoarthritis of left knee TAKE 1 CAPSULE BY MOUTH DAILY 90 Capsule 5 Active Hospital, Clinic, or Other Facility Administered Medication [...] 08/12/2024 Assessment & Plan (08/12/2024 2:00 PM CATERING SERVER): Repeat EKG in clinic showed a QTC [...] Hyperlipidemia Assessment & Plan (08/12/2024 2:00 PM CATERING SERVER): Stable continue current management 2D echo from [...] Encounters Date Type Department Care Team Description 02/05/2025 Telephone [facility] - Gastroenterology [facility] [address] [place] [address] Sabas Gold MD medical records from Last 3 Months Immunizations Immunization Administration [...] Occasionally have a couple glasses if wine. [facility] Utilities Answer Date Recorded In the [...] How often do you attend chur or baptist services? More than 4 times per year 10/08/2023 Do you belong to any clubs o r organizations such as pentecostalism groups, unions, fraternal or athletic groups, or [...] Total Score - Questions 1-9 5 01/12 [facility] [place] of Occupat ional Health - Occupational Stress [...] place to sleep or slept in a detention (including now)? No 10/08/2023 Education Answer Date Recorded What is the highest level of school you have completed or the highest degree you have received? Master's degree (e.g., MA, MS, Carolyn, MEd, CORPORATE TRAVEL COUNSELOR, MALA) 01/25/2023 Sexually Active Control Partners Comments Not Currently Male Comments No Sex and Gender Information Value Date Recorded Sex Assigned at Not on file Legal Sex Female 3:00 AM CATERING SERVER Gender Identity Not on file Sexual Orientation Not on file Last Filed Vital Signs Vital Sign Reading Time Taken Comments Blood Pressure 132/74 09/20/2024 10:28 AM CATERING SERVER Pulse 96 09/20/2024 10:28 AM CATERING SERVER Temperature 36.7 C (98 F) 07/29/2024 9:55 AM CATERING SERVER Respiratory Rate 20 09/20/2024 10:28 AM CATERING SERVER Oxygen Saturation 93% 08/12/2024 1:09 PM CATERING SERVER Inhaled Oxygen Concentration - - Weight 95.3 kg (210 lb) 09/20/2024 10:28 AM CATERING SERVER Height 170.2 cm (5' 7) 09/20/2024 10:28 AM CATERING SERVER Body Mass Index 32.89 09/20/2024 10:28 AM CATERING SERVER Plan of Treatment Health Maintenance Due Date Last Done Comments Zoster Immunization (1 of 2) 1972 Cologuard 1998 Immunochemical Fecal Occult Blood 1998 Respiratory Syncytial Virus (RSV) Immunization (Adult) (1 - Risk 60-74 years 1-dose series) 2013 Mammogram 09/05/2023 09/05/2022, /0 10/2021, 08/03/2020, Additional history exists Td Immunization Every 10 Years (Adults With 1 Tdap) 12/28/2023 12/27/2013, 08/14/2002 SARS-COV-2 Immunization ( season) 2024 06/01/2022, 12/22/2021, 06/16/2021, Additional history exists DEXA Bone Density 09/05/2024 09/05/2022, , 08/03/2020, Additional history exists Colonoscopy 02/09/2025 02/09/2015, 01/13, 01/12/2010, Additional history exists Colorectal Cancer Screening 02/09/2025 Influenza Immunization (#1) 04/14/202505/14, 08/28/2023, 06/16/2021, Additional history exists Pneumococcal Immunization (50+ years) Completed 07/17/2020, 05/24/2019 Pneumococcal Immunization Combined Discontinued 07/17/2020, 05/24/2019 Hepatitis C Virus (HCV) Screening Completed 02/07/2023 Hepatitis B Immunization Aged Out No longer [...] this topic Medical Devices Implanted Type Area Credit Specialist Device Identifier Shelf Expiration Date Model / Serial / Lot Injector Bone Cement 1x40 High Viscosity - [id number] Implanted:Qty: 1 on 02/03/2020 by Trip Rodriguez DO at [facility] IMPLANT Left: Knee Sondra [employer] 11/12/2023 [id number] / / [id number] Injector Bone Cement 1x40 W/Gentamicin - [id number] Implanted:Qty: 1 on 02/03/2020 by Trip Rodriguez DO at [facility] IMPLANT Left: Knee [employer] 07/13/2021 [id number] / / [id number] Component Patellar 7.5mm 32mm Glenna Ii - [id number] Implanted:Qty: 1 on 02/03/2020 by Trip Rodriguez DO at [facility] IMPLANT Left: Knee [employer] 12/16/2029 [id number] / / [id number] Baseplate Tib Glenna Ii 3 Left Knee Ti Nonporous - [id number] Implanted:Qty: 1 on 02/03/2020 by Trip Rodriguez DO at [facility] IMPLANT Left: Knee [employer] 07/05/2029 [id number] / / [id number] Component Fem 5 Knee Left Post Stab Glenna Ii Legion Spc Oxinium - [id number] Implanted:Qty: 1 on 02/03/2020 by Trip Rodriguez DO at [facility] IMPLANT Left: Knee [employer] 10/06/2029 [id number] / / [id number] Insert Tib 3-4 9mm Knee Xlpe Post Stabilized High Flexion Legion - [id number] Implanted:Qty: 1 on 02/03/2020 by Trip Rodriguez DO at [facility] IMPLANT Left: Knee [employer] 01/31/2028 [id number] / / [id number] Procedures Procedure Name Priority Date/Time Associated Diagnosis Comments HEPATITIS C ANTIBODY Routine 02/07/2023 2:50 PM CDT Encounter for hepatitis C screening test for low risk patient BONE DENSITY GENERIC 09/05/2022 12:00 AM CATERING SERVER MAMMOGRAM BILATERAL GENERIC 09/05/2022 12:00 AM CATERING SERVER HM COLONOSCOPY Routine 02/09/2015 from Last 3 Months or Most Recently Relevant to Health Maintenance Results * HEPATITIS C ANTIBODY (02/07/2023 2:50 PM CDT) hepatitis C antibody 0.05 <1 S/CO [facility] ARCH [id number] 02/08/2023 10:38 AM CDT [facility] Comment: Signal/Cutoff ratio < 0.79 is Nondetected Signal/Cutoff ratio 0.80-0.99 is Grayzone Signal/Cutoff ratio > 0.99 is Detected Supplemental assays are recommended if signal/cutoff ratio is >/=1.00. Signal/cutoff ratio result >/= 5.00 is 97% predictive of positivity for recombinant immunoblot assay (RIBA) and will be reported to the [place] Department of Public Health as required. Blood Venipuncture / Unknown 02/07/2023 2:50 PM CDT 02/07/2023 3:00 PM CDT us Emilia Horner MD CHEMISTRY ORDERABLES Final Result Performing Organization Address City/[facility] Co de Phone Number [facility] [address] [place] [address], [place] * BONE DENSITY GENERIC SCAN (09/05/2022 12:00 AM CATERING SERVER) 09/05/2022 us Provider Scan IMG DEXA ORDERABLES Final Result Performing Organization Address City/[facility]/ZIP Co de Phone Number SCAN * MAMMOGRAM BILATERAL MISCELLANEOUS (09/05/2022 12:00 AM CATERING SERVER) 09/05/2022 us Provider Scan IMG MAMMO ORDERABLES Final Resul t Performing Organization Address City/[facility]/ZIP Co de Phone Number SCAN * HM COLONOSCOPY (02/09/2015) us Tyra English MD PROCEDURE/MINOR SURGICAL ORD ERABLES [...] 6:56 PM 04/27/2016 1:50 PM Care Teams Manager Clinical Relationship Specialty Start Date End Date Emilia Horner MD [address] [place] [address] PCP - General Family Medicine 01/02/19 Amauri Raza MD Consulting Physician Rheumatology 08/05/14 Trip Higginbotham MD [address] [place], [place] [address] Consulting Physician Allergy & Immunology 10/06/14 Ofelia Bundy PAC [address] [place] [address] Physician Job Change Crew Member Physician Job Change Crew Member 10/06/14 Sabas Gold MD [address] [place] [address] Consulting Physician Gastroenterology 04/01/15 Andre Celis MD [address] [place] [address] Consulting Physician Urology 05/21/18 Gabriela Krishnamurthy MD [address] [facility] [place] [address] Soap Mixer Interventional Cardiology 10/14/24 Marcial Ceja MD [address] [facility] [place] [address] Consulting Physician Cardiovascular Disease - Cardiology 10/14/24
--- OUTSIDE RECORDS SUMMARY | 2025-04-01 08:52 | XMS_ITS | Encounter Summary ---
Author Organization [facility] Address [address] [place] [address] Phone Care Team Providers Care Camelid Fiber Sorter Name Role Phone Amauri Raza MD Unavailable [phone] Trip Higginbotham MD Unavailable [phone] Ofelia Bundy PAC Unavailable Sabas Gold MD Unavailable [phone] Andre Celis MD Unavailable Emilia Horner MD Primary Care Provider [phone] Gabriela Krishnamurthy MD Unavailable Marcial Ceja MD Unavailable Reason for Visit * Reason Comments Medication Refill Encounter Details Date Type Department Care Team (Late st Contact Info) Description 11/18/2020 Refill [facility] - [place] [address] [place] [address] Sabas Gold MD [address] [place] [address] Medication Refill Social History Tobacco [...] on file 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 Gender Identity Not on file Sexual [...] Total Score: 1 07/17/20 20 9:00 AM PHOTOGRAMMETRIC TECHNICIAN documented as of this encounter Care Teams Camelid Fiber Sorter Relationship Specialty Start Date End Date Emilia Horner MD [address] [address] PCP - General Family Medicine 01/02/19 Amauri Raza MD Consulting Physician Rheumatology 08/05/14 Trip Higginbotham MD [address] [place] [address] Consulting Physician Allergy & Immunology 10/06/14 Ofelia Bundy PAC [address] [place] [address] [address] 1[address] Pressman Physician 1St Pressman 10/06/14 Sabas Gold MD [address] [place] [address] Consulting Physician Gastroenterology 04/01/15 Andre Celis MD [address] [place] [address] Consulting Physician Urology 05/21/18 Gabriela Krishnamurthy MD [address] [place] [address] Escalation Engineer Interventional Cardiology 10/14/24 Marcial Ceja MD [address] [place] [address] Consulting Physician Cardiovascular Disease - Cardiology 10/14/24 documented as of this encounter
--- OUTSIDE RECORDS SUMMARY | 2025-04-01 08:52 | XMS_ITS | Encounter Summary ---
Author Organization [facility] Address [address] [place] [address] Phone Care Team Providers Care Technical Writing Lead/Mgr Name Role Phone Amauri Raza MD Unavailable [phone] Trip Higginbotham MD Unavailable [phone] Ofelia Bundy PAC Unavailable Sabas Gold MD Unavailable [phone] Andre Celis MD Unavailable Emilia Horner MD Primary Care Provider [phone] Gabriela Krishnamurthy MD Unavailable Marcial Ceja MD Unavailable Reason for Visit * Reason Comments Medication Refill Encounter Details Date Type Department Care Team (Late st Contact Info) Description 05/07/2020 Refill [facility] - Family Medicine - [place] [address] [facility] [address] [place] [address] Emilia Horner MD [address] [facility] [address] [place] [address] Medication Refill Social History Tobacco Use Types [...] on file 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 Gender Identity Not on file Sexual Orientation [...] right middle finger, subsequent encounter [facility] Family Medicine - Normal Latesha Suresh APN, SAMANTHA 3 months ago Preop examination [facility] Family Medicine - Normal Emilia Díaz MD 4 months ago Paronychia of finger, right [facility] Family Medicine - Normal Noemi Forbes APN, VEGETABLE TESTER 7 months ago Other iron deficiency anemia [facility] Family Medicine - Normal Emilia Díaz MD 8 months ago Paronychia of finger, right [facility] Family Medicine - Normal Leigh Ann Ganoa APN, VEGETABLE TESTER Upcoming Appointments GUIDANCE SERVICES COORDINATOR - Recent and Past Visits Recent Visits Date Type Provider Dept 02/13/20 Office Visit Latesha Suresh APN, VEGETABLE TESTER [facility] [place] 01/13/20 Office Visit Emilia D[facility] [place] 12/27/19 Office Visit Noemi Forbes APN, VEGETABLE TESTER [facility] [place] 09/20/19 Office Visit Emilia D[facility] [place] 08/28/19 Office Visit Jimenez Leigh Ann MACKENZIE Travis, VEGETABLE TESTER [facility] [place] 05/24/19 Office Visit Emilia Dí[facility] [place] Showing recent visits within [...] 19 08/18/2020 08/18/2020 09/07/2020 12:1 8 AM CASE FITTER COVID - 19 Comment:COVID swab is negative, [...] documented as of this encounter Care Teams Technical Writing Lead/Mgr Relationship Specialty Start Date End Date Emilia Horner MD [address] [place] [address] PCP - General Family Medicine 01/02/19 Amauri Raza MD Consulting Physician Rheumatology 08/05/14 Trip Higginbotham MD [address] [place] [address] Consulting Physician Allergy & Immunology 10/06/14 Ofelia Bundy PAC [address] [place] [address] Physician Bullet Maker Physician Bullet Maker 10/06/14 Sabas Gold MD [address] [place] [address] Consulting Physician Gastroenterology 04/01/15 Andre Celis MD [address] [place] [address] Consulting Physician Urology 05/21/18 Gabriela Krishnamurthy MD [address] [facility] [place], [place] [address] Windows Infrastructure Engineer Interventional Cardiology 10/14/24 Marcial Ceja MD [address] [facility] [place], [place] [address] Consulting Physician Cardiovascular Disease - Cardiology 10/14/24 documented as of this encounter
--- OUTSIDE RECORDS SUMMARY | 2025-04-01 08:52 | XMS_ITS | Patient Health Record ---
Author Organization Amada [facility] Address [address] [place], [place] [address] Care Team Providers Care Pipe Fitter Gas Pipe Name Role Phone Emilia Hernandez Primary Care Provider Unavailable Andre Celis Unavailable [phone] Tianna Mckeon Unavailable Allergies Allergen (clinical drug [...] Active B Complex Vitamins Orally A ctive [place] 3-6-9 Complex Orally Active NexIUM 40 MG 1 capsule Orally Once a day Active Estrace 0.1 MG/GM 1 gram Vaginal QHS for the first 2 weeks, then 3 x weekly; Duration: 30 days Active B-12 1000 MCG 1 tablet under the tongue and allow to dissolve Sublingual Once a day Active Symbicort 80-4.5 MCG/ACT 2 puffs Inhalat ion Twice a day Active Myrbetriq 50 mg 1 tablet Orally Once a day; Duration: 30 Active Probiotic Orally Active Myrbetriq 50 MG TAKE 1 TABLET BY MOUTH EVERY DAY Orally Once a day; Duration: 90 days Patient needs to be seen before further refills Active Amitriptyline HCl 25 MG 1 tablet at bedt maxine Orally Once a day Active Myrbetriq 50 MG 1 tablet Orally Once a day; Duration: 90 days Active Vitamin E 100 UNIT [...] Status Risk Notes Problem Frequency of micturition (286536742) Frequency of micturition (R35.0) Active confirmed Problem Urge incontinence of urine (87337071) Urge incontinence (N39.41) Active confirmed Problem Postmenopausal atrophic vaginitis (58645493) Postmenopausal atrophic vaginitis (N95.2) Active confirmed Problem Nocturia (654148188) Nocturia (R35.1) Active confirmed Problem Urgent desire to urinate (12254904) Urgency of urination (R39.15) Active confirmed Problem Female stress incontinence (24144910) Female stress incontinence (625.6) Inactive confirmed Problem Urge incontinence of urine (00910658) Urge incontinence (788.31) Inactive confirmed Problem Urinary frequency (665308625) Urinary frequency (788.41) Inactive confirmed Problem Nocturia (036305478) Nocturia (788.43) Inactive confirmed Problem Urgent desire to urinate (21419695) Urgency of urination (788.63) Inactive confirmed Encounters Encounter Location Date Provider Diagnosis [facility] [address] [place] [phone] 10/21/2024 Andre Leak Urgency of urination R39.15 [...] [employer] [address] [place] [address] [id number] Rebekha Mercado Self - patient is the insured Medical (General) History Medical History History ICD Code hysterectomy tonsillectomy Arthritis asthma Esophageal reflux fibromyalgia Hiatal hernia hyperlipidemia meniscal tear low hemoglobin Surgical History Surgery Date(Month/Year) foot surgery tonsillectomy knee surgery carpal tunnel release inguinal hernia repair hysterectomy, abdominal knee arthroscopy iron infusion R knee replacement 2023
--- OUTSIDE RECORDS SUMMARY | 2025-04-01 08:52 | XMS_ITS | Encounter Summary ---
Author Organization [facility] Address [address] [place] [address] Phone Care Team Providers Care Seat Nailer Name Role Phone Amauri Raza MD Unavailable [phone] Trip Higginbotham MD Unavailable Ofelia Bundy PAC Unavailable Sabas Gold MD Unavailable [phone] Andre Celis MD Unavailable Emilia Horner MD Primary Care Provider Gabriela Krishnamurthy MD Unavailable [phone] Marcial Ceja MD Unavailable Reason for Visit * Reason Onset Date Comments Pre-Operative Exam 07/31/2023 Encounter Details Date Type Department Care Team (Late st Contact Info) Description 07/31/2023 Telephone [facility] Family Medicine - [place] [address] [place] [address] Emilia Horner MD [address] [facility] [address] [place] [address] Pre-Operative Exam Social History Tobacco Use Types [...] Master's degree (e.g., MA, MS, Carolyn, MEd, 4TH GRADE MATH TEACHER, MALA) 01/25/2023 Sexually Active Control Partners Comments Not Currently Male Comments No Sex and Gender Information Value Date Recorded Sex Assigned at Not on file 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 Trip Rodriguez Diagnosis: right knee osteoarthritis Procedure Name: Right total knee arthroplasty Facility: [facility] Anesthesia: spinal Pre-op testing: CBC, CMP, Urinalysis and EKG Fax # for results & clearance: LATHER documented in this encounter Plan of Treatment Not on file documented as of this encounter Visit Diagnoses Not on filedocumented in this encounter Additional Health Concerns Infection Onset Date Last Indicated Resolved Time COVID - 19 03/27/2024 03/27/2024 03/27/2024 12:4 2 PM CDT Assessment Noted Time PHQ-9 Depression Total Score: 5 01/26/20 23 10:00 AM CDT documented as of this encounter Care Teams Seat Nailer Relationship Specialty Start Date End Date Emilai Horner MD [address] [facility] [address] [place] [address] PCP - General Family Medicine 01/02/19 Amauri Raza MD Consulting Physician Rheumatology 08/05/14 Trip Higginbotham MD [address] [place] [address] Consulting Physician Allergy & Immunology 10/06/14 Ofelia Bundy PAC [address] [place] [address] Physician Auto Polisher Physician Auto Polisher 10/06/14 Sabas Gold MD [address] [place] [address] Consulting Physician Gastroenterology 04/01/15 Andre Celis MD [address] [place] [address] Consulting Physician Urology 05/21/18 Gabriela Krishnamurthy MD [address] [place] [address] Etcher Enameling Interventional Cardiology 10/14/24 Marcial Ceja MD [address] [facility] [place], [place] [address] Consulting Physician Cardiovascular Disease - Cardiology 10/14/24 documented as of this encounter
--- OUTSIDE RECORDS SUMMARY | 2025-04-01 08:52 | XMS_ITS | Encounter Summary ---
Author Organization [facility] Address [address] [place] [place] [address] Phone Care Team Providers Care Manager Metal Name Role Phone Amauri Raza MD Unavailable [phone] Trip Higginbotham MD Unavailable [phone] Ofelia Bundy PAC Unavailable [phone] Sabas Gold MD Unavailable [phone] Andre Celis MD Unavailable Emilia Horner MD Primary Care Provider Gabriela Krishnamurthy MD Unavailable Marcial Ceja MD Unavailable Reason for Visit * Reason Comments Medication Refill Encounter Details Date Type Department Care Team (Late st Contact Info) Description 12/28/2021 Refill [facility] - [place] [address] [place] [address] Sabas Gold MD [address] [place] [address] Medication Refill Social History Tobacco [...] on file 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 Gender Identity Not on file Sexual Orientation [...] as of this encounter Care Teams Manager Metal Relationship Specialty Start Date End Date Emilia Horner MD [address] [facility] [address] [place] [address] PCP - General Family Medicine 01/02/19 Amauri Raza MD Consulting Physician Rheumatology 08/05/14 Trip Higginbotham MD [address] [place] [address] Consulting Physician Allergy & Immunology 10/06/14 Ofelia Bundy PAC [address] [place] [address] Physician Salesperson Pianos And Organs Physician Salesperson P[employer]os And Organs 10/06/14 Sabas Gold MD [address] [place] [address] Consulting Physician Gastroenterology 04/01/15 Andre Celis MD [address] [place] [address] Consulting Physician Urology 05/21/18 Gabriela Krishnamurthy MD [address] [facility] [place] [address] Archeologist Interventional Cardiology 10/14/24 Marcial Ceja MD [address] [facility] [place], [place] [address] Consulting Physician Cardiovascular Disease - Cardiology 10/14/24 documented as of this encounter
--- OUTSIDE RECORDS SUMMARY | 2025-04-01 08:52 | XMS_ITS | Encounter Summary ---
Author Organization [facility] Address [address] [place] [address] Phone Care Team Providers Care Tests Superintendent Name Role Phone Amauri Raza MD Unavailable Trip Higginbotham MD Unavailable [phone] Ofelia Bundy PAC Unavailable Sabas Gold MD Unavailable [phone] Andre Celis MD Unavailable Emilia Horner MD Primary Care Provider Gabriela Krishnamurthy MD Unavailable [phone] Marcial Ceja MD Unavailable Reason for Visit * Reason Comments Medication Refill Encounter Details Date Type Department Care Team (Late st Contact Info) Description 09/06/2021 Refill [facility] - Family Medicine - Normal [address] [facility] [place] [address] [place] [address] Emilia Horner MD [address] [facility] [place] [address] [place] [address] Medication Refill Social History Tobacco Use Types [...] on file 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 No / Unsure 09/08/2021 10:55 AM OIL FIELD PUMPER documented as of this encounter Miscellaneous Notes * Telephone Encounter - Emilia Díaz MD - 09/12/2021 8:43 PM OIL FIELD PUMPER approved FIELD PUMPER * Telephone Encounter - Leigh Ann Macias RN - 09/09/2021 8:53 AM CST Requested Prescriptions Pending Prescriptions Disp Refills ??? fenofibrate 160 MG Tablet [Pharmacy Med Name: FENOFIBRATE 160MG TABLETS] 90 Tablet 1 Sig: TAKE 1 TABLET BY MOUTH DAILY Last refilled date: 03/11/2021 #90/1R STEF: 04/13/2021 NOV: 09/15/2021 (pre-op) Refill pended, please sign/change or refuse as appropriate FIELD PUMPER documented in this encounter Plan of Treatment [...] documented as of this encounter Care Teams Tests Superintendent Relationship Specialty Start Date End Date Emilia Horner MD [address] [address] PCP - General Family Medicine 01/02/19 Amauri Raza MD Consulting Physician Rheumatology 08/05/14 Trip Higginbotham MD [address] [place], [place] [address] Consulting Physician Allergy & Immunology 10/06/14 Ofelia Bundy PAC [address] [place] [address] Physician Plate Painter Apprentice Physician Plate Painter Apprentice 10/06/14 Sabas Gold MD [address] [place] [address] Consulting Physician Gastroenterology 04/01/15 Andre Celis MD [address] [place] [phone] Consulting Physician Urology 05/21/18 Gabriela Krishnamurthy MD [address] [place] [address] Supervisor Tumblers Interventional Cardiology 10/14/24 Marcial Ceja MD [address] [place], [place] [address] Consulting Physician Cardiovascular Disease - Cardiology 10/14/24 documented as of this encounter
--- OUTSIDE RECORDS SUMMARY | 2025-04-01 08:52 | XMS_ITS | Encounter Summary ---
Author Organization [facility] Address [address] [place] [address] Phone Care Team Providers Care Felt Checker Name Role Phone Amauri Raza MD Unavailable Trip Higginbotham MD Unavailable [phone] Ofelia Bundy PAC Unavailable [phone] Sabas Gold MD Unavailable [phone] Andre Celis MD Unavailable Emilia Horner MD Primary Care Provider Gabriela Krishnamurthy MD Unavailable Marcial Ceja MD Unavailable Reason for Visit * Reason Comments Medication Refill Encounter Details Date Type Department Care Team (Late st Contact Info) Description 11/24/2021 Refill [facility] - Gastroenterology - [place] [address] [place] [place] [address] Sabas Gold MD [address] [place] [address] Medication Refill Social History Tobacco [...] on file 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 Gender Identity Not on file Sexual [...] documented as of this encounter Care Teams Felt Checker Relationship Specialty Start Date End Date Emilia Horner MD [address] [address] PCP - General Family Medicine 01/02/19 Amauri Raza MD Consulting Physician Rheumatology 08/05/14 Trip Higginbotham MD [address] [place] [address] Consulting Physician Allergy & Immunology 10/06/14 Ofelia Bundy PAC [address] [place] [address] Physician Insurance Representative Physician Insurance Representative 10/06/14 Sabas Gold MD [address] [place] [phone] Consulting Physician Gastroenterology 04/01/15 Andre Celis MD [address] [place] [address] Consulting Physician Urology 05/21/18 Gabriela Krishnamurthy MD [address] [facility] [place] [place] [address] Direct Support Worker Interventional Cardiology 10/14/24 Marcial Ceja MD [address] [facility] [place] [address] Consulting Physician Cardiovascular Disease - Cardiology 10/14/24 documented as of this encounter
--- OUTSIDE RECORDS SUMMARY | 2025-04-01 08:52 | XMS_ITS | Encounter Summary ---
Author Organization [facility] Address [address] [place] [address] Phone Care Team Providers Care Experimental Welder Name Role Phone Amauri Raza MD Unavailable [phone] Trip Higginbotham MD Unavailable [phone] Ofelia Bundy PAC Unavailable Sabas Gold MD Unavailable [phone] Andre Celis MD Unavailable Emilia Horner MD Primary Care Provider Gabriela Krishnamurthy MD Unavailable Marcial Ceja MD Unavailable Encounter Details Date Type Department Care Team (Late st Contact Info) Description 09/06/2022 Telephone [facility] - Family Medicine - Normal [address] [facility] [place] [address] [place], [place] [address] Emilia Horner MD [address] [facility] [place] [address] [place], [place] [address] Social History Tobacco Use Types Packs/Day Years [...] on file Legal Sex Female 3:00 AM FIRST DYER Gender Identity Not on file Sexual Orientation Not on file documented as of this encounter Miscellaneous Notes * Telephone Encounter - Emilia Horner MD - 09/06/2022 11:06 AM FIRST DYER Benign mammogram. Continue recommended screening. T DYER * Telephone Encounter - Thu Butts - 09/06/2022 10:35 AM CST Faxed received from [facility] with mammo results and is placed in Dr. Horner inbox for review. T DYER documented in this encounter Plan of Treatment Not on file documented as of this encounter Visit Diagnoses Not on filedocumented in this encounter Additional Health Concerns Infection Onset Date Last Indicated Resolved Time COVID - 19 03/27/2024 03/27/2024 03/27/2024 12:4 2 PM CDT Assessment Noted Time PHQ-9 Depression Total Score: 1 04/13/20 21 10:00 AM CDT documented as of this encounter Care Teams Experimental Welder Relationship Specialty Start Date End Date Emilia Horner MD [address] [place] [address] PCP - General Family Medicine 01/02/19 Amauri Raza MD Consulting Physician Rheumatology 08/05/14 Trip Higginbotham MD [address] [place] [address] Consulting Physician Allergy & Immunology 10/06/14 Ofelia Bundy PAC [address] [place] [address] Physician Antique Automobiles Repairer Physician [employer] Automobiles Repairer 10/06/14 Sabas Gold MD [address] [place] [address] Consulting Physician Gastroenterology 04/01/15 Andre Celis MD [address] [place] [address] Consulting Physician Urology 05/21/18 Gabriela Krishnamurthy MD [address] [facility] [address] [address] [place], [place] [address] Programmer Analyst Consultant Interventional Cardiology 10/14/24 Marcial Ceja MD [address] [facility], [place] [address] Consulting Physician Cardiovascular Disease - Cardiology 10/14/24 documented as of this encounter
--- OUTSIDE RECORDS SUMMARY | 2025-04-01 08:52 | XMS_ITS | Encounter Summary ---
Author Organization [facility] Address [address] [place] [address] Phone Care Team Providers Care Driver Supervisor Name Role Phone Amauri Raza MD Unavailable [phone] Trip Higginbotham MD Unavailable [phone] Ofelia Bundy PAC Unavailable [phone] Sabas Gold MD Unavailable [phone] Andre Celis MD Unavailable Emilia Horner MD Primary Care Provider Gabriela Krishnamurthy MD Unavailable Marcial Ceja MD Unavailable Reason for Visit * Reason Comments Medication Refill Encounter Details Date Type Department Care Team (Late st Contact Info) Description 12/05/2022 Refill [facility] - Family Medicine - Normal [address] [facility] [place] [address] [place] [address] Emilia Horner MD [address] [facility] [place] [address] [place] [address] Medication Refill Social History Tobacco Use Types [...] on file 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 Gender Identity Not on file Sexual [...] Dept 01/14/22 Office Visit Emilia Hor[facility] MD [facility] Normal [place] 01/07/22 Office Visit Fred Johnson APRN, DESIGNATED BROKER [facility] Normal [place] 12/24/21 Office Visit Fred Johnson APRN, DESIGNATED BROKER [facility] Normal [place] Showing recent visits within past 365 days and meeting all other requirements Future Appointments Date Type Provider Dept 01/25/23 Appointment Emilia Horner MD [facility] Normal [place] Showing future appointments within next 90 days and meeting all other requirements * Telephone Encounter - Meghan Tejeda - 12/08/2022 12:27 PM CDT Appointment made 01/25 * Telephone Encounter - Wilma Jones - 12/06/2022 1:18 PM CDT Patient's in [place] until first week in December and will [...] documented as of this encounter Care Teams Driver Supervisor Relationship Specialty Start Date End Date Emilia Horner MD [address] [address] PCP - General Family Medicine 01/02/19 Amauri Raza MD Consulting Physician Rheumatology 08/05/14 Trip Higginbotham MD [address] [place] [address] Consulting Physician Allergy & Immunology 10/06/14 Ofelia Bundy PAC [address] [place] [address] Physician Circular Distributor Physician Circular Distributor 10/06/14 Sabas Gold MD [address] [place] [phone] Consulting Physician Gastroenterology 04/01/15 Andre Celis MD [address] [place] [address] Consulting Physician Urology 05/21/18 Gabrieal Krishnamurthy MD [address] [facility] [place] [address] Tool Machinist Interventional Cardiology 10/14/24 Marcial Ceja MD [address] [facility] [address] [place], [place] [address] Consulting Physician Cardiovascular Disease - Cardiology 10/14/24 documented as of this encounter
--- OUTSIDE RECORDS SUMMARY | 2025-04-01 08:52 | XMS_ITS | Encounter Summary ---
Author Organization [facility] Address [address] [place] [address] Phone Care Team Providers Care Technical Support Assistant Name Role Phone Amauri Raza MD Unavailable [phone] Trip Higginbotham MD Unavailable [phone] Ofelia Bundy PAC Unavailable Sabas Gold MD Unavailable [phone] Andre Celis MD Unavailable Emilia Horner MD Primary Care Provider Gabriela Krishnamurthy MD Unavailable Marcial Ceja MD Unavailable Reason for Visit * Reason Comments Medication Refill Encounter Details Date Type Department Care Team (Late st Contact Info) Description 03/25/2023 Refill [facility] - Family Medicine - Normal [address] [facility] [place] [address] [place] [address] Noemi Forbes APRN, PIPELINE ENGINEER [address] [facility] [place] [address] [place] [address] Medication Refill Social History Tobacco Use Types [...] Master's degree (e.g., MA, MS, Carolyn, MEd, GHOST WRITER, MALA) 01/25/2023 Sexually Active Control Partners Comments Not Currently Male Comments No Sex and Gender Information Value Date Recorded Sex Assigned at Not on file Legal Sex Female 3:00 AM SHELTER ADVOCATE Gender Identity Not on file Sexual Orientation [...] as of this encounter Care Teams Technical Support Assistant Relationship Specialty Start Date End Date Emilia Horner MD [address] [address] PCP - General Family Medicine 01/02/19 Amauri Raza MD Consulting Physician Rheumatology 08/05/14 Trip Higginbotham MD [address] [place] [address] Consulting Physician Allergy & Immunology 10/06/14 Ofelia Bundy PAC [address] [place] [address] Physician Home Help Aide Physician Home Help Aide 10/06/14 Sabas Gold MD [address] [place] [address] Consulting Physician Gastroenterology 04/01/15 Andre Celis MD [address] [place] [address] Consulting Physician Urology 05/21/18 Gabriela Krishnamurthy MD [address] [facility] [place] [address] Process Safety Engineering Technologist Interventional Cardiology 10/14/24 Marcial Ceja MD [address] [facility] [place], [place] [address] Consulting Physician Cardiovascular Disease - Cardiology 10/14/24 documented as of this encounter
--- OUTSIDE RECORDS SUMMARY | 2025-04-01 08:52 | XMS_ITS | Encounter Summary ---
Author Organization [facility] Address [address] [place] [address] Phone Care Team Providers Care Grey Goods Examiner Name Role Phone Amauri Raza MD Unavailable Trip Higginbotham MD Unavailable [phone] Ofelia Bundy PAC Unavailable Sabas Gold MD Unavailable [phone] Andre Celis MD Unavailable Emilia Horner MD Primary Care Provider Gabriela Krishnamurthy MD Unavailable Marcial Ceja MD Unavailable Encounter Details Date Type Department Care Team (Late st Contact Info) Description 08/28/2023 Telephone [facility] - Family Medicine - Normal [address] [facility] [place] [address] [place], [place] [address] Noemi Forbes APRN, OYSTER CULTIVATOR [address] [facility] [place] [address] [place], [place] [address] Social History Tobacco Use Types Packs/Day Years [...] Master's degree (e.g., MA, MS, Carolyn, MEd, CIGARETTE MAKING MACHINE HOPPER FEEDER, MALA) 01/25/2023 Sexually Active Control Partners Comments Not Currently Male Comments No Sex and Gender Information Value Date Recorded Sex Assigned at Not on file Legal Sex Female 3:00 AM IMAGING ENGINEER Gender Identity Not on file Sexual Orientation [...] documented as of this encounter Care Teams Grey Goods Examiner Relationship Specialty Start Date End Date Emilia Horner MD [address] [address] PCP - General Family Medicine 01/02/19 Amauri Raza MD Consulting Physician Rheumatology 08/05/14 Trip Higginbotham MD [address] [place] [address] Consulting Physician Allergy & Immunology 10/06/14 Ofelia Bundy PAC [address] [place] [address] Physician Vacuum Caster Physician Vacuum Caster 10/06/14 Sabas Gold MD [address] [place] [address] Consulting Physician Gastroenterology 04/01/15 Andre Celis MD [address] [place] [address] Consulting Physician Urology 05/21/18 Gabriela Krishnamurthy MD [address] [facility] [address] [place], [place] [address] Bacteriologist Medical Interventional Cardiology 10/14/24 Marcial Ceja MD [address] [facility] [address] [place], [place] [address] Consulting Physician Cardiovascular Disease - Cardiology 10/14/24 documented as of this encounter
--- OUTSIDE RECORDS SUMMARY | 2025-04-01 08:52 | XMS_ITS | Encounter Summary ---
Author Organization [facility] Address [address] [place] [address] Phone Care Team Providers Care Master Carpenter Name Role Phone Amauri Raza MD Unavailable Trip Higginbotham MD Unavailable [phone] Ofelia Bundy PAC Unavailable Sabas Gold MD Unavailable [phone] Andre Celis MD Unavailable Emilia Horner MD Primary Care Provider Gabriela Krishnamurthy MD Unavailable Marcial Ceja MD Unavailable Reason for Visit * Reason Comments Medication Refill Encounter Details Date Type Department Care Team (Late st Contact Info) Description 10/16/2023 Refill [facility] - Family Medicine - Normal [address] [facility] [place] [address] [place] [address] Emilia Horner MD [address] [facility] [place] [address] [place] [address] Medication Refill Social History Tobacco Use Types Packs/Day Years Used Date Smoking Tobacco: Never Smokeless Tobacco: Never Alcohol Use Standard Drinks/Week Comments Yes 0 (1 standard drink = 0.6 oz pur e alcohol) Occasional, 1 glass per month [facility] Utilities Answer Date Recorded In the [...] often do you attend chur ch or sikh services? More than 4 times per year 10/08/2023 Do you belong to any clubs o r organizations such as holiness groups, unions, fraternal or athletic groups, or [...] Total Score - Questions 1-9 5 01/12 [facility] - [...] Master's degree (e.g., MA, MS, Carolyn, MEd, LAWN MOWER MECHANIC, MALA) 01/25/2023 Sexually Active Control Partners Comments Not Currently Male Comments No Sex and Gender Information Value Date Recorded Sex Assigned at Not on file Legal Sex Female 3:00 AM PURSE SEINING HAND Gender Identity Not on file Sexual Orientation Not on file documented as of this encounter Miscellaneous Notes * Telephone Encounter - Pao Melo RN - 10/17/2023 11:25 AM PURSE SEINING HAND Rx request in this encounter was identified as a duplicate request for same medication and sig. Pended medication(s) removed for this encounter. The remaining Rx request for this medication(s) will be processed (see other refill encounter). E SEINING HAND documented in this encounter Plan of Treatment [...] documented as of this encounter Care Teams Master Carpenter Relationship Specialty Start Date End Date Emilia Horner MD [address] [address] PCP - General Family Medicine 01/02/19 Amauri Raza MD Consulting Physician Rheumatology 08/05/14 Trip Higginbotham MD [address] [place], [place] [address] Consulting Physician Allergy & Immunology 10/06/14 Ofelia Bundy PAC [address] [place] [address] Physician Chief Green Officer Physician Chief Green Officer 10/06/14 Sabas Gold MD [address] [place] [address] Consulting Physician Gastroenterology 04/01/15 Andre Celis MD [address] [place] [address] Consulting Physician Urology 05/21/18 Gabriela Krishnamurthy MD [address] [facility] [place], [place] [address] Edge Plugger Interventional Cardiology 10/14/24 Marcial Ceja MD [address] [place] [address] [place] [address] Consulting Physician Cardiovascular Disease - Cardiology 10/14/24 documented as of this encounter
--- OUTSIDE RECORDS SUMMARY | 2025-04-01 08:52 | XMS_ITS | Encounter Summary ---
Author Organization [facility] Address [address] [place] [address] Phone Care Team Providers Care Business Development Agent Name Role Phone Amauri Raza MD Unavailable Trip Higginbotham MD Unavailable [phone] Ofelia Bundy PAC Unavailable Sabas Gold MD Unavailable [phone] Andre Celis MD Unavailable Emilia Horner MD Primary Care Provider Gabriela Krishnamurthy MD Unavailable Marcial Ceja MD Unavailable Reason for Visit * Reason Comments Medication Refill Encounter Details Date Type Department Care Team (Late st Contact Info) Description 04/06/2020 Refill [facility] - Gastroenterology - [place] [address] [place] [address] Sabas Gold MD [address] [place] [address] Medication Refill Social History Tobacco [...] on file Legal Sex Female 3:00 AM PROJECT LEAD Gender Identity Not on file Sexual Orientation [...] 19 08/18/2020 08/18/2020 09/07/2020 12:1 8 AM PROJECT LEAD COVID - 19 Comment:COVID swab is negative, [...] documented as of this encounter Care Teams Business Development Agent Relationship Specialty Start Date End Date Emilia Horner MD [address] [address] PCP - General Family Medicine 01/02/19 Amauri Raza MD Consulting Physician Rheumatology 08/05/14 Trip Higginbotham MD [address] [place], [place] [address] Consulting Physician Allergy & Immunology 10/06/14 Ofelia Bundy PAC [address] [place] [address] Physician Corporate Compliance Officer Physician Corporate Compliance Officer 10/06/14 Sabas Gold MD [address] [facility] [place] [address] Consulting Physician Gastroenterology 04/01/15 Andre Celis MD [address] [place] [address] Consulting Physician Urology 05/21/18 Gabriela Krishnamurthy MD [address] [facility] [address] R D Intern Interventional Cardiology 10/14/24 Marcial Ceja MD [address] [facility] [place], [place] [address] Consulting Physician Cardiovascular Disease - Cardiology 10/14/24 documented as of this encounter
[2025-04-01 09:30] LABS: Cholesterol 162 mg/dL (0-200); HDL Direct 46 mg/dL; Triglycerides 191 mg/dL (<150)
[2025-04-01 09:34] LABS: Hemoglobin A1C 6.2 % (<5.7)
[2025-04-01 10:37] LABS: Thyroid Stimulating Hormone 4.540 uIU/mL (0.465-4.680)
== END 2025-04-01 08:30 | disposition home or self-care (01) ==
LOC: ANHLAB 08:30
PROVIDERS: PCP Family Medicine; Visit Provider Family Medicine
DX: E66.9 Obesity, unspecified (principal); R73.03 Prediabetes; E78.5 Hyperlipidemia, unspecified; R73.09 Other abnormal glucose
CPT/HCPCS: 36415; 80061; 83036; 84443

== ENCOUNTER 2025-04-01 14:41 | Outpatient (CLI) | payer MEDICARE, SELFPAY ==
--- NOTE | ~2025-04-01 | MR_ITS ---
MRI of the left hip Clinical history: Pain Technique: Coronal T1-weighted, T2-weighted, and proton-density fat-sat images, and axial T1-weighted and proton-density fat-sat images were acquired through the pelvis. Coronal T2-weighted images and coronal, axial, and sagittal proton- density fat-sat images were acquired through the left hip. Findings: Right hip arthroplasty present with associated susceptibility artifact. There is no fracture or avascular necrosis of the left hip. Bone marrow signals of the left proximal femur and visualized pelvic bones are unremarkable. There is moderate diffuse chondromalacia of the left hip joint. No significant bony productive change. No left hip joint effusion. There is no extensive degenerative change of the left acetabular labrum. Visualized musculature about the pelvis and left hip is unremarkable. No muscle atrophy evident. Visually tendons appear intact. There is mild left greater trochanteric bursitis. IMPRESSION: Mild left greater trochanteric bursitis. 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 Extensive degenerative attenuation of the left acetabular labrum. Right hip arthroplasty. Reviewed, dictated and finalized at [facility]. IMPRESSION: Mild left greater trochanteric bursitis. 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 Extensive degenerative a ttenuation of the left acetabular labrum. Right hip arthroplasty.
== END 2025-04-01 14:42 | disposition home or self-care (01) ==
LOC: MICIMG 14:42
PROVIDERS: PCP Family Medicine; Visit Provider Orthopaedic Surgery
DX: M70.62 Trochanteric bursitis, left hip (principal); M94.252 Chondromalacia, left hip
CPT/HCPCS: 73721

== ENCOUNTER 2025-04-25 11:00 | Outpatient (RCR) | payer MEDICARE, SELFPAY ==
--- NOTE | 2025-03-25 16:45 | OPREHPOC ---
Outpatient Therapy Plan of Care This is a Multidisciplinary Plan of Care that may contain components documented by all disciplines (PT, OT, and ST.) PT Problem 1 PT Problem #1 Knowledge Deficit PT Goal 1 Goal / Goal Update [place] with HEP Target Visit 4 PT Goal 2 Goal / Goal Update Improve hip pain to 2/10 at worst Target Visit 8 PT Problem 2 PT Problem #2 Impaired Strength PT Goal 1 Goal / Goal Update 1. Improve L hip abduction strength to 4/5 to improve lateral stability with gait 2. Improve gavi hip flexion strength to 4+/5 to improve foot clearance with ADLs Target Visit 8 PT Problem 3 PT Problem #3 Impaired Gait PT Goal 1 Goal / Goal Update Patient will ambulate with even stride length bilaterally Target Visit 8
--- NOTE | 2025-03-25 16:47 | PTOPEVAL1 ---
Assessment and note entered by Jaden Ruffin, PT Evaluation Information Assessment Status Evaluation ICD-10 Condition Codes (PT) Pain in left hip M25.552 Onset June 2024 Subjective Information Reports that after meeting with she reports that he is thinking that she may have a torn tendon in her hip. She does get occasional She is scheduled for an MRI later this month on 04/01/25. She has found improvement in exercise in the past including decreased back pain. Reported Pain Level Pain Score 2: Self Report Assessment PT Clinical Summary Patient presents with hip weakness and significant gait deficits. Instructed in use of cane and exercise to improve hip mobility and muscle activation. Patient will benefit from skilled therapy to address deficits to improve stabilization of hip and gait pattern for intermediate card tender pain relief and functional mobility. Plan of Care Interventions Gait Training,Manual Therapy,Neuro Re-education, Therapeutic Activities,Therapeutic Exercise PT Services Indicated Yes Treatment Frequency and 2x/week for 8 visits Duration These treatments will address the objective and functional deficits as defined above. The patient will be advanced safely and appropriately in order for the patient to progress towards his/her prior level of function. Additional exercises will be introduced and as well as a comprehensive home exercise program upon discharge, if needed, ?to ensure carryover of functional gains achieved in the clinic. This treatment plan has been reviewed and agreement upon by the patient.
--- NOTE | 2025-04-22 10:29 | PCPTNOTE ---
Patient cancelled this episode of care secondary to vertigo exacerbation and inability to drive to treatment.
--- NOTE | 2025-04-25 12:51 | OPREHPOC ---
Outpatient Therapy Plan of Care This is a Multidisciplinary Plan of Care that may contain components documented by all disciplines (PT, OT, and ST.) PT Problem 1 PT Problem #1 Knowledge Deficit PT Goal 1 Goal / Goal Update Perry with HEP Target Visit 4 Progress Met PT Goal 2 Goal / Goal Update Improve hip pain to 2/10 at worst Target Visit 8 Progress Met PT Problem 2 PT Problem #2 Impaired Strength PT Goal 1 Goal / Goal Update 1. Improve L hip abduction strength to 4/5 to improve lateral stability with gait 2. Improve gavi hip flexion strength to 4+/5 to improve foot clearance with ADLs Target Visit 8 Progress Met PT Problem 3 PT Problem #3 Impaired Gait PT Goal 1 Goal / Goal Update Patient will ambulate with even stride length bilaterally Target Visit 8 Progress Partially Met
--- NOTE | 2025-04-25 12:51 | PTOPDC ---
Assessment and note entered by Jaden Ruffin, PT Evaluation Information Assessment Status Discharge ICD-10 Condition Codes (PT) Pain in left hip M25.552 Onset June 2024 Subjective Information Patient report that overall she feels the hip is doing much better. States that she has been walking more and still using a cane but has not been limited by pain. Feels that she is ready for discharge to [facility] at this time. Reports that she did have to cancel a visit secondary to dizziness and feeling the room spin with head movement. Reported Pain Level Pain Score 0: Self Report Assessment PT Clinical Summary Patient has made significant strides with hip ROM and strength. Gait has improved. Feels confident and comfortable with [facility] and requests discharge from [facility] at this time. She presented with reports of vertigo today and was assessed for BPPV. Subjective symptoms found in R ear and treated. Patient as strongly encouraged to follow up with MD should any symptoms persist. Plan of Care PT Services Indicated Yes
== END 2025-04-25 15:13 | disposition home or self-care (01) ==
LOC: ANHGOSHPT 11:00
PROVIDERS: PCP Family Medicine; Visit Provider Orthopaedic Surgery
DX: M25.552 Pain in left hip (principal); R53.1 Weakness; H81.11 Benign paroxysmal vertigo, right ear
CPT/HCPCS: 95992; 97110; 97112; 97116; 97140; 97161; 97530

== ENCOUNTER 2025-05-29 13:10 | Observation (INO) | payer MEDICARE, SELFPAY ==
--- OUTSIDE RECORDS SUMMARY | 2024-10-31 05:15 | XMS_ITS ---
Author Organization [facility] Address [address] [place], [place] [address] Care Team Providers Care Clothing Designer Name Role Phone Emilia Hernandez Primary Care Provider Unavailable Andre Celis Unavailable [phone] Tianna Mckeon Unavailable [phone] Encounters Encounter Location Date Provider Diagnosis [facility] [address] [place] Vasquez [place], [place] [id number] 10/31/2024 Tianna Mckeon Plan Of Treatment No Information Progress Notes * Rebekah MERCADODOB:[birth year] (69 yo F)Acc No.[id number]:10/31/2024 Progress Notes Patient: Rebekah WOO Provider: Thaddeus Mckeon NP :1955 A ge:69 Y S ex:Female Date:10/31/2024 Address:[address] [facility], [place], [place] Pcp:Emilia Travis Subjective: * Chief Complaints: * * Medical History: Objective: * Vitals: Assessment: Plan: * Treatment: * Images: * Electronic signature of Cash Mckeon , N.PMariela on 05/29/2025 at 04:54 PM CDT Sign off status: Pending * Provider: Thaddeus Mckeon NP Date: 0 10/31/2024 Generated for Kailyn em/Miguelangel/Rivka on: 1 04:54 PM CDT
--- NOTE | ~2025-05-29 | XR_ITS ---
Examination: XR chest 2V Clinical History: Syncopal episode, WEAKNESS X 1 DAY Comparison: None Technique: PA and Lateral Findings: Cardiomediastinal silhouette normal size and configuration. Lungs clear. No acute bony abnormality. IMPRESSION: 1. No acute cardiopulmonary findings. Reviewed, dictated and finalized at location R.
[2025-05-29 13:12] VITALS: BP 108/60; PULSE 82; RESP 15
--- NOTE | 2025-05-29 13:15 | ECG_ITS ---
Test Date: 2025-05-29 13:17:26 Measurements Intervals [place] Rate: 100 P: 0 VA: 0 QRS: -19 QRSD: 150 T: 30 QT: 430 QTc: 556 Interpretive Statements SINUS RHYTHM INTRAVENTRICULAR CONDUCTION DELAY LEFT VENTRICULAR HYPERTROPHY WITH ST-T CHANGE BORDERLINE T WAVE ABNORMALITY- ANTEROLAT/INF LEADS BASELINE ARTIFACT- I, II, AVR, AVL, AVF, V1-V6 BORDERLINE ECG No previous ECG available for comparison Electronically Signed On 05-29-2025 13:37:16 CDT by Jorge Hernandez D.O.
[2025-05-29 13:51] LABS: Hematocrit 40.5 % (37.0-47.0); Hemoglobin 12.4 g/dL (12.0-15.0); Immature Granulocyte Percent A 1.8 % (0-0.5); Lymphocytes Absolute Auto 0.91 K/mm3 (0.9-3.2); Mean Corpuscular HGB Conc 30.6 g/dl (32-36); Mean Corpuscular Hemoglobin 28.2 pg (26-34); Mean Corpuscular Volume 92.3 fl (80-100); Nucleated Red Blood Cells Absolute Auto 0.000 K/mm3 (0.0-0.012); Nucleated Red Blood Cells Perc 0.0 % (0.0-0.2); Platelet Count Result 238 k/mm3 (150-375); Red Blood Count 4.39 M/mm3 (4.2-5.4); White Blood Count 5.7 K/mm3 (4.5-10.0)
[2025-05-29 14:30] LABS: Alanine Aminotransferase 29 U/L (6-35); Albumin Level 3.5 g/dL (3.5-5.1); Alkaline Phosphatase 58 U/L (38-126); Anion Gap 9 mmol/L (4-12); Aspartate Amino Transferase 33 U/L (14-36); Bilirubin,Total 0.3 mg/dL (0.2-1.3); Blood Urea Nitrogen 17 mg/dL (7-17); Calcium 8.2 mg/dL (8.4-10.2); Carbon Dioxide 24 mmol/L (22-30); Chloride 105 mmol/L (98-107); Estimated CRCL calculation 83 ml/min; Estimated Glomerular Filt Rate > 60; Glucose 163 mg/dL (65-110); Potassium 2.9 mmol/L (3.4-5.0); Sodium 138 mmol/L (137-145); Total Protein 5.9 g/dL (6.3-8.2)
--- NOTE | 2025-05-29 14:46 | ED.SYNCOPE ---
HPI - Syncope General Chief Complaint: Syncope Stated Complaint: syncope Time Seen by Provider: 05/29/25 14:21 History of Present Illness HPI narrative: Pt was at lunch with friends and got up to go to bathroom and felt dizzy and lightheaded. Friend said pt said she did not feel well and told them she had some heaviness in chest. Pt does not remember this statement. Pt went to bathroom and had diarrhea which is not unusual for her. Pt then got up to go back to table and had syncopal episode. On EMS arrival pt was hypotensive and 300 ml bolus initiated and now BP is ok. recently here at [facility] so has been a rough stretch. Pt also has history of intermittent vertigo but this was different. gabe dark or bloody stools or new meds. Related Data Home Medications ?Medication ?Instructions ?Recorded ?Confirmed ?Last Taken ?Type albuterol sulfate 90 mcg/actuation 1 inh inhalation Q4-6H PRN 01/27/25 05/26/25 Unknown History breath activated powder inhaler,sensor antiarthritic combination no.2 900 mg PO 01/27/25 05/26/25 Unknown History mg tablet (glucosamine-chondroitin) cholecalciferol (vitamin D3) 25 50 mcg PO DAILY 01/27/25 05/26/25 Unknown History mcg (1,000 unit) capsule diclofenac sodium 1 % topical gel 2 g topical QID 01/27/25 05/26/25 Unknown History docusate sodium 100 mg capsule 100 mg PO DAILY PRN 01/27/25 05/26/25 Unknown History (Colace) fexofenadine 180 mg tablet 180 mg PO DAILY 01/27/25 05/26/25 Unknown History (Emerita Allergy) fluticasone propionate 50 1 spray intranasal DAILY 01/27/25 05/26/25 Unknown History mcg/actuation nasal spray,suspension (Flonase Allergy Relief) lactobacillus combination no.9 4 4,000 mmu cells PO DAILY 01/27/25 05/26/25 Unknown History billion cell capsule (Adult 50 Plus Probiotic) mecobalamin (vitamin B12) 5,000 5,000 mcg PO DAILY 01/27/25 05/26/25 Unknown History mcg chewable tablet oasis drop .Route 01/27/25 05/26/25 Unknown History vit C 250 mg-vit E 90 mg-zinc 10 1 cap PO BID 01/27/25 05/26/25 Unknown History mg-copper 1 [id number] capsule (Eye Health Vitamin-Mineral) amitriptyline 50 mg tablet 50 mg PO QHS 01/30/25 05/26/25 Unknown History Allergies Allergy/AdvReac Type Severity Reaction Status Date / Time tetracycline Allergy Intermediate Hives Verified 05/20/25 13:23 Review of Systems Review of Systems: All systems reviewed & are unremarkable except as noted in HPI and below PMFSH Past Medical History Medical History Right groin hernia Family History Family History Mother Hypertension Thyroid disorder Father Asthma Heart disease Non Hodgkin's lymphoma Grandparent Cerebrovascular accident Social History Social History (Updated 05/20/25 @ 14:12 by Yolanda Smith CMA) Smoking status: Never smoker Alcohol intake: current Alcohol use details: occasional Substance use: never Current Housing: Decline to Answer Concerned About Future Housing: Decline to Answer Difficulty Paying Gas/Electric Bills: Decline to Answer Difficulty Paying for Meds: Decline to Answer Currently Unemployed: Decline to Answer Education: Decline to Answer Difficulty w/ Childcare or Family Care: Decline to Answer Exam Const: General: healthy appearing and no acute distress Nutritional Appearance: well nourished Orientation/consciousness: patient oriented x3 Limitations: no limitations Eyes: Pupils: Equal, round and reactive pupils present EOM: EOMs intact bilaterally Chest: Chest palpation & inspection: normal inspection of the chest Resp: Effort & Inspection: normal respiratory effort Auscultation: clear to auscultation bilaterally Cardio: Rate: regular rate Rhythm: regular rhythm GI: GI Palp: Yes Soft to palpation and No Tenderness to palpation present (GI) Auscultation: normal bowel sounds Skin: General skin exam: normal color Rashes: no rashes Wounds: no wounds Neuro: General: patient oriented x3, moves all extremities, no focal motor deficits and CN's II-XI intact bilaterally Speech: normal speech Extrem: General: normal to inspection and no clubbing, cyanosis or edema Psych: Mental Status: mental status grossly normal Affect: normal affect Attitude: cooperative Course Vital Signs Vital signs: Vital Signs Pulse Rate 82 05/29/25 13:12 Respiratory Rate 15 05/29/25 13:12 Blood Pressure 108/60 05/29/25 13:12 Pulse Rate 82 05/29/25 13:12 Respiratory Rate 15 05/29/25 13:12 Blood Pressure 108/60 05/29/25 13:12 MDM - Syncope MDM Narrative Medical decision making narrative: will get ekg and labs and monitor. will give iv fluid bolus as well and reassess. Pt has low potassium. kcl rider and po given. discussed with pt and family and agreeable for admission. Discussed with Michelle Roth and agrees to observation Differential Diagnosis Differential diagnosis: Likely syncope due to orthostatic hypotension, vasovagal syncope, complete atrioventricular block and dehydration Lab Data 05/29/25 13:32 05/29/25 13:32 Labs: Lab Results 05/29/25 Range/Units 13:32 WBC 5.7 (4.5-10.0) K/mm3 RBC 4.39 (4.2-5.4) M/mm3 Hgb 12.4 (12.0-15.0) g/dL Hct 40.5 (37.0-47.0) % MCV 92.3 (80-100) fl MCH 28.2 (26-34) pg MCHC 30.6 L (32-36) g/dl RDW 13.2 (11.5-14.5) % Plt Count 238 (150-375) k/mm3 MPV 9.7 (7.4-10.4) fl Immature Gran % (Auto) 1.8 H (0-0.5) % Neut % (Auto) 71.2 (45.5-73.1) % Lymph % (Auto) 16.0 L (18.3-44.2) % King % (Auto) 7.6 (2.6-8.5) % Eos % (Auto) 2.3 (0-4.4) % Baso % (Auto) 1.1 (0.2-1.2) % Lymph # (Auto) 0.91 (0.9-3.2) K/mm3 King # (Auto) 0.4 (0.1-0.6) K/mm3 Eos # (Auto) 0.1 (0-0.3) K/mm3 Baso # (Auto) 0.1 (0.0-0.1) K/mm3 Abs Immat Gran (auto) 0.10 H (0.00-0.031) K/mm3 Absolute Neuts (auto) 4.1 (1.3-6.7) K/mm3 Absolute Nucleated RBC 0.000 (0.0-0.012) K/mm3 Nucleated RBC % 0.0 (0.0-0.2) % Sodium 138 (137-145) mmol/L Potassium 2.9 L (3.4-5.0) mmol/L Chloride 105 (98-107) mmol/L Carbon Dioxide 24 (22-30) mmol/L Anion Gap 9 (4-12) mmol/L BUN 17 (7-17) mg/dL Creatinine 0.62 L (0.7-1.0) mg/dL Estim Creat Clear Calc 83 ml/min Estimated GFR > 60 (59 - ) Glucose 163 H (65-110) mg/dL Calcium 8.2 L (8.4-10.2) mg/dL Total Bilirubin 0.3 (0.2-1.3) mg/dL AST 33 (14-36) U/L ALT 29 (6-35) U/L Alkaline Phosphatase 58 (38-126) U/L Total Protein 5.9 L (6.3-8.2) g/dL Albumin 3.5 (3.5-5.1) g/dL Discharge Plan Discharge Clinical Impression: Syncope, Acute hypokalemia Patient Disposition: Still a Patient Condition: Improved Patient Language: Fijian Prescriptions: No Action fexofenadine [Emerita Allergy] 180 mg tablet 180 mg PO DAILY diclofenac sodium 1 % gel 2 g topical QID Rx Instructions: apply to single elbow, wrist or hand; for hand includes palm/fingers/back of hand fluticasone propionate [Flonase Allergy Relief] 50 mcg/actuation spray,suspension 1 spray intranasal DAILY Rx Instructions: administer into each nostril glucosamine-chondroitin 900 mg tablet PO Adult 50 Plus Probiotic 4 billion cell capsule 4,000 mmu cells PO DAILY Rx Instructions: administer with a meal docusate sodium [Colace] 100 mg capsule 100 mg PO DAILY PRN cholecalciferol (vitamin D3) 25 mcg (1,000 unit) capsule 50 mcg PO DAILY mecobalamin (vitamin B12) 5,000 mcg tablet,chewable 5,000 mcg PO DAILY albuterol sulfate 90 mcg/actuation aero powdr breath act w/sensor 1 inh inhalation Q4-6H PRN Eye Health Vitamin-Mineral 250-90-10-1 mg capsule 1 cap PO BID oasis drop .Route Rx Instructions: one drop in each eye 2x a day budesonide-formoterol [Symbicort] 80-4.5 mcg/actuation HFA aerosol inhaler 1 inh inhalation TID Qty: 10.2 5RF celecoxib [Celebrex] 200 mg capsule 200 mg PO DAILY Qty: 90 1RF esomeprazole magnesium [Nexium] 40 mg capsule,delayed release(DR/EC) 40 mg PO DAILY Qty: 90 1RF fenofibrate 160 mg tablet 160 mg PO DAILY Qty: 90 1RF gabapentin 300 mg capsule 300 mg PO BID Qty: 180 1RF amitriptyline 50 mg tablet 50 mg PO QHS mirabegron [Myrbetriq] 25 mg tablet extended release 24 hr 25 mg PO DAILY Qty: 90 1RF montelukast 10 mg tablet 10 mg PO DAILY Qty: 90 1RF Follow-up/Referrals: Ani Vitale DO [Primary Care Provider, Family Practice]
[2025-05-29] MEDS: POTASSIUM CHLORIDE 20 MEQ ER TABLET 40 MEQ PO (15:18)
[2025-05-29] MEDS: KCL 20 MEQ/SW 100 ML 100 ML 50 MEQ IVPB (15:34)
--- NOTE | 2025-05-29 16:07 | P.HP_ITS ---
H&P: HPI History of Present Illness Date/Time: 05/29/25 16:07 Chief Complaint: Syncope Narrative: 69-year-old female past medical history of vertigo presents the hospital after syncopal event. She states that she was having lunch with her friend and went to the bathroom when she returned she was dizzy and lightheaded and have syncopal event. Per the friend before falling the patient complained of chest heaviness. She states that this episode was different from her vertigo. When EMS arrived the patient was hypotensive in fluid bolus was given. Patient's orthostatics were negative. Patient states that she still feels dizzy. Denies nausea vomiting fever chills. Patient's recently . CBC within normal limits, potassium 2.9, creatinine 0.62, glucose 163, calcium 8.2, chest x-ray shows no acute process. EKG shows sinus rhythm. Patient is being admitted for syncopal workup, potassium was replaced the emergency room. Review of Systems Review of Systems: 12 systems were reviewed and are negativ e except for as per HPI. [facility] Past Medical History Medical History (Updated 05/29/25 @ 23:18 by Michelle Sharma APRN) Hyperlipemia Prediabetes H/O gastroesophageal reflux (GERD) IBS (irritable bowel syndrome) Migraine Arthritis Right groin hernia Surgical History Surgical History (Updated 05/29/25 @ 17:15 by Michelle Sharma APRN) H/O neck surgery 3 discs replaced in neck History of carpal tunnel surgery History of hip surgery H/O knee surgery bilateral Family History Family History Mother Hypertension Thyroid disorder Father Asthma Heart disease Non Hodgkin's lymphoma Grandparent Cerebrovascular accident Social History Social History (Updated 05/20/25 @ 14:12 by Yolanda Smith CMA) Smoking status: Never smoker Alcohol intake: current Alcohol use details: occasional Substance use: never Substance use type: does not use Lack of Transportation: No Lack of Food: Never True Current Housing: I Have Housing Concerned About Future Housing: No Difficulty Paying Gas/Electric Bills: No Difficulty Paying for Meds: No Currently Unemployed: No Education: Master's Degree or Higher Difficulty w/ Childcare or Family Care: No Spiritual care concerns: No Meds Home Medications and Allergies Home Medications ?Medication ?Instructions ?Recorded ?Confirmed ?Type albuterol sulfate 90 mcg/actuation 1 inh inhalation Q4 -6H PRN asthma 01/27/25 05/29/25 History breath activated powder inhaler,sensor antiarthritic combination no.2 900 900 mg PO DAILY@080 0 01/27/25 05/29/25 History mg tablet (glucosamine-chondroitin) budesonide-formoterol HFA 80 1 inh inhalation TID #10. 2 grams 01/27/25 05/29/25 Rx mcg-4.5 mcg/actuation aerosol inhaler (Symbicort) celecoxib 200 mg capsule (Celebrex) 200 mg PO DAILY #9 0 caps 01/27/25 05/29/25 Rx cholecalciferol (vitamin D3) 25 50 mcg PO DAILY 05/29/25 History mcg (1,000 unit) capsule diclofenac sodium 1 % topical gel 2 g topical QID 01/1205/29/25 History docusate sodium 100 mg capsule 100 mg PO DAILY PRN con stipation 01/27/25 History (Colace) esomeprazole magnesium 40 mg 40 mg PO DAILY #90 caps 0 01/27/25 05/29/25 Rx capsule,delayed release (Nexium) fenofibrate 160 mg tablet 160 mg PO DAILY #90 tabs 05/29/25 Rx fexofenadine 180 mg tablet 180 mg PO DAILY 01/27/25 History (Emerita Allergy) fluticasone propionate 50 1 spray intranasal DAILY 05/29/25 History mcg/actuation nasal spray,suspension (Flonase Allergy Relief) gabapentin 300 mg capsule 300 mg PO BID #180 caps 01/1205/29/25 Rx lactobacillus combination no.9 4 4,000 mmu cells PO DA JERRI 01/27/25 05/29/25 History billion cell capsule (Adult 50 Plus Probiotic) mecobalamin (vitamin B12) 5,000 5,000 mcg PO DAILY 05/29/25 History mcg chewable tablet oasis drop 1 drp .Route BID 01/27/25 History amitriptyline 50 mg tablet 50 mg PO QHS 01/30/2505/29 History mirabegron 25 mg tablet,extended 25 mg PO DAILY #90 ta bs 05/05/25 05/29/25 Rx release 24 hr (Myrbetriq) montelukast 10 mg tablet 10 mg PO DAILY #90 tabs 03/0705/29/25 Rx Allergies Allergy/AdvReac Type Severity Reaction Status Date / Time tetracycline Allergy Intermediate Hives Verified 05/29/25 16:40 Vital Signs Vital Signs - 24 hr 05/29/25 13:12 Pulse Rate 82 Respiratory Rate 15 Blood Pressure 108/60 Exam Narrative: General: well appearing, appears stated age. HEENT: normocephalic, atraumatic. Mucous membranes moist. EOMI, PERRLA, bilateral sclera anicteric, no conjunctival injection. Neck supple without JVD, lymphadenopathy, or bruit. Respiratory: clear to ascultation bilaterally. No rales/rhonic/wheezes. Cardiovascular: Regular rate and rhythm, normal S1-S2 upon ascultation. No murmurs, rubs, or clicks. PMI is nondisplaced, capillary refill less than 3 second. Abdomen: Soft, round, no pulsatile masses, nondistended and nontender. No rebound, no guarding. No CVA tenderness, no hepatosplenomegaly. Bowel sounds present to all four quadrants. No high pitch or tinkling sounds, resonant to percussion. Extremities: No cyanosis, clubbing, or edema present. Pulses are palpable 2/2. Active ROM to all four extremities. Neuro: Alert and orientated x 4. PERRLA. Cranial nerves 2-12 intact without focal deficit. Skin: Warm, dry, and intact, without rash, erythema, or lesion. Psych: pleasant, cooperative, normal speech, normal affect, no hallucinations, no dysarthia H&P: Results Labs Labs: Short CBC 05/29/25 Range/Units 13:32 WBC 5.7 (4.5-10.0) K/mm3 Hgb 12.4 (12.0-15.0) g/dL Hct 40.5 (37.0-47.0) % Plt Count 238 (150-375) k/mm3 [facility] 05/29/25 13:32 Sodium 138 Potassium 2.9 L Chloride 105 Carbon Dioxide 24 BUN 17 Creatinine 0.62 L Glucose 163 H Calcium 8.2 L Liver Function 05/29/25 Range/Units 13:32 Total Bilirubin 0.3 (0.2-1.3) mg/dL AST 33 (14-36) U/L ALT 29 (6-35) U/L Alkaline Phosphatase 58 (38-126) U/L Albumin 3.5 (3.5-5.1) g/dL Assessment and Plan Assessment and plan (1) Syncope: Code(s): R55 - Syncope and collapse Status: Acute Assessment and Plan: assistant manager of 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 (3) Hypocalcemia: Code(s): E83.51 - Hypocalcemia Status: Acute Assessment and Plan: Oscal daily (4) Prediabetes: Code(s): R73.03 - Prediabetes Status: Acute Assessment and Plan: A1c 6.2 (5) Hyperlipemia: Code(s): E78.5 - Hyperlipidemia, unspecified Status: Acute Assessment and Plan: Continue fenofibrate (6) Vertigo: Code(s): R42 - Dizziness and giddiness Status: Acute Assessment and Plan: Meclizine (7) Rheumatoid arthritis: Code(s): M06.9 - Rheumatoid arthritis, unspecified Status: Acute Assessment and Plan: Continue home medications Quality VTE Prophylaxis VTE prophylaxis: mechanical ordered and pharmacologic ordered Hospitalist MIPS Advance Care Plan I have confirmed that the patient's Advanced Care Plan is present, code status is documented, or surrogate decision maker is listed in patient medical record.: Yes Medication Reconciliation I have utilized all available resources to obtain, update and review the patients current medications (includes all prescriptions, OTC, herbals, cannabis, and nutritional supplements).: Yes
[2025-05-29 16:15] VITALS: BP 134/70; PULSE 83; RESP 16; TEMP 36.4; O2SAT 97
--- NOTE | 2025-05-29 16:15 | ADMGEN ---
This patient, Rebekah Mercado, was admitted to Medical Room 254-01. Patient/family oriented to hospital policies and general routines including ID bracelet, bed and alarms, visiting hours, pain management, procedures, bathroom and other care routines, personal items, smoking policy, room service/diet, and visiting hours. Information on how to activate the Rapid Response Team has been discussed. Patient/Family are encouraged to report perceived risks to care and to ask questions if they do not understand what they are told or what they should do.
[2025-05-29 16:18] VITALS: BMI 31.5
--- OUTSIDE RECORDS SUMMARY | 2025-05-29 16:52 | XMS_ITS | Encounter Summary ---
Author Organization [facility] Address [address] [place] [address] Phone Care Team Providers Care Education Adviser Name Role Phone Amauri Raza MD Unavailable Trip Higginbotham MD Unavailable [phone] Ofelia Bundy PAC Unavailable Sabas Gold MD Unavailable [phone] Andre Celis MD Unavailable Emilia Horner MD Primary Care Provider Gabriela Krishnamurthy MD Unavailable [phone] Marcial Ceja MD Unavailable Reason for Visit * Reason Comments Medication Refill Encounter Details Date Type Department Care Team (Late st Contact Info) Description 10/02/2021 Refill [facility] - Gastroenterology - [place] [address] [place] [id number] Tigre Urrutia PAC [address] [place] [address] Medication Refill Social History Tobacco Use Types [...] on file 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 No / Unsure 09/20/2021 9:33 AM BLASTING HELPER documented as of this encounter Miscellaneous Notes * Telephone Encounter - Miguelina Cornejo LPN - 10/04/2021 8:42 AM CST Wrong provider TING HELPER documented in this encounter Plan of Treatment [...] documented as of this encounter Care Teams Education Adviser Relationship Specialty Start Date End Date Emilia Horner MD [address] [address] PCP - General Family Medicine 01/02/19 Amarui Raza MD Consulting Physician Rheumatology 08/05/14 Trip Higginbotham MD [address] [place] [address] Consulting Physician Allergy & Immunology 10/06/14 Ofelia Bundy PAC [address] [place] [address] Physician Galvanometer Assembler Physician Galvanometer Assembler 10/06/14 Sabas Gold MD [address] [place] [phone] Consulting Physician Gastroenterology 04/01/15 Andre Celis MD [address] [place] [address] Consulting Physician Urology 05/21/18 Gabriela Krishnamurthy MD [address] [facility] [address] [place] [address] Glove Cutter Interventional Cardiology 10/14/24 Marcial Ceja MD [address] [place] [address] Consulting Physician Cardiovascular Disease - Cardiology 10/14/24 documented as of this encounter
--- OUTSIDE RECORDS SUMMARY | 2025-05-29 16:53 | XMS_ITS | Encounter Summary ---
Author Organization [facility] Address [address] [place] [address] Phone Care Team Providers Care Cross Tie Turner Name Role Phone Amauri Raza MD Unavailable Trip Higginbotham MD Unavailable [phone] Ofelia Bundy PAC Unavailable Sabas Gold MD Unavailable Andre Celis MD Unavailable Emilia Horner MD Primary Care Provider Gabriela Krishnamurthy MD Unavailable Marcial Ceja MD Unavailable Reason for Visit * Reason Comments Medication Refill Encounter Details Date Type Department Care Team (Late st Contact Info) Description 09/06/2021 Refill [facility] - Primary Care - [place] [address] [facility] [address] [place] [address] Emilia Horner MD [address] [facility] [address] [place] [address] Medication Refill Social History Tobacco Use Types [...] on file Legal Sex Female 3:00 AM HARD CANDY SPINNER Gender Identity Not on file Sexual Orientation Not on file COVID-19 Exposure Response Date Recorded In the last month, have you been in contact with someone who was confirmed or suspected to have Coronavirus / COVID-19? No / Unsure 09/08/2021 10:55 AM [place] CANDY SPINNER documented as of this encounter Miscellaneous Notes * Telephone Encounter - Emilia Díaz MD - 09/12/2021 8:43 PM HARD CANDY SPINNER approved CANDY SPINNER * Telephone Encounter - Leigh Ann Macias RN - 09/09/2021 8:53 AM CST Requested Prescriptions Pending Prescriptions Disp Refills ??? fenofibrate 160 MG Tablet [Pharmacy Med Name: FENOFIBRATE 160MG TABLETS] 90 Tablet 1 Sig: TAKE 1 TABLET BY MOUTH DAILY Last refilled date: 03/11/2021 #90/1R STEF: 04/13/2021 NOV: 09/15/2021 (pre-op) Refill pended, please sign/change or refuse as appropriate CANDY SPINNER documented in this encounter Plan of Treatment [...] documented as of this encounter Care Teams Cross Tie Turner Relationship Specialty Start Date End Date Emilia Horner MD [address] [id number] PCP - General Family Medicine 01/02/19 Amauri Raza MD Consulting Physician Rheumatology 08/05/14 Trip Higginbotham MD [address] [place], [place] [address] Consulting Physician Allergy & Immunology 10/06/14 Ofelia Bundy PAC [address] [place] [address] Physician Diamond Wheel Edger Physician Diamond Wheel Edger 10/06/14 Sabas Gold MD [address] [place] [address] Consulting Physician Gastroenterology 04/01/15 Andre Celis MD [address] [place] [address] Consulting Physician Urology 05/21/18 Gabriela Krishnamurthy MD [address] [place] [address] Sap Sd Analyst Interventional Cardiology 10/14/24 Marcial Ceja MD [address] [place] [address] Consulting Physician Cardiovascular Disease - Cardiology 10/14/24 documented as of this encounter
--- OUTSIDE RECORDS SUMMARY | 2025-05-29 16:53 | XMS_ITS | Encounter Summary ---
Author Organization [facility] Address [address] [place] [address] Phone Care Team Providers Care Nuclear Plant Technical Advisor Name Role Phone Amauri Raza MD Unavailable Trip Higginbotham MD Unavailable [phone] Ofelia Bundy PAC Unavailable [phone] Sabas Gold MD Unavailable [phone] Andre Celis MD Unavailable Emilia Horner MD Primary Care Provider Gabriela Krishnamurthy MD Unavailable Marcial Ceja MD Unavailable Reason for Visit * Reason Comments Medication Refill Encounter Details Date Type Department Care Team (Late st Contact Info) Description 12/05/2022 Refill [facility] - Primary Care - Normal [address] [facility] [address] [place] [address] Emilia Horner MD [address] [facility] [address] [place] [address] Medication Refill Social History Tobacco Use Types [...] on file 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 Gender Identity Not on file Sexual [...] Dept 01/14/22 Office Visit Emilia Horner MD [facility] [place] 01/07/22 Office Visit Fred Johnson APRN, AIRCRAFT INSTRUMENT ENGINEER [facility] [place] 12/24/21 Office Visit Fred Johnson APRN, AIRCRAFT INSTRUMENT ENGINEER [facility] Normal [place] Showing recent visits within past 365 days and meeting all other requirements Future Appointments Date Type Provider Dept 01/25/23 Appointment Emilia Horner MD [facility] [place] Showing future appointments within next 90 days and meeting all other requirements * Telephone Encounter - Meghan Tejeda - 12/08/2022 12:27 PM CDT Appointment made 01/25 * Telephone Encounter - Wilma Jones - 12/06/2022 1:18 PM CDT Patient's in [place] until first week in December and will [...] documented as of this encounter Care Teams Nuclear Plant Technical Advisor Relationship Specialty Start Date End Date Emilia Horner MD [address] [address] PCP - General Family Medicine 01/02/19 Amauri Raza MD Consulting Physician Rheumatology 08/05/14 Trip Higginbotham MD [address] [place], [place] [address] Consulting Physician Allergy & Immunology 10/06/14 Ofelia Bundy PAC [address] [place] [address] Physician Candle Wrapper Physician Candle Wrapper 10/06/14 Sabas Gold MD [address] [place] [phone] Consulting Physician Gastroenterology 04/01/15 Andre Celis MD [address] [place] [address] Consulting Physician Urology 05/21/18 Gabriela Krishnamurthy MD [address] [facility] [place] [address] Education And Development Manager Interventional Cardiology 10/14/24 Marcial Ceja MD [address] [facility] [place] [address] Consulting Physician Cardiovascular Disease - Cardiology 10/14/24 documented as of this encounter
--- OUTSIDE RECORDS SUMMARY | 2025-05-29 16:53 | XMS_ITS | Encounter Summary ---
Author Organization [facility] Address [address] [place] [address] Phone Care Team Providers Care Customer Marketing Assistant Name Role Phone Amauri Raza MD Unavailable Trip Higginbotham MD Unavailable [phone] Ofelia Bundy PAC Unavailable Sabas Gold MD Unavailable [phone] Andre Celis MD Unavailable Emilia Horner MD Primary Care Provider Gabriela Krishnamurthy MD Unavailable Marcial Ceja MD Unavailable Reason for Visit * Reason Onset Date Comments Medication Refill 03/11/2021 Gabapentin Medication Refill 03/12/2021 Gabapentin 300 MG Encounter Details Date Type Department Care Team (Late st Contact Info) Description 03/11/2021 Refill [facility] - Primary Care - Normal [address] [facility] [address] [place] [address] Emilia Horner MD [address] [facility] [address] [place] [address] Medication Refill (Gabapentin ); Medication Refill (Gabapentin [...] on file Legal Sex Female 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 CAR 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 Gender Identity Not on file Sexual Orientation [...] 12:16 AM CDT COVID - 19 03/27/2024 03/27/202403/2703/27/2024 12:4 2 PM CDT Assessment Noted Time PHQ-9 Depression Total Score: 1 07/17/20 20 9:00 AM DINING CAR 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 documented as of this encounter Care Teams Customer Marketing Assistant Relationship Specialty Start Date End Date Emilia Horner MD [address] [address] PCP - General Family Medicine 01/02/19 Amauri Raza MD Consulting Physician Rheumatology 08/05/14 Trip Higginbotham MD [address] [place] [address] Consulting Physician Allergy & Immunology 10/06/14 Ofelia Bundy PAC [address] [place] [address] Physician Stone Circular Sawyer Physician Stone Circular Sawyer 10/06/14 Sabas Gold MD [address] [place] [phone] Consulting Physician Gastroenterology 04/01/15 Andre Celis MD [address] [place] [address] Consulting Physician Urology 05/21/18 Gabriela Krishnamurthy MD [address] [place], [place] [address] Broacher Interventional Cardiology 10/14/24 Marcial Ceja MD [address] [place], [place] [address] Consulting Physician Cardiovascular Disease - Cardiology 10/14/24 documented as of this encounter
--- OUTSIDE RECORDS SUMMARY | 2025-05-29 16:53 | XMS_ITS | Encounter Summary ---
Author Organization [facility] Address [address] [place] [address] Phone Care Team Providers Care Cotton Farmer Name Role Phone Amauri Raza MD Unavailable [phone] Trip Higginbotham MD Unavailable [phone] Ofelia Bundy PAC Unavailable Sabas Gold MD Unavailable [phone] Andre Celis MD Unavailable Emilia Horner MD Primary Care Provider Gabriela Krishnamurthy MD Unavailable Marcial Ceja MD Unavailable Reason for Visit * Reason Comments Medication Refill Encounter Details Date Type Department Care Team (Late st Contact Info) Description 12/23/2022 Refill [facility] - Primary Care - Normal [address] [facility] [address] [place] [address] Emilia Horner MD [address] 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 [...] Dept 01/14/22 Office Visit Emilia Horner MD [facility] Normal [place] 01/07/22 Office Visit Fred Johnson, EFFICIENCY MANAGER, COMMERCIAL PROPERTY ADMINISTRATOR [facility] [place] Showing recent visits within past 365 days and meeting all other requirements Future Appointments Date Type Provider Dept 01/25/23 Appointment Emilia Horner MD [facility] Normal [place] Showing future appointments within [...] documented as of this encounter Care Teams Cotton Farmer Relationship Specialty Start Date End Date Emilia Horner MD [address] [address] PCP - General Family Medicine 01/02/19 Amauri Raza MD Consulting Physician Rheumatology 08/05/14 Trip Higginbotham MD [address] [place] [address] Consulting Physician Allergy & Immunology 10/06/14 Ofelia Bundy PAC [address] [place] [address] Physician Furniture Rental Consultant Physician Furniture Rental Consultant 10/06/14 Sabas Gold MD [address] [place] [address] Consulting Physician Gastroenterology 04/01/15 Andre Celis MD [address] [place] [address] Consulting Physician Urology 05/21/18 Gabriela Krishnamurthy MD [address] [place], [place] [address] Hockey Player Interventional Cardiology 10/14/24 Marcial Ceja MD [address] [place] [address] Consulting Physician Cardiovascular Disease - Cardiology 10/14/24 documented as of this encounter
--- OUTSIDE RECORDS SUMMARY | 2025-05-29 16:53 | XMS_ITS | Clinical Summary ---
Author Organization [facility] Address [address] [place] [address] Phone Care Team Providers Care Wireless Internet Installer Name Role Phone Amauri Raza MD Unavailable Trip Higginbotham MD Unavailable [phone] Ofelia Bundy PAC Unavailable [phone] Sabas Gold MD Unavailable [phone] Andre Celis MD Unavailable Emilia Horner [...] 08/12/2024 Assessment & Plan (08/12/2024 2:00 PM INFORMATION SECURITY MANAGER): Repeat EKG in clinic showed a QTC [...] Hyperlipidemia Assessment & Plan (08/12/2024 2:00 PM INFORMATION SECURITY MANAGER): Stable continue current management 2D echo from 2019 reviewed results below. Resolved Problems Problem Noted Date Diagnosed Date Resolved Date Low blood potassium 05/16/2017 05/22/20 18 Left foot pain 07/02/2014 05/22/2018 Overview (12/30/2014): Saw Dr Stock Asthma 07/22/2011 07/22/2011 Mild intermittent asthma 07/22/201104/2011 H/O endoscopy 04/14/2011 05/05/2016 Overview (03/06/2013): Hudson Muhammad MD OA (osteoarthritis) 11/12/2010 07/22/20 11 Fibromyalgia 11/12/2010 07/22/2011 Asthma 02/25/2010 Immunizations Immunization Administration Dates Next Due Covid-19, [...] Occasionally have a couple glasses if wine. [facility] Utilities Answer Date Recorded In the past 12 months has [employer], gas, oil, or water [employer] threatened to shut off services in your [...] often do you attend chur ch or anglican services? More than 4 times per year 10/08/2023 Do you belong to any clubs o r organizations such as bahai groups, unions, fraternal or athletic groups, or [...] Total Score - Questions 1-9 5 01/12 [facility] - Occupational Stress Questionnaire Answer Date [...] place to sleep or slept in a half-way (including now)? No 10/08/2023 Education Answer Date Recorded What is the highest level of school you have completed or the highest degree you have received? Master's degree (e.g., MA, MS, Carolny, MEd, STORE STOCK HELP, MALA) 01/25/2023 Sexually Active Control Partners Comments Not Currently Male Comments No Sex and Gender Information Value Date Recorded Sex Assigned at Not on file Legal Sex Female 3:00 AM INFORMATION SECURITY MANAGER Gender Identity Not on file Sexual Orientation Not on file Last Filed Vital Signs Vital Sign Reading Time Taken Comments Blood Pressure 132/74 09/20/2024 10:28 AM INFORMATION SECURITY MANAGER Pulse 96 09/20/2024 10:28 AM INFORMATION SECURITY MANAGER Temperature 36.7 C (98 F) 07/29/2024 9:55 AM INFORMATION SECURITY MANAGER Respiratory Rate 20 09/20/2024 10:28 AM INFORMATION SECURITY MANAGER Oxygen Saturation 93% 08/12/2024 1:09 PM INFORMATION SECURITY MANAGER Inhaled Oxygen Concentration - - Weight 95.3 kg (210 lb) 09/20/2024 10:28 AM INFORMATION SECURITY MANAGER Height 170.2 cm (5' 7) 09/20/2024 10:28 AM INFORMATION SECURITY MANAGER Body Mass Index 32.89 09/20/2024 10:28 AM INFORMATION SECURITY MANAGER Plan of Treatment Health Maintenance Due Date Last Done Comments Zoster Immunization (1 of 2) 1972 Cologuard 1998 Immunochemical Fecal Occult Blood 1998 Medicare Initial AWV G0438 04/13/2010 Respiratory Syncytial Virus (RSV) Immunization (Adult) (1 - Risk 60-74 years 1-dose series) 2013 Mammogram 09/05/2023 09/05/2022, 10/2021, 08/03/2020, Additional history exists Td Immunization Every 10 Years (Adults With 1 Tdap) 12/28/2023 12/27/2013, 08/14/2002 DEXA Bone Density 09/05/2024 09/05/2022, , 08/03/2020, Additional history exists Colonoscopy 02/09/2025 02/09/2015, 01/13, 01/12/2010, Additional history exists Colorectal Cancer Screening 02/09/2025 Influenza Immunization (#1) 04/14/202505/14, 08/28/2023, 06/16/2021, Additional history exists SARS-COV-2 Immunization ( season) 2025 06/01/2022, 12/22/2021, 06/16/2021, Additional history exists Pneumococcal Immunization (50+ [...] this topic Medical Devices Implanted Type Area Wallpaper Inspector Device Identifier Shelf Expiration Date Model / Serial / Lot Injector Bone Cement 1x40 High Viscosity - [id number] Implanted:Qty: 1 on 02/03/2020 by Trip Rodriguez DO at [facility] IMPLANT Left: Knee [employer] 11/12/2023 [id number] / / [id number] Injector Bone Cement 1x40 W/Gentamicin - [id number] Implanted:Qty: 1 on 02/03/2020 by Trip Rodriguez DO at [facility] IMPLANT Left: Knee [employer] 07/13/2021 [id number] / / [id number] Component Patellar 7.5mm 32mm Glenna Ii - [id number] Implanted:Qty: 1 on 02/03/2020 by Trip Rodriguez DO at [facility] IMPLANT Left: Knee [employer] 12/16/2029 [id number] / / [id number] Baseplate Tib Glenna Ii 3 Left Knee Ti Nonporous - [id number] Implanted:Qty: 1 on 02/03/2020 by Trip Rodriguez DO at [facility] IMPLANT Left: Knee [employer] 07/05/2029 [id number] / / [id number] Component Fem 5 Knee Left Post Stab Glenna Ii Legion Spc Oxinium - [id number] Implanted:Qty: 1 on 02/03/2020 by Trip Rodriguez DO at [facility] IMPLANT Left: Knee [employer] 10/06/2029 [id number] / / [id number] Insert Tib 3-4 9mm Knee Xlpe Post Stabilized High Flexion Legion - [id number] Implanted:Qty: 1 on 02/03/2020 by Trip Rodriguez DO at [facility] IMPLANT Left: Knee [employer] 01/31/2028 [id number] / / [id number] Procedures Procedure Name Priority Date/Time Associated Diagnosis Comments HEPATITIS C ANTIBODY Routine 02/07/2023 2:50 PM CDT Encounter for hepatitis C screening test for low risk patient BONE DENSITY GENERIC 09/05/2022 12:00 AM INFORMATION SECURITY MANAGER MAMMOGRAM BILATERAL GENERIC 09/05/2022 12:00 AM INFORMATION SECURITY MANAGER HM COLONOSCOPY Routine 02/09/2015 from Last 3 Months or Most Recently Relevant to Health Maintenance Results * HEPATITIS C ANTIBODY (02/07/2023 2:50 PM CDT) hepatitis C antibody 0.05 <1 S/CO [facility] ARCH [id number] 02/08/2023 10:38 AM CDT [facility] Comment: Signal/Cutoff ratio < 0.79 is Nondetected Signal/Cutoff ratio 0.80-0.99 is Grayzone Signal/Cutoff ratio > 0.99 is Detected Supplemental assays are recommended if signal/cutoff ratio is >/=1.00. Signal/cutoff ratio result >/= 5.00 is 97% predictive of positivity for recombinant immunoblot assay (RIBA) and will be reported to the [place] Department of Public Health as required. Blood Venipuncture / Unknown 02/07/2023 2:50 PM CDT 02/07/2023 3:00 PM CDT us Emilia Horner MD CHEMISTRY ORDERABLES Final Result Performing Organization Address City/[facility]/ZIP Co de Phone Number [facility] [address] [place] [address], [place] * BONE DENSITY GENERIC SCAN (09/05/2022 12:00 AM INFORMATION SECURITY MANAGER) 09/05/2022 us Provider Scan IMG DEXA ORDERABLES Final Result SCAN * MAMMOGRAM BILATERAL MISCELLANEOUS (09/05/2022 12:00 AM INFORMATION SECURITY MANAGER) 09/05/2022 us Provider Scan IMG MAMMO ORDERABLES Final Resul t Performing Organization Address City/[facility]/ZIP Co de Phone Number SCAN * HM [...] 6:56 PM 04/27/2016 1:50 PM Care Teams Wireless Internet Installer Relationship Specialty Start Date End Date Emilia Horner MD [address] [place] [address] PCP - General Family Medicine 01/02/19 Amauri Raza MD Consulting Physician Rheumatology 08/05/14 Trip Higginbotham MD [address] [place] [address] Consulting Physician Allergy & Immunology 10/06/14 Ofelia Bundy PAC [address] [place] [address] Physician Senior Engineering Manager Physician Senior Engineering Manager 10/06/14 Sabas Gold MD [address] [place] [address] Consulting Physician Gastroenterology 04/01/15 Andre Celis MD [address] [place] [address] Consulting Physician Urology 05/21/18 Gabriela Krishnamurthy MD [address] [facility] [place] [address] Soda Drier Feeder Interventional Cardiology 10/14/24 Marcial Ceja MD [address] [facility] [place], [place] [address] Consulting Physician Cardiovascular Disease - Cardiology 10/14/24
--- OUTSIDE RECORDS SUMMARY | 2025-05-29 16:53 | XMS_ITS | Encounter Summary ---
Author Organization [facility] Address [address] [place] [address] Phone Care Team Providers Care News Production Supervisor Name Role Phone Amauri Raza MD Unavailable Trip Higginbotham MD Unavailable [phone] Ofelia Bundy PAC Unavailable Sabas Gold MD Unavailable [phone] Andre Celis MD Unavailable Emilia Horner MD Primary Care Provider Gabriela Krishnamurthy MD Unavailable Marcial Ceja MD Unavailable Encounter Details Date Type Department Care Team (Late st Contact Info) Description 09/06/2022 Telephone [facility] - Primary Care - Normal [address] [facility] [address] [place], [place] [address] Emilia Horner MD [address] [facility] [address] [place] [address] Social History Tobacco Use Types Packs/Day Years [...] on file Legal Sex Female 3:00 AM CARDIAC/VASCULAR SONOGRAPHER Gender Identity Not on file Sexual Orientation Not on file documented as of this encounter Miscellaneous Notes * Telephone Encounter - Emilia Horner MD - 09/06/2022 11:06 AM CARDIAC/VASCULAR SONOGRAPHER Benign mammogram. Continue recommended screening. IAC/VASCULAR SONOGRAPHER * Telephone Encounter - Thu Butts - 09/06/2022 10:35 AM CST Faxed received from [facility] with mammo results and is placed in Dr. Horner inbox for review. IAC/VASCULAR SONOGRAPHER documented in this encounter Plan of Treatment Not on file documented as of this encounter Visit Diagnoses Not on filedocumented in this encounter Additional Health Concerns Infection Onset Date Last Indicated Resolved Time COVID - 19 03/27/2024 03/27/2024 03/27/2024 12:4 2 PM CDT Assessment Noted Time PHQ-9 Depression Total Score: 1 04/13/20 21 10:00 AM CDT documented as of this encounter Care Teams News Production Supervisor Relationship Specialty Start Date End Date Emilia Horner MD [address] [address] PCP - General Family Medicine 01/02/19 Amauri Raza MD Consulting Physician Rheumatology 08/05/14 Trip Higginbotham MD [address] [place] [address] Consulting Physician Allergy & Immunology 10/06/14 Ofelia Bundy PAC [address] [place] [address] Physician Macadam Raker Physician Macadam Raker 10/06/14 Sabas Gold MD [address] [place] [phone] Consulting Physician Gastroenterology 04/01/15 Andre Celis MD [address] [place] [facility] [place] [address] Consulting Physician Urology 05/21/18 Gabriela Krishnamurthy MD [address] [facility] [place] [address] Professional Volleyball Player Interventional Cardiology 10/14/24 Marcial Ceja MD [address] [facility], [place] [address] Consulting Physician Cardiovascular Disease - Cardiology 10/14/24 documented as of this encounter
--- OUTSIDE RECORDS SUMMARY | 2025-05-29 16:53 | XMS_ITS | Encounter Summary ---
Author Organization [facility] Address [address] [place] [address] Phone Care Team Providers Care Fish Cleaner Machine Tender Name Role Phone Amauri Raza MD Unavailable Trip Higginbotham MD Unavailable [phone] Ofelia Bundy PAC Unavailable Sabas Gold MD Unavailable [phone] Andre Celis MD Unavailable Emilia Horner MD Primary Care Provider Gabriela Krishnamurthy MD Unavailable Marcial Ceja MD Unavailable Reason for Visit * Reason Comments Medication Refill Encounter Details Date Type Department Care Team (Late st Contact Info) Description 01/20/2024 Refill [facility] - Primary Care - Normal [address] [facility] [address] [place] [address] Emilia Horner MD [address] [facility] [address] [place] [address] Medication Refill Social History Tobacco Use Types Packs/Day Years Used Date Smoking Tobacco: Never Smokeless Tobacco: Never Alcohol Use Standard Drinks/Week Comments Yes 0 (1 standard drink = 0.6 oz pur e alcohol) Occasional, 1 glass per month [facility] Utilities Answer Date Recorded In the past 12 months has th e electric, gas, oil, or water company [...] often do you attend chur ch or yazidism services? More than 4 times per year 10/08/2023 Do you belong to any clubs o r organizations such as baptism groups, unions, fraternal or athletic groups, or [...] Total Score - Questions 1-9 5 01/12 [facility] - [...] place to sleep or slept in a long-term (including now)? No 10/08/2023 Education Answer Date Recorded What is the highest level of school you have completed or the highest degree you have received? Master's degree (e.g., MA, MS, Carolyn, MEd, ATOMIC PROCESS ENGINEER, MALA) 01/25/2023 Sexually Active Control Partners Comments Not Currently Male Comments No Sex and Gender Information Value Date Recorded Sex Assigned at Not on file Legal Sex Female 3:00 AM FIREARMS INSPECTOR Gender Identity Not on file Sexual Orientation Not on file documented as of this encounter Miscellaneous Notes * Telephone Encounter - Zora Patel RN - 01/22/2024 8:52 AM CDT Fenofibrate refilled and signed per [facility] chronic medication standing order for Pediatric and Adult Patients. Gabapentin failed the protocol. Order pended All Patient Appointments Provider Department Dept Phone 02/08/2024 1:00 PM Emilia Horner [facility] - Family Medicine - Normal [phone] Requested Prescriptions Pending Prescriptions Disp Refills fenofibrate [...] Yaya 08/28/23 Office Visit Noemi Forbes APRN, MANAGER MALL [facility] [place] 01/25/23 Office Visit [...] [place] 08/28/23 Office Visit Noemi Forbes APRN, MANAGER MALL [facility] [place] 01/25/23 Office Visit Emilia Horner MD [facility] Normal [place] Showing recent visits within past 365 days and meeting all other requirements Future Appointments Date Type Provider Dept 02/08/24 Appointment Emilia Horner MD [facility] Normal [place] Showing future appointments [...] documented as of this encounter Care Teams Fish Cleaner Machine Tender Relationship Specialty Start Date End Date Emilia Horner MD [address] [address] PCP - General Family Medicine 01/02/19 Amauri Raza MD Consulting Physician Rheumatology 08/05/14 Trip Higginbotham MD [address] [place] [address] Consulting Physician Allergy & Immunology 10/06/14 Ofelia Bundy PAC [address] [facility] [address] Physician Mine Exploration Engineer Physician Mine Exploration Engineer 10/06/14 Sabas Gold MD [address] [place] [address] Consulting Physician Gastroenterology 04/01/15 Andre Celis MD [address] [place] [address] Consulting Physician Urology 05/21/18 Gabriela Krishnamurthy MD [address] [facility] [place] [address] Rn Dialysis Interventional Cardiology 10/14/24 Marcial Ceja MD [address] [facility] [place], [place] [address] Consulting Physician Cardiovascular Disease - Cardiology 10/14/24 documented as of this encounter
--- OUTSIDE RECORDS SUMMARY | 2025-05-29 16:53 | XMS_ITS | Encounter Summary ---
Author Organization [facility] Address [address] [place] [address] Phone Care Team Providers Care Blast Furnace Checker Name Role Phone Amauri Raza MD Unavailable [phone] Trip Higginbotham MD Unavailable [phone] Ofelia Bundy PAC Unavailable [phone] Sabas Gold MD Unavailable [phone] Andre Celis MD Unavailable Emilia Horner MD Primary Care Provider Gabriela Krishnamurthy MD Unavailable Marcial Ceja MD Unavailable Reason for Visit * Reason Comments Medication Refill Encounter Details Date Type Department Care Team (Late st Contact Info) Description 10/05/2021 Refill [facility] - [facility]ology - [place] [address] [place] [address] Sabas Gold MD [address] [place] [address] Medication Refill Social History Tobacco [...] on file Legal Sex Female 3:00 AM OFFICE ADMINISTRATION INSTRUCTOR Gender Identity Not on file Sexual Orientation Not on file COVID-19 Exposure Response Date Recorded In the last month, have you been in contact with someone who was confirmed or suspected to have Coronavirus / COVID-19? No / Unsure 09/20/2021 9:33 AM OFFICE ADMINISTRATION INSTRUCTOR documented as of this encounter Plan of [...] documented as of this encounter Care Teams Blast Furnace Checker Relationship Specialty Start Date End Date Emilia Horner MD [address] [place] [address] PCP - General Family Medicine 01/02/19 Amauri Raza MD Consulting Physician Rheumatology 08/05/14 Trip Higginbotham MD [address] [place] [address] Consulting Physician Allergy & Immunology 10/06/14 Ofelia Bundy PAC [address] [place] [address] Physician Business Technology Professor Physician Business Technology Professor 10/06/14 Sabas Gold MD [address] [place] [address] Consulting Physician Gastroenterology 04/01/15 Andre Celis MD [address] [place] [address] Consulting Physician Urology 05/21/18 Gabriela Krishnamurthy MD [address] [place], [place] [address] Crystal Slicer Interventional Cardiology 10/14/24 Marcial Ceja MD [address] [place], [place] [address] Consulting Physician Cardiovascular Disease - Cardiology 10/14/24 documented as of this encounter
--- OUTSIDE RECORDS SUMMARY | 2025-05-29 16:53 | XMS_ITS | Encounter Summary ---
Author Organization [facility] Address [address] [place] [address] Phone Care Team Providers Care Campaign Management Specialist Name Role Phone Amauri Raza MD Unavailable Trip Higginbotham MD Unavailable [phone] Ofelia Bundy PAC Unavailable Sabas Gold MD Unavailable [phone] Andre Celis MD Unavailable Emilia Horner MD Primary Care Provider [phone] Gabriela Krishnamurthy MD Unavailable [phone] Marcial Ceja MD Unavailable Reason for Visit * Reason Comments Medication Refill Encounter Details Date Type Department Care Team (Late st Contact Info) Description 11/24/2021 Refill [facility] - [place] [address] [place] [address] [place] [address] Sabas Gold MD [address] [place] [address] Medication Refill Social History Tobacco [...] on file Legal Sex Female 3:00 AM ASSURANCE AUDITOR Gender Identity Not on file Sexual Orientation [...] documented as of this encounter Care Teams Campaign Management Specialist Relationship Specialty Start Date End Date Emilia Horner MD [address] [address] PCP - General Family Medicine 01/02/19 Amauri Raza MD Consulting Physician Rheumatology 08/05/14 Trip Higginbotham MD [address] [place] [address] Consulting Physician Allergy & Immunology 10/06/14 Ofelia Bundy PAC [address] [place] [address] Physician Deli Manager Physician Deli Manager 10/06/14 Sabas Gold MD [address] [place] [address] Consulting Physician Gastroenterology 04/01/15 Andre Celis MD [address] [place] [address] Consulting Physician Urology 05/21/18 Gabriela Krishnamurthy MD [address] [place] [address] Migratory Farm Hand Interventional Cardiology 10/14/24 Marcial Ceja MD [address] [place] [address] Consulting Physician Cardiovascular Disease - Cardiology 10/14/24 documented as of this encounter
--- OUTSIDE RECORDS SUMMARY | 2025-05-29 16:53 | XMS_ITS | Encounter Summary ---
Author Organization [facility] Address [address] [place] [address] Phone Care Team Providers Care Engravings Polisher Name Role Phone Amauri Raza MD Unavailable Trip Higginbotham MD Unavailable [phone] Ofelia Bundy PAC Unavailable Sabas Gold MD Unavailable [phone] Andre Celis MD Unavailable Emilia Horner MD Primary Care Provider [phone] Gabriela Krishnamurthy MD Unavailable [phone] Marcial Ceja MD Unavailable Reason for Visit * Reason Comments Medication Refill Encounter Details Date Type Department Care Team (Late st Contact Info) Description 08/06/2020 Refill [facility] - Primary Care - [place] [address] [facility] [address] [place], [place] [address] Latesha Suresh APRN, SALESPERSON SHOES [address] [facility] [address] [place] [address] Medication Refill Social History Tobacco Use Types [...] on file Legal Sex Female 3:00 AM [employer]ER [employer] Gender Identity Not on file Sexual Orientation Not on file COVID-19 Exposure Response Date Recorded In the last month, have you been in contact with someone who was confirmed or suspected to have Coronavirus / COVID-19? No / Unsure 07/17/2020 8:11 AM TE[employer]ER [employer]OL documented as of this encounter Miscellaneous Notes * Telephone Encounter - Latesha Suresh APN, CNP - 08/11/2020 11:04 AM CST Medication refilled. [employer] * Telephone Encounter - Yamila Hooper - [...] Medical Group - Family Medicine - Normal Emilia Díaz MD 5 months ago Injury of right middle finger, subsequent encounter [facility] - Family Medicine - Normal Latesha Suresh APN, CNP 7 months ago Preop examination [facility] Family Medicine - Emilia Kay MD 7 months ago Paronychia of finger, right [facility] Family Medicine - Normal Noemi Forbes APN, SALESPERSON SHOES 10 months ago Other iron deficiency anemia [facility] Medicine - Emilia Kay MD Upcoming Appointments HEAT TREAT PULLER - Recent and Past Visits Recent Visits Date Type Provider Dept 07/17/20 Office Visit Emilia Díaz MD [facility] [place] 02/13/20 Office Visit Latesha Suresh APN, SALESPERSON SHOES [facility] [place] 01/13/20 Office Visit Emilia Díaz MD [facility] [place] 12/27/19 Office Visit Noemi Forbes APN, SALESPERSON SHOES [facility] [place] 09/20/19 Office Visit Emilia Díaz MD [facility] [place] 08/28/19 Office Visit Leigh Ann Gaona APN, SALESPERSON SHOES [facility] [place] 05/24/19 Office Visit Emilia Díaz MD [facility] [place] Showing recent visits within past 460 days with a meds authorizing provider and meeting all other requirements Future Appointments No visits were found meeting these conditions. Showing future appointments within next 90 days with a meds authorizing provider and meeting all other requirements [employer] documented in this encounter Plan of Treatment Not on file documented as of this encounter Visit Diagnoses Not on filedocumented in this encounter Additional Health Concerns Infection Onset Date Last Indicated Resolved Time COVID - 19 08/18/2020 08/18/2020 09/07/2020 12:1 8 AM [employer] COVID - 19 Comment:COVID swab is negative, removed COVID flag per ED MD order 10/02/2020 10/02/2020 10/02/2020 5:[address] COVID - 19 01/07/2022 01/07/2022 01/27/2022 12:1 6 AM CDT COVID - 19 Confirmed 02/28/2022 02/28/2022 022 12:16 AM CDT COVID - 19 03/27/2024 03/27/2024 03/27/2024 12:4 2 PM CDT Assessment Noted Time PHQ-9 Depression Total Score: 1 07/17/20 20 9:00 AM [employer] documented as of this encounter Care Teams Engravings Polisher Relationship Specialty Start Date End Date Emilia Horner MD [address] [address] PCP - General Family Medicine 01/02/19 Amauri Raza MD Consulting Physician Rheumatology 08/05/14 Trip Higginbotham MD [address] [place] [address] Consulting Physician Allergy & Immunology 10/06/14 Ofelia Bundy PAC [address] [place] [address] Physician Multifocal Lens Assembler Physician Multifocal Lens Assembler 10/06/14 Sabas Gold MD [address] [place] [address] Consulting Physician Gastroenterology 04/01/15 Andre Celis MD [address] [place] [address] Consulting Physician Urology 05/21/18 Gabriela Krishnamurthy MD [address] [place], [place] [address] Hemodialysis Rn Interventional Cardiology 10/14/24 Marcial Ceja MD [address] [place] [address] Consulting Physician Cardiovascular Disease - Cardiology 10/14/24 documented as of this encounter
--- OUTSIDE RECORDS SUMMARY | 2025-05-29 16:53 | XMS_ITS | Encounter Summary ---
Author Organization [facility] Address [address] [place] [address] Phone Care Team Providers Care Belt Line Feeder Name Role Phone Amauri Raza MD Unavailable [phone] Trip Higginbotham MD Unavailable [phone] Ofelia Bundy PAC Unavailable Sabas Gold MD Unavailable [phone] Andre Celis MD Unavailable Emilia Horner MD Primary Care Provider Gabriela Krishnamurthy MD Unavailable [phone] Marcial Ceja MD Unavailable Reason for Visit * Reason Comments Medication Refill Encounter Details Date Type Department Care Team (Late st Contact Info) Description 10/16/2023 Refill [facility] - Primary Care - Normal [address] [facility] [address] [place] [address] Emilia Horner MD [address] [facility] [address] [place] [address] Medication Refill Social History Tobacco Use Types Packs/Day Years Used Date Smoking Tobacco: Never Smokeless Tobacco: Never Alcohol Use Standard Drinks/Week Comments Yes 0 (1 standard drink = 0.6 oz pur e alcohol) Occasional, 1 glass per month [facility] Utilities Answer Date Recorded In the [...] often do you attend chur ch or latter day services? More than 4 times per year 10/08/2023 Do you belong to any clubs o r organizations such as jainism groups, unions, fraternal or athletic groups, or [...] Total Score - Questions 1-9 5 01/12 [facility] - Occupational Stress [...] place to sleep or slept in a long term (including now)? No 10/08/2023 Education Answer Date Recorded What is the highest level of school you have completed or the highest degree you have received? Master's degree (e.g., MA, MS, Carolyn, MEd, FORENSIC PHOTOGRAPHER, MALA) 01/25/2023 Sexually Active Control Partners Comments Not Currently Male Comments No Sex and Gender Information Value Date Recorded Sex Assigned at Not on file Legal Sex Female 3:00 AM POLYSOMNOGRAPHIC TECH Gender Identity Not on file Sexual Orientation Not on file documented as of this encounter Miscellaneous Notes * Telephone Encounter - Pao Melo RN - 10/17/2023 11:25 AM POLYSOMNOGRAPHIC TECH Rx request in this encounter was identified as a duplicate request for same medication and sig. Pended medication(s) removed for this encounter. The remaining Rx request for this medication(s) will be processed (see other refill encounter). SOMNOGRAPHIC TECH documented in this encounter Plan of Treatment [...] documented as of this encounter Care Teams Belt Line Feeder Relationship Specialty Start Date End Date Emilia Horner MD [address] [address] PCP - General Family Medicine 01/02/19 Amauri Raza MD Consulting Physician Rheumatology 08/05/14 Trip Higginbotham MD [address] [place] [address] Consulting Physician Allergy & Immunology 10/06/14 Ofelia Bundy PAC [address] [place] [address] Physician Supervisory It Specialist Physician Supervisory It Specialist 10/06/14 Sabas Gold MD [address] [place] [address] Consulting Physician Gastroenterology 04/01/15 Andre Celis MD [address] [place] [address] Consulting Physician Urology 05/21/18 Gabriela Krishnamurthy MD [address] [facility] [place], [place] [address] Jack Machine Operator Interventional Cardiology 10/14/24 Marcial Ceja MD [address] [facility] [place] [address] Consulting Physician Cardiovascular Disease - Cardiology 10/14/24 documented as of this encounter
--- OUTSIDE RECORDS SUMMARY | 2025-05-29 16:53 | XMS_ITS | Encounter Summary ---
Author Organization [facility] Address [address] [place] [address] Phone Care Team Providers Care Flare Breaker Name Role Phone Amauri Raza MD Unavailable Trip Higginbotham MD Unavailable [phone] Ofelia Bundy PAC Unavailable Sabas Gold MD Unavailable [phone] Andre Celis MD Unavailable Emilia Horner MD Primary Care Provider Gabriela Krishnamurthy MD Unavailable Marcial Ceaj MD Unavailable Reason for Visit * Reason Comments Medication Refill Encounter Details Date Type Department Care Team (Late st Contact Info) Description 10/06/2021 Refill [facility] - Primary Care - Normal [address] [facility] [address] [place] [address] Emilia Horner MD [address] [facility] [address] [place] [address] Medication Refill Social History Tobacco Use Types [...] on file Legal Sex Female 3:00 AM HUMAN RESOURCES EXECUTIVE Gender Identity Not on file Sexual Orientation Not on file COVID-19 Exposure Response Date Recorded In the last month, have you been in contact with someone who was confirmed or suspected to have Coronavirus / COVID-19? No / Unsure 09/20/2021 9:33 AM HUMAN RESOURCES EXECUTIVE documented as of this encounter Miscellaneous Notes * Telephone Encounter - Latesha Suresh APRN, CNP - 10/08/2021 10:40 AM CST (I am covering for Dr. Díaz who is away from the office today.) Medication refilled. N RESOURCES EXECUTIVE * Telephone Encounter - Yamila Elliott RN - 10/08/2021 10:06 AM HUMAN RESOURCES EXECUTIVE Medication failed the protocol, cannot be delegated, [...] Dept 09/20/21 Office Visit Fred Johnson APRN, CHEMICAL LABORATORY CHIEF [facility] [place] 04/13/21 Office Visit Emilia Díaz MD [facility] [place] 10/30/20 Office Visit Emilia Díaz MD [facility] Normal [place] Showing recent visits within past 365 days and meeting all other requirements Future Appointments Date Type Provider Dept 10/13/21 Appointment Emilia Díaz MD [facility] [place] Showing future appointments within next 90 days and meeting all other requirements N RESOURCES EXECUTIVE documented in this encounter Plan of Treatment [...] documented as of this encounter Care Teams Flare Breaker Relationship Specialty Start Date End Date Emilia Horner MD [address] [place] [address] PCP - General Family Medicine 01/02/19 Amauri Raza MD Consulting Physician Rheumatology 08/05/14 Trip Higginbotham MD [address] [place] [address] Consulting Physician Allergy & Immunology 10/06/14 Ofelia Bundy PAC [address] [facility] [address] Physician Underground Heavy Equipment Operator Physician Underground Heavy Equipment Operator 10/06/14 Sabas Gold MD [address] [facility] [place] [address] Consulting Physician Gastroenterology 04/01/15 Andre Celis MD [address] [place] [address] Consulting Physician Urology 05/21/18 Gabriela Krishnamurthy MD [address] [facility] [place], [place] [address] Bar Attendant Interventional Cardiology 10/14/24 Marcial Ceja MD [address] [facility] [place], [place] [address] Consulting Physician Cardiovascular Disease - Cardiology 10/14/24 documented as of this encounter
--- OUTSIDE RECORDS SUMMARY | 2025-05-29 16:53 | XMS_ITS | Encounter Summary ---
Author Organization [facility] Address [address] [place] [address] Phone Care Team Providers Care Enamel Drier Name Role Phone Amauri Raza MD Unavailable Trip Higginbotham MD Unavailable [phone] Ofelia Bundy PAC Unavailable Sabas Gold MD Unavailable [phone] Andre Celis MD Unavailable Emilia Horner MD Primary Care Provider Gabriela Krishnamurthy MD Unavailable Marcial Ceja MD Unavailable Reason for Visit * Reason Comments Medication Refill Encounter Details Date Type Department Care Team (Late st Contact Info) Description 11/18/2020 Refill [facility] - Gastroenterology - [place] [address] [place] [address] Sabas Gold MD [address] [place] [address] Medication Refill Social History Tobacco [...] on file Legal Sex Female 3:00 AM LIGHTER Gender Identity Not on file Sexual Orientation [...] Total Score: 1 07/17/20 20 9:00 AM LIGHTER documented as of this encounter Care Teams Enamel Drier Relationship Specialty Start Date End Date Emilia Horner MD [address] [address] PCP - General Family Medicine 01/02/19 Amauri Raza MD Consulting Physician Rheumatology 08/05/14 Tirp Higginbotham MD [address] [place] [address] Consulting Physician Allergy & Immunology 10/06/14 Ofelia Bundy PAC [address] [place] [address] Physician Clinical Dental Technician Physician Clinical Dental Technician 10/06/14 Sabas Gold MD [address] [place] [address] Consulting Physician Gastroenterology 04/01/15 Andre Celis MD [address] [place] [address] Consulting Physician Urology 05/21/18 Gabriela Krishnamurthy MD [address] [place] [address] Garage Helper Interventional Cardiology 10/14/24 Marcial Ceja MD [address] [place] [address] Consulting Physician Cardiovascular Disease - Cardiology 10/14/24 documented as of this encounter
--- OUTSIDE RECORDS SUMMARY | 2025-05-29 16:53 | XMS_ITS | Encounter Summary ---
Author Organization [facility] Address [address] [place] [address] Phone Care Team Providers Care Concrete Precast Moulder Name Role Phone Amauri Raza MD Unavailable [phone] Trip Higginbotham MD Unavailable [phone] Ofelia Bundy PAC Unavailable [phone] Sabas Gold MD Unavailable [phone] Andre Celis MD Unavailable Emilia Horner MD Primary Care Provider Gabriela Krishnamurthy MD Unavailable [phone] Marcial Ceja MD Unavailable Reason for Visit * Reason Comments Medication Refill Encounter Details Date Type Department Care Team (Late st Contact Info) Description 03/25/2023 Refill [facility] - Primary Care - Normal [place] [address] [facility] [address] [place] [address] Noemi Forbes APRN, SAMANTHA [address] [facility] [address] [place] [address] Medication Refill Social History Tobacco Use Types [...] Master's degree (e.g., MA, MS, Carolyn, MEd, MOTOR VEHICLE REPRESENTATIVE, MALA) 01/25/2023 Sexually Active Control Partners Comments Not Currently Male Comments No Sex and Gender Information Value Date Recorded Sex Assigned at Not on file Legal Sex Female 3:00 AM CROP ADJUSTER Gender Identity Not on file Sexual Orientation [...] documented as of this encounter Care Teams Concrete Precast Moulder Relationship Specialty Start Date End Date Emilia Horner MD [address] [address] PCP - General Family Medicine 01/02/19 Amauri Raza MD Consulting Physician Rheumatology 08/05/14 Trip Higginbotham MD [address] [place] [address] Consulting Physician Allergy & Immunology 10/06/14 Ofelia Bundy PAC [address] [place] [address] Physician Implementation Consultant Physician Implementation Consultant 10/06/14 Sabas Gold MD [address] [place] [address] Consulting Physician Gastroenterology 04/01/15 Andre Celis MD [address] [place] [address] Consulting Physician Urology 05/21/18 Gabriela Krishnamurthy MD [address] [facility] [place], [place] [address] Cement Storage Worker Interventional Cardiology 10/14/24 Marcial Ceja MD [address] [facility] [place], [place] [address] Consulting Physician Cardiovascular Disease - Cardiology 10/14/24 documented as of this encounter
--- OUTSIDE RECORDS SUMMARY | 2025-05-29 16:53 | XMS_ITS | Encounter Summary ---
Author Organization [facility] Address [address] [place] [address] Phone Care Team Providers Care Cadet Deck Name Role Phone Amauri Raza MD Unavailable Trip Higginbotham MD Unavailable [phone] Ofelia Bundy PAC Unavailable Sabas Gold MD Unavailable [phone] Andre Celis MD Unavailable Emilia Horner MD Primary Care Provider Gabriela Krishnamurthy MD Unavailable [phone] Marcial Ceja MD Unavailable Reason for Visit * Reason Comments Medication Refill Encounter Details Date Type Department Care Team (Late st Contact Info) Description 01/08/2021 Refill [facility] - Primary Care - Normal [address] [facility] [address] [place] [address] Emilia Horner MD [address] [facility] [address] [place] [address] Medication Refill Social History Tobacco Use Types [...] on file Legal Sex Female 3:00 AM AIR DEFENSE CONTROL OFFICER Gender Identity Not on file Sexual Orientation [...] 2 months ago Inflammatory arthritis [facility] - Family Medicine - Normal Emilia Díaz MD 6 months ago Encounter for general adult medical examination without abnormal findings [facility] - Family Medicine - Normal Emilia Díaz MD 11 months ago Injury of right middle finger, subsequent encounter [facility] - Family Medicine - Normal Latesha Suresh APN, SULFATE DRIER MACHINE OPERATOR 1 year ago Preop examination [facility] - Family Medicine - Emilia Kay MD 1 year ago Paronychia of finger, right [facility] Family Medicine - Normal Noemi Forbes APN, SULFATE DRIER MACHINE OPERATOR Upcoming Appointments Future Appointments In 2 days Trip Rodriguez, [facility] - [place] BUILDING PERFORMANCE CONSULTANT - Recent and Past Visits Recent Visits Date Type Provider Dept 10/30/20 Office Visit Emilia Díaz MD [facility] [place] 07/17/20 Office Visit Emilia Díaz MD [facility] [place] 02/13/20 Office Visit Latesha Suresh APN, SULFATE DRIER MACHINE OPERATOR [facility] [place] 01/13/20 Office Visit Emilia Díaz MD [facility] [place] 12/27/19 Office Visit Noemi Forbes APN, SULFATE DRIER MACHINE OPERATOR [facility] [place] Showing recent visits [...] CDT COVID - 19 Confirmed 02/28/2022 02/28/2022 08 022 12:16 AM CDT COVID - 19 03/27/2024 03/27/2024 03/27/2024 12:4 2 PM CDT Assessment Noted Time PHQ-9 Depression Total Score: 1 07/17/20 20 9:00 AM AIR DEFENSE CONTROL OFFICER documented as of this encounter Care Teams Cadet Deck Relationship Specialty Start Date End Date Emilia Horner MD [address] [place] [address] PCP - General Family Medicine 01/02/19 Amauri Raza MD Consulting Physician Rheumatology 08/05/14 Trip Higginbotham MD [address] [place], [place] [address] Consulting Physician Allergy & Immunology 10/06/14 Ofelia Bundy PAC [address] [place] [address] Physician Airplane Engineer Physician Airplane Engineer 10/06/14 Sabas Gold MD [address] [facility] [place] [address] Consulting Physician Gastroenterology 04/01/15 Andre Celis MD [address] [place] [address] Consulting Physician Urology 05/21/18 Gabriela Krishnamurthy MD [address] [place] [address] Hvac R Instructor Interventional Cardiology 10/14/24 Marcial Ceja MD [address] [facility] [place], [place] [address] Consulting Physician Cardiovascular Disease - Cardiology 10/14/24 documented as of this encounter
--- OUTSIDE RECORDS SUMMARY | 2025-05-29 16:53 | XMS_ITS | Encounter Summary ---
Author Organization [facility] Address [address] [place] [address] Phone Care Team Providers Care Indirect Sales Representative Name Role Phone Amauri Raza MD Unavailable Trip Higginbotham MD Unavailable [phone] Ofelia Bundy PAC Unavailable Sabas Gold MD Unavailable [phone] Andre Celis MD Unavailable Emilia Horner MD Primary Care Provider [phone] Gabriela Krishnamurthy MD Unavailable [phone] Marcial Ceja MD Unavailable Encounter Details Date Type Department Care Team (Late st Contact Info) Description 08/28/2023 Telephone [facility] - Primary Care - Normal [address] [facility] [address] [place], [place] [address] Noemi Forbes APRN, ASSEMBLER MUSICAL INSTRUMENTS [address] [facility] [address] [place] [address] Social History Tobacco Use Types Packs/Day Years [...] Master's degree (e.g., MA, MS, Carolyn, MEd, HAND SILVERING SUPERVISOR, MALA) 01/25/2023 Sexually Active Control Partners Comments Not Currently Male Comments No Sex and Gender Information Value Date Recorded Sex Assigned at Not on file Legal Sex Female 3:00 AM WELL LOGGING CAPTAIN MUD ANALYSIS Gender Identity Not on file Sexual Orientation [...] documented as of this encounter Care Teams Indirect Sales Representative Relationship Specialty Start Date End Date Emilia Horner MD [address] [address] PCP - General Family Medicine 01/02/19 Amauri Raza MD Consulting Physician Rheumatology 08/05/14 Trip Higginbotham MD [address] [place] [address] Consulting Physician Allergy & Immunology 10/06/14 Ofelia Bundy PAC [address] [place] [address] Physician Licensed Real Estate Broker Physician Licensed Real Estate Broker 10/06/14 Sabas Gold MD [address] [place] [address] Consulting Physician Gastroenterology 04/01/15 Andre Celis MD [address] [place] [address] Consulting Physician Urology 05/21/18 Gabriela Krishnamurthy MD [address] [facility] [place] [address] Pesticide Control Inspector Interventional Cardiology 10/14/24 Marcial Ceja MD [address] [place] [address] Consulting Physician Cardiovascular Disease - Cardiology 10/14/24 documented as of this encounter
--- OUTSIDE RECORDS SUMMARY | 2025-05-29 16:53 | XMS_ITS | Encounter Summary ---
Author Organization [facility] Address [address] [place] [address] Phone Care Team Providers Care Executive Meeting Manager Name Role Phone Amauri Raza MD Unavailable [phone] Trip Higginbotham MD Unavailable [phone] Ofelia Bundy PAC Unavailable Sabas Gold MD Unavailable [phone] Andre Celis MD Unavailable Emilia Horner MD Primary Care Provider Gabriela Krishnamurthy MD Unavailable Marcial Ceja MD Unavailable Encounter Details Date Type Department Care Team (Late st Contact Info) Description 08/18/2020 Lab Requisition [facility] [address] [place] [address] Renetta Schofield APRN, SHERIFF'S OFFICER [address] [place], [place] [address] Contact with and (suspected) exposure to other [...] on file Legal Sex Female 3:00 AM TEST DRIVER Gender Identity Not on file Sexual Orientation Not on file COVID-19 Exposure Response Date Recorded In the last month, have you been in contact with someone who was confirmed or suspected to have Coronavirus / COVID-19? Yes 08/21/2020 10:03 AM TEST DRIVER documented as of this encounter Plan of Treatment Not on file documented as of this encounter Procedures Procedure Name Priority Date/Time Associated Diagnosis Comments SARS-COV-2 BY MOLECULAR Routine 08/18/2020 9:55 AM TEST DRIVER Contact with and (suspected) exposure to other viral communicable diseases documented in this encounter Results * SARS-COV-2 BY MOLECULAR (08/18/2020 9:55 AM TEST DRIVER) SARSCOV2 NOT DETECTED (Referen ce Range for this test is Not Detected ) [facility] THERMOFISHER FAST DX 08/19/2020 3:34 AM TEST DRIVER [facility] Comment:This test was perfor med by a PCR method. Other NASAL STRUCTURE / Unknown Non-Phlebotomy Collection / Unknown 08/18/2020 9:55 AM TEST DRIVER 08/18/2020 10:38 AM TEST DRIVER Narrative [facility] - 08/19/2020 3:34 AM TEST DRIVER Authorized Fact Sheets about this test for providers and patients are available at: https://www.fda.gov/medical-devices/jdjpwavrw-jfblarsznq-gntvntu-devices/emergen cy-us e-authorizations us Renetta Schofield APRN, CNP MICROBIOLOGY - GENERAL OR DERABLES Final Result [facility] [address] [place] [address], [place] documented in this encounter Visit Diagnoses Diagnosis Contact with and (suspected) exposure to other viral communicable diseases documented in this encounter Additional Health Concerns Infection Onset Date Last Indicated Resolved Time COVID - 19 08/18/2020 08/18/2020 09/07/2020 12:1 8 AM TEST DRIVER COVID - 19 Comment:COVID swab is negative, removed COVID flag per ED MD order 10/02/2020 10/02/2020 10/02/2020 5:[address] COVID - 19 01/07/2022 01/07/2022 01/27/2022 12:1 6 AM CDT COVID - 19 Confirmed 02/28/2022 02/28/2022 022 12:16 AM CDT COVID - 19 03/27/2024 03/27/2024 03/27/2024 12:4 2 PM CDT Assessment Noted Time PHQ-9 Depression Total Score: 1 07/17/20 20 9:00 AM TEST DRIVER documented as of this encounter Care Teams Executive Meeting Manager Relationship Specialty Start Date End Date Emilia Horner MD [address] [address] PCP - General Family Medicine 01/02/19 Amauri Raza MD Consulting Physician Rheumatology 08/05/14 Trip Higginbotham MD [address] [place] [address] Consulting Physician Allergy & Immunology 10/06/14 Ofelia Bundy PAC [address] [place] [address] Physician Handicraft Or Hobby Shop Manager Physician Handicraft Or Hobby Shop Manager 10/06/14 Sabas Gold MD [address] [place] [address] Consulting Physician Gastroenterology 04/01/15 Andre Celis MD [address] [place] [address] Consulting Physician Urology 05/21/18 Gabriela Krishnamurthy MD [address] [facility] [place] [address] Sales Program Manager Interventional Cardiology 10/14/24 Marcial Ceja MD [address] [facility] [place], [place] [address] Consulting Physician Cardiovascular Disease - Cardiology 10/14/24 documented as of this encounter
--- OUTSIDE RECORDS SUMMARY | 2025-05-29 16:53 | XMS_ITS | Encounter Summary ---
Author Organization [facility] Address [address] [place] [address] Phone Care Team Providers Care Flag Car Driver Name Role Phone Amauri Raza MD Unavailable Trip Higginbotham MD Unavailable [phone] Ofelia Bundy PAC Unavailable Sabas Gold MD Unavailable [phone] Andre Celsi MD Unavailable Emilia Horner MD Primary Care Provider Gabriela Krishnamurthy MD Unavailable Marcial Ceja MD Unavailable Reason for Visit * Reason Comments Medication Refill amitriptyline Encounter Details Date Type Department Care Team (Late st Contact Info) Description 10/10/2020 Refill [facility] - Primary Care - Normal [address] [facility] [address] [place] [address] Emilia Horner MD [address] [facility] [address] [place] [address] Medication Refill (amitriptyline) Social History Tobacco Use [...] on file Legal Sex Female 3:00 AM SHOVEL HANDLE ASSEMBLER Gender Identity Not on file Sexual Orientation Not on file COVID-19 Exposure Response Date Recorded In the last month, have you been in contact with someone who was confirmed or suspected to have Coronavirus / COVID-19? No / Unsure 10/02/2020 2:19 AM SHOVEL HANDLE ASSEMBLER documented as of this encounter Miscellaneous Notes * Telephone Encounter - Emilia Díaz MD - 10/10/2020 10:50 PM SHOVEL HANDLE ASSEMBLER approved EL HANDLE ASSEMBLER * Telephone Encounter - Elizabeth Meza - 10/10/2020 5:23 PM CST Requested Prescriptions Pending Prescriptions Disp Refills ??? amitriptyline (ELAVIL) 50 MG Tablet [Pharmacy Med Name: AMITRIPTYLINE 50MG TABLETS] 90 Tablet 0 Sig: TAKE 1 TABLET BY MOUTH EVERY NIGHT Last Refilled - 07/17/2020, #90/0 Last Appt - 07/17/2020 Future Appt - None Labs - n/a EL HANDLE ASSEMBLER documented in this encounter Plan of Treatment [...] Total Score: 1 07/17/20 20 9:00 AM SHOVEL HANDLE ASSEMBLER documented as of this encounter Care Teams Flag Car Driver Relationship Specialty Start Date End Date Emilia Horner MD [address] [address] PCP - General Family Medicine 01/02/19 Amauri Raza MD Consulting Physician Rheumatology 08/05/14 Trip Higginbotham MD [address] [place], [place] [address] Consulting Physician Allergy & Immunology 10/06/14 Ofelia Bundy PAC [address] [place] [address] Physician Neon Sign Worker Physician Neon Sign Worker 10/06/14 Sabas Gold MD [address] [place] [address] Consulting Physician Gastroenterology 04/01/15 Andre Celis MD [address] [place] [address] Consulting Physician Urology 05/21/18 Gabriela Krishnamurthy MD [address] [place], [place] [address] Copier Repair Technician Interventional Cardiology 10/14/24 Marcial Ceja MD [address] [place], [place] [address] Consulting Physician Cardiovascular Disease - Cardiology 10/14/24 documented as of this encounter
--- OUTSIDE RECORDS SUMMARY | 2025-05-29 16:53 | XMS_ITS | Encounter Summary ---
Author Organization [facility] Address [address] [place] [address] Phone Care Team Providers Care Payroll Tax Specialist Name Role Phone Amauri Raza MD Unavailable [phone] Trip Higginbotham MD Unavailable [phone] Ofelia Bundy PAC Unavailable Sabas Gold MD Unavailable [phone] Andre Celis MD Unavailable Emilia Horner MD Primary Care Provider Gabriela Krishnamurthy MD Unavailable Marcial Ceja MD Unavailable Reason for Visit * Reason Comments Medication Refill Encounter Details Date Type Department Care Team (Late st Contact Info) Description 12/28/2021 Refill [facility] - Gastroenterology - [place] [address] [place] [address] [place] [address] Sabas Gold MD [address] [place] [address] Medication Refill Social History Tobacco [...] on file 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 Gender Identity Not on file Sexual [...] documented as of this encounter Care Teams Payroll Tax Specialist Relationship Specialty Start Date End Date Emilia Horner MD [address] [facility] [place] [address] [place] [address] PCP - General Family Medicine 01/02/19 Amauri Raza MD Consulting Physician Rheumatology 08/05/14 Trip Higginbotham MD [address] [place] [address] Consulting Physician Allergy & Immunology 10/06/14 Ofelia Bundy PAC [address] [place] [address] Physician Cork Grinder Physician Cork Grinder 10/06/14 Sabas Gold MD [address] [place] [address] Consulting Physician Gastroenterology 04/01/15 Andre Celis MD [address] [place] [address] Consulting Physician Urology 05/21/18 Gabriela Krishnamurthy MD [address] [place] [address] Speeder Frame Tender Interventional Cardiology 10/14/24 Marcial Ceja MD [address] [facility] [place], [place] [address] Consulting Physician Cardiovascular Disease - Cardiology 10/14/24 documented as of this encounter
--- OUTSIDE RECORDS SUMMARY | 2025-05-29 16:53 | XMS_ITS | Encounter Summary ---
Author Organization [facility] Address [address] [place] [address] Phone Care Team Providers Care Manager Merchandising Name Role Phone Amauri Raza MD Unavailable [phone] Trip Higginbotham MD Unavailable [phone] Ofelia Bundy PAC Unavailable [phone] Sabas Gold MD Unavailable [phone] Andre Celis MD Unavailable Emilia Horner MD Primary Care Provider [phone] Gabriela Krishnamurthy MD Unavailable Marcial Ceja MD Unavailable Reason for Visit * Reason Onset Date Comments Pre-Operative Exam 07/31/2023 Encounter Details Date Type Department Care Team (Late st Contact Info) Description 07/31/2023 Telephone [facility] - Primary Care - Normal [address] [facility] [address] [place], [place] [address] Emilia Horner MD [address] 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 Trip Rodriguez Diagnosis: right knee osteoarthritis Procedure Name: Right total knee arthroplasty Facility: [facility] Anesthesia: spinal Pre-op testing: CBC, CMP, Urinalysis and EKG Fax # for results & clearance: ICAL LIBRARIAN documented in this encounter Plan of Treatment [...] as of this encounter Care Teams Manager Merchandising Relationship Specialty Start Date End Date Emilia Horner MD [address] [facility] [address] [place] [address] PCP - General Family Medicine 01/02/19 Amauri Raza MD Consulting Physician Rheumatology 08/05/14 Trip Higginbotham MD [address] [place], [place] [address] Consulting Physician Allergy & Immunology 10/06/14 Ofelia Bundy PAC [address] [place] [address] Physician Race Engine Builder Physician Race Engine Builder 10/06/14 Sabas Gold MD [address] [place] [address] Consulting Physician Gastroenterology 04/01/15 Andre Celis MD [address] [place] [phone] Consulting Physician Urology 05/21/18 Gabriela Krishnamurthy MD [address] [facility] [address] Meat Grading Machine Operator Interventional Cardiology 10/14/24 Marcial Ceja MD [address] [place] [address] Consulting Physician Cardiovascular Disease - Cardiology 10/14/24 documented as of this encounter
--- OUTSIDE RECORDS SUMMARY | 2025-05-29 16:54 | XMS_ITS | Clinical Summary ---
Author Organization [facility] Nica Diamond Address [address] [place] [address] Care Team Providers Care Disaster Recovery Specialist Name Role Phone StaciebunnyPam nugentna Millicent Primary Care Provider [phone] Allergies Active Allergy Reactions Criticality Noted Date [...] daily. 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 Gender Identity Not on file Sexual [...] st Contact Info) Description 07/24/2025 11:45 AM HEALTH INSPECTOR Office Visit [facility] Oncology and Hematology - [place] [address] [facility] [address] [place] [address] [place] [address] Kory Franco MD [address] [facility] [place] [address] Health Maintenance Due Date Last [...] Cancer Screening 02/09/2025 INFLUENZA VACCINE (#1) 2025 4, 08/28/2023, 06/16/2021, Additional history exists OSTEOPOROSIS SCREENING 08/03/2025 08/03/2020, 2013 PNEUMOCOCCAL VACCINE 50+ YEARS Completed 07/17/2020 , 05/24/2019 [facility] Address: [facility] [address] [place] [address] Care Teams Disaster Recovery Specialist Relationship Specialty Start Date End Date Ani Vitale DO [address] [facility] [address] [place] [address] PCP - General Family Practice 01/02/25
--- OUTSIDE RECORDS SUMMARY | 2025-05-29 16:54 | XMS_ITS | Patient Health Record ---
Author Organization Amada Vanegas [facility] Address [address] [place], [place] [address] Care Team Providers Care Security Administrator Name Role Phone Emilia Hernandez Primary Care Provider Unavailable Andre Celis Unavailable [phone] Tianna Mckeon Unavailable Allergies Allergen (clinical drug [...] Active B Complex Vitamins Orally A ctive [place] 3-6-9 Complex Orally Active NexIUM 40 MG [...] Status Risk Notes Problem Frequency of micturition (757483137) Frequency of micturition (R35.0) Active confirmed Problem Urge incontinence of urine (12578269) Urge incontinence (N39.41) Active confirmed Problem Postmenopausal atrophic vaginitis (14386631) Postmenopausal atrophic vaginitis (N95.2) Active confirmed Problem Nocturia (654450404) Nocturia (R35.1) Active confirmed Problem Urgent desire to urinate (44161539) Urgency of urination (R39.15) Active confirmed Problem Female stress incontinence (63403595) Female stress incontinence (625.6) Inactive confirmed Problem Urge incontinence of urine (64895191) Urge incontinence (788.31) Inactive confirmed Problem Urinary frequency (834542814) Urinary frequency (788.41) Inactive confirmed Problem Nocturia (247547761) Nocturia (788.43) Inactive confirmed Problem Urgent desire to urinate (17466838) Urgency of urination (788.63) Inactive confirmed Encounters Encounter Location Date Provider Diagnosis [facility] [address] [place] [id number] 10/21/2024 Andre Leak Urgency of urination R39.15 [...] [employer] [address] [place] [address] [id number] Rebekah Mercado Self - patient is the insured Medical (General) History Medical History History ICD Code hysterectomy tonsillectomy Arthritis asthma Esophageal reflux fibromyalgia Hiatal hernia hyperlipidemia meniscal tear low hemoglobin Surgical History Surgery Date(Month/Year) foot surgery tonsillectomy knee surgery carpal tunnel release inguinal hernia repair hysterectomy, abdominal knee arthroscopy iron infusion R knee replacement 2023
[2025-05-29] MEDS: SODIUM CHLORIDE 0.9% IV 1,000 ML 125 ML IV CONT (17:23)
[2025-05-29 20:00] VITALS: BP 139/72; PULSE 86; PULSE 87; RESP 18; TEMP 36.6; O2SAT 97
[2025-05-29] MEDS: AMITRIPTYLINE HCL 25 MG TABLET 50 MG PO (20:14)
[2025-05-29 20:38] VITALS: BP 147/73; PULSE 91; RESP 18; TEMP 36.3; O2SAT 96
[2025-05-29 20:39] VITALS: BP 162/74; PULSE 93; RESP 18; TEMP 36.4; O2SAT 95
[2025-05-29 21:09] LABS: Toxigenic C. Diff NEGATIVE (NEGATIVE)
[2025-05-29] MEDS: MELATONIN 5 MG TABLET PO (21:57)
[2025-05-29 22:00] VITALS: BP 139/72; PULSE 87; RESP 18; TEMP 36.6; O2SAT 97
[2025-05-30] VITALS (17 sets, daily range): BP systolic 129–151; BP diastolic 57–79; PULSE 76–91; RESP 14–18; TEMP 36.4–36.8; O2SAT 94–98
--- NOTE | 2025-05-30 | ECHO_ITS ---
Patient Info Name: Rebekah Mercado Age: 69 years : 1955 Gender: Female Ht: 67 in Wt: 201 lbs BSA: 2.11 m2 HR: 78 bpm BP: 137 / 67 mmHg Technical Quality: Good Exam Date: 05/30/2025 11:29 AM Patient Status: unknown Admit Date: 05/29/2025 Exam Type: CA echo doppler w bubble study Complete two-dimensional, color flow and Doppler transthoracic echocardiogram is performed with agitated saline. Staff Referring Physician: Wade Peacock III Counterintelligence Analyst: Santiago Mccauley III Attending Provider: Darlyn Vela Contrast/Agitated Saline Contrast/Ag. Saline: Agitated Saline Amount: 12.00 ml Administered By: Santiago Mccauley III Existing IV Access: Yes IV Access Condition: patent with no signs of infiltration Summary 1. Normal LV size, [id number]-pr-awrlawxh LVH, normal LV systolic function, ejection fraction calculated at 58%. Grade 1 diastolic dysfunction. Normal RV size and systolic function. Normal biatrial size. Bubble study negative for interatrial shunt. Mild mitral annular calcification, trivial MR. No hemodynamically significant aortic stenosis. Trivial aortic regurgitation. Trivial TR, RVSP 25 mmHg. Epicardial fat pad, no significant pericardial effusion. Left Ventricular Outflow Tract Name Value Normal LVOT 2D LVOT Diameter 2.1 cm LVOT Doppler LVOT Peak Velocity 109 cm/s LVOT Peak Gradient 5 mmHg LVOT Mean Gradient 2 mmHg LVOT VTI 23 cm LVOT VTI/AV VTI Ratio 0.8 LVOT Stroke Volume 75 ml LVOT CO 5.2 l/min LVOT CI 2.5 l/min/m2 Pulmonic Valve Name Value Normal PV Doppler PV Peak Velocity 102 cm/s PV Peak Gradient 4 mmHg PV Mean Gradient 2 mmHg Mitral Valve Name Value Normal MV Doppler MV Peak Gradient 5 mmHg MV Mean Gradient 2 mmHg MV Area (Cont Eq VTI) 3.0 cm2 MV Diastolic Function MV E Peak Velocity 75 cm/s MV A Peak Velocity 102 cm/s MV E/A 0.7 MV Decel Time (PW) 220 ms MV Annular TDI MV E/e' (Septal) 12.3 MV E/e' (Lateral) 8.7 MV E/e' (Average) 10.5 Tricuspid Valve Name Value Normal TV Regurgitation Doppler TR Peak Velocity 222 cm/s TR Peak Gradient 20 mmHg Estimated PAP/RSVP RA Pressure 10 mmHg <=5 PA Systolic Pressure 30 mmHg <36 RV Systolic Pressure 30 mmHg <36 TV Annular TDI TV Lateral Tayla s' Velocity 11.5 cm/s >=9.5 Aortic Valve Name Value Normal AV Doppler AV Peak Velocity 147 cm/s AV Peak Gradient 9 mmHg AV Mean Gradient 5 mmHg AV VTI 30 cm AV Area (Cont Eq VTI) 2.5 cm2 >=3.0 AV Area (Cont Eq Truman) 2.5 cm2 AV DI (Truman) 0.74 AV Regurgitation 2D LVOT Area 3.3 cm2 Ventricles Name Value Normal LV Dimensions 2D/MM IVS Diastolic Thickness (2D) 1.3 cm 0.6-1.0 LVID Diastole (2D) 4.7 cm 3.8-5.2 LVIW Diastolic Thickness (2D) 1.2 cm 0.6-0.9 LVID Systole (2D) 3.3 cm 2.2-3.5 LVOT Diameter 2.1 cm LV Mass (2D Cubed) 216.11 g 67.00-162.00 LV Mass Index (2D Cubed) 103 g/m2 43-95 Relative Wall Thickness (2D) 0.51 <=0.42 LV Fractional Shortening/Ejection Fraction 2D/MM LV Fractional Shortening (2D) 30 % 27-45 LV EF (2D Teichholz) 57 % LV Diastolic Volume (4C MOD) 90 ml LV EF (4C MOD) 61 % LV Diastolic Volume (2C MOD) 85 ml LV EF (2C MOD) 62 % LV Diastolic Volume (BP MOD) 88 ml 46-106 LV Diastolic Volume Index (BP MOD) 42 ml/m2 29-61 LV Systolic Volume (BP MOD) 37 ml 14-42 LV Systolic Volume Index (BP MOD) 18 ml/m2 8-24 LV EF (BP MOD) 58 % 54-74 LV Diastolic Length (4C) 7.7 cm LV Systolic Length (4C) 6.8 cm LV Stroke Volume (4C MOD) 55 ml Atria Name Value Normal LA Dimensions LA Volume (4C A-L) 39 ml LA Volume (BP A-L) 48 ml RA Dimensions RA Systolic Major [place] Length (4C) 4.8 cm 2.2-2.8 RA Area (4C) 15.3 cm2 <=18.0 Report Signatures
[2025-05-30] MEDS: SODIUM CHLORIDE 0.9% IV 1,000 ML 125 ML IV CONT (00:51)
[2025-05-30 05:31] LABS: Hematocrit 36.9 % (37.0-47.0); Hemoglobin 11.2 g/dL (12.0-15.0); Immature Granulocyte Percent A 2.0 % (0-0.5); Lymphocytes Absolute Auto 0.95 K/mm3 (0.9-3.2); Mean Corpuscular HGB Conc 30.4 g/dl (32-36); Mean Corpuscular Hemoglobin 28.5 pg (26-34); Mean Corpuscular Volume 93.9 fl (80-100); Nucleated Red Blood Cells Absolute Auto 0.000 K/mm3 (0.0-0.012); Nucleated Red Blood Cells Perc 0.0 % (0.0-0.2); Platelet Count Result 196 k/mm3 (150-375); Red Blood Count 3.93 M/mm3 (4.2-5.4); White Blood Count 4.5 K/mm3 (4.5-10.0)
[2025-05-30 05:39] LABS: Anion Gap 6 mmol/L (4-12); Blood Urea Nitrogen 12 mg/dL (7-17); Calcium 7.9 mg/dL (8.4-10.2); Carbon Dioxide 24 mmol/L (22-30); Chloride 108 mmol/L (98-107); Estimated CRCL calculation 96 ml/min; Estimated Glomerular Filt Rate > 60; Glucose 106 mg/dL (65-110); Potassium 3.6 mmol/L (3.4-5.0); Sodium 138 mmol/L (137-145)
--- NOTE | 2025-05-30 07:46 | P.PNIM_ITS ---
Progress Note: A&P Assessment and Plan (1) Syncope: Code(s): R55 - Syncope and collapse Status: Acute Assessment and Plan: media monitor sinus rhythm Orthostatic vital signs Echo with bubble IVF hydration Hold antihypertensive 05/30: Denies any additional episodes. -Pending echo reading, hopeful discharge after if WDL (2) Acute hypokalemia: Code(s): E87.6 - Hypokalemia Status: Acute Assessment and Plan: Repleted emergency room BMP in a.m. 05/30: K 3.6 today, appears to potentially be her baseline (from 12/2024) (3) Hypocalcemia: Code(s): E83.51 - Hypocalcemia Status: Acute Assessment and Plan: Oscal daily (4) Prediabetes: Code(s): R73.03 - Prediabetes Status: Acute Assessment and Plan: A1c 6.2 (5) Hyperlipemia: Code(s): E78.5 - Hyperlipidemia, unspecified Status: Acute Assessment and Plan: Continue fenofibrate (6) Vertigo: Code(s): R42 - Dizziness and giddiness Status: Acute Assessment and Plan: Meclizine 05/30: Not currently dizzy but reports intermittently is when turns head Pt reports that she has never had meclizine before but she was given a dose in the ED and believes that it helped. She has been struggling with vertigo for the last x3 king months. She reports being to outpatient vestibular therapy and [place] [facility] it has helped but she needs a refresher on the home exercises for this. She would also like to go home with an RX for meclizine. (7) Rheumatoid arthritis: Code(s): M06.9 - Rheumatoid arthritis, unspecified Status: Acute Assessment and Plan: Continue home medications Plan Pending ECHO results and if negative, discharge with PCP / cards f/u Time Spent With Patient Time: 35 Subjective Date/time seen: 05/30/25 0930 Interval history: Pt sitting down in bed upon my arrival, daughter at the bedside. Pt reports that she was at a restaurant yesterday when she stood up from a bar stool and was walking to the bathroom with friends when she became light headed, diaphoretic, and fell / lowered to the floor by friends. Pt denies hitting her head or any trauma. She does report +LOC. She reports that this is the first time this has happened, denies SOB and CP. Review of Systems Review of Systems: 12 systems were reviewed and are negativ e except for as per HPI. Exam Narrative: General: well appearing, appears stated age. HEENT: normocephalic, atraumatic. Mucous membranes moist. EOMI, PERRLA, bilateral sclera anicteric, no conjunctival injection. Neck supple without JVD, lymphadenopathy, or bruit. Respiratory: clear to ascultation bilaterally. No rales/rhonic/wheezes. Cardiovascular: Regular rate and rhythm, normal S1-S2 upon ascultation. No murmurs, rubs, or clicks. PMI is nondisplaced, capillary refill less than 3 second. TELE 90 bpm. Abdomen: Soft, round, no pulsatile masses, nondistended and nontender. No rebound, no guarding. No CVA tenderness, no hepatosplenomegaly. Bowel sounds present to all four quadrants. No high pitch or tinkling sounds, resonant to percussion. Extremities: No cyanosis, clubbing, or edema present. Pulses are palpable 2/2. Active ROM to all four extremities. Neuro: Alert and orientated x 4. PERRLA. Cranial nerves 2-12 intact without focal deficit. Skin: Warm, dry, and intact, without rash, erythema, or lesion. Psych: pleasant, cooperative, normal speech, normal affect, no hallucinations, no dysarthia Objective Data Vital Signs Vital Signs: Vital Signs - 24 hr 05/29/25 13:12 05/29/25 16:15 05/29/25 16:55 Temperature 97.6 F Pulse Rate 82 83 Respiratory Rate 15 16 Blood Pressure 108/60 134/70 Pulse Oximetry 97 Oxygen Delivery Room Air 05/29/25 20:00 05/29/25 20:00 05/29/25 20:00 Temperature 97.8 F Pulse Rate 87 86 Respiratory Rate 18 Blood Pressure 139/72 Pulse Oximetry 97 Oxygen Delivery Room Air 05/29/25 20:38 05/29/25 20:39 05/29/25 22:00 Temperature 97.3 F L 97.5 F L 97.8 F Pulse Rate 91 93 87 Respiratory Rate 18 18 18 Blood Pressure 147/73 H 162/74 H 139/72 Pulse Oximetry 96 95 97 Oxygen Delivery 05/30/25 00:00 05/30/25 04:00 05/30/25 06:00 Temperature 98.3 F Pulse Rate 82 76 78 Respiratory Rate 18 Blood Pressure 137/67 Pulse Oximetry 98 Oxygen Delivery Intake/Output Intake/Output: Intake & Output 05/27/25 05/28/25 05/29/25 05/30/25 23:59 23:59 23:59 23:59 Intake Total 360 933.3 Balance 360 933.3 Meds/Results Medications: Active Medications Generic Name Dose Route Start Last Admin Trade Name Freq PRN Reason Stop Dose Admin Acetaminophen 650 mg 05/29/25 16:16 Acetaminophen 325 Mg Tablet PO Q4H PRN Mild Pain (1-3) or Fever Albuterol 1 puff 05/29/25 17:40 Albuterol Sulfate (*Sp) Aerosol 1 Puff INHALATION Q4-6H PRN asthma Amitriptyline HCl 50 mg 05/29/25 21:00 05/29/25 20:14 Amitriptyline Hcl 25 Mg Tablet PO 50 mg QHS BRENDA Administration Calcium Carbonate 500 mg 05/30/25 08:00 Calcium/Vitamin D 500 Mg/5 Mcg (200 I.U.) Tablet PO DAILY@0800 [facility] Celecoxib 200 mg 05/30/25 09:00 Celecoxib 200 Mg Capsule PO DAILY BRENDA Docusate Sodium 100 mg 05/29/25 16:16 Docusate Sodium 100 Mg Capsule PO BID PRN Constipation Docusate Sodium 100 mg 05/29/25 17:13 Docusate Sodium 100 Mg Capsule PO DAILY PRN Constipation Enoxaparin Sodium 40 mg 05/30/25 09:00 Enoxaparin 40 Mg/0.4 Ml Syringe SUB-Q DAILY [facility] Fenofibrate 145 mg 05/30/25 09:00 Fenofibrate 145 Mg Tablet PO QAM [facility] Gabapentin 300 mg 05/30/25 09:00 Gabapentin 300 Mg Capsule PO BID [facility] Sodium Chloride 1,000 mls @ 125 mls/hr 05/29/25 15:20 05/30/25 00:51 Normal Saline Iv IV CONT 125 mls/hr .Q8H BRENDA Administration Meclizine HCl 6.25 mg 05/30/25 09:00 Meclizine Hcl 6.25 Mg Tablet PO TID BRENDA Melatonin 5 mg 05/29/25 21:40 05/29/25 21:57 Melatonin 5 Mg Tablet PO 5 mg HS BRENDA Administration Mirabegron 25 mg 05/30/25 09:00 Mirabegron 25 Mg Er Tablet PO DAILY [facility] Montelukast Sodium 10 mg 05/30/25 09:00 Montelukast Sodium 10 Mg Tablet PO DAILY [facility] Pantoprazole Sodium 40 mg 05/30/25 09:00 Pantoprazole 40 Mg Tablet PO QAM [facility] Perflutren Lipid Microsphere 0 ml 05/29/25 16:16 Perflutren Lipid Microspheres 1.5 Ml Vial Diluted To 10 Ml Total Volume IV PUSH 06/01/25 16:17 ONCE PRN adequate visualization Protocol Fluticasone/Salmeterol 2 puff 05/29/25 20:00 Fluticasone/Salmeterol 45-21 Mcg Inhaler 1 Puff INHALATION Q12HRT [facility] Radiology Results: ITS Impressions Chest X-Ray 05/29/25 13:53 IMPRESSION: 1. No acute cardiopulmonary findings. Labs Labs: Laboratory Results - last 24 hr 05/29/25 05/29/25 05/30/25 13:32 20:19 05:05 WBC 5.7 4.5 RBC 4.39 3.93 L Hgb 12.4 11.2 L Hct 40.5 36.9 L MCV 92.3 93.9 MCH 28.2 28.5 MCHC 30.6 L 30.4 L RDW 13.2 13.1 Plt Count 238 196 MPV 9.7 9.5 Immature Gran % (Auto) 1.8 H 2.0 H Neut % (Auto) 71.2 62.8 Lymph % (Auto) 16.0 L 20.9 [place] % (Auto) 7.6 9.9 H Eos % (Auto) 2.3 3.3 Baso % (Auto) 1.1 1.1 Lymph # (Auto) 0.91 0.95 [place] # (Auto) 0.4 0.5 Eos # (Auto) 0.1 0.2 Baso # (Auto) 0.1 0.1 Abs Immat Gran (auto) 0.10 H 0.09 H Absolute Neuts (auto) 4.1 2.9 Absolute Nucleated RBC 0.000 0.000 Nucleated RBC % 0.0 0.0 Sodium 138 138 Potassium 2.9 L 3.6 Chloride 105 108 H Carbon Dioxide 24 24 Anion Gap 9 6 BUN 17 12 D Creatinine 0.62 L 0.52 L Estim Creat Clear Calc 83 96 Estimated GFR > 60 > 60 Glucose 163 H 106 Calcium 8.2 L 7.9 L Total Bilirubin 0.3 AST 33 ALT 29 Alkaline Phosphatase 58 Total Protein 5.9 L Albumin 3.5 C. difficile (PCR) Negative Quality VTE Prophylaxis VTE prophylaxis: mechanical ordered and pharmacologic ordered
[2025-05-30] MEDS: FLUTICASONE/SALMETEROL 45-21 MCG INHALER 1 PUFF 2 PUFF INHALATION (08:22)
[2025-05-30] MEDS: MONTELUKAST SODIUM 10 MG TABLET PO (08:58)
[2025-05-30] MEDS: MECLIZINE HCL 6.25 MG TABLET PO ×3 (08:58→16:44)
[2025-05-30] MEDS: CELECOXIB 200 MG CAPSULE PO (08:58)
[2025-05-30] MEDS: PANTOPRAZOLE 40 MG TABLET PO (08:58)
[2025-05-30] MEDS: FENOFIBRATE 145 MG TABLET PO (08:58)
[2025-05-30] MEDS: GABAPENTIN 300 MG CAPSULE PO ×2 (08:58→17:29)
[2025-05-30] MEDS: MIRABEGRON 25 MG ER TABLET PO (08:59)
[2025-05-30] MEDS: CALCIUM/VITAMIN D 500 MG/5 MCG (200 I.U.) TABLET PO (08:59)
[2025-05-30] MEDS: ACETAMINOPHEN 325 MG TABLET 650 MG PO ×2 (13:01→17:00)
[2025-05-30] MEDS: AMITRIPTYLINE HCL 25 MG TABLET 50 MG PO (20:34)
[2025-05-30] MEDS: MELATONIN 5 MG TABLET PO (20:34)
[2025-05-31] VITALS: PULSE 100
[2025-05-31 04:00] VITALS: PULSE 75
[2025-05-31 05:05] VITALS: BP 124/66; PULSE 75; RESP 14; TEMP 36.5; O2SAT 99
[2025-05-31 05:29] LABS: Hematocrit 35.1 % (37.0-47.0); Hemoglobin 10.8 g/dL (12.0-15.0); Immature Granulocyte Percent A 1.3 % (0-0.5); Lymphocytes Absolute Auto 0.85 K/mm3 (0.9-3.2); Mean Corpuscular HGB Conc 30.8 g/dl (32-36); Mean Corpuscular Hemoglobin 28.4 pg (26-34); Mean Corpuscular Volume 92.4 fl (80-100); Nucleated Red Blood Cells Absolute Auto 0.000 K/mm3 (0.0-0.012); Nucleated Red Blood Cells Perc 0.0 % (0.0-0.2); Platelet Count Result 182 k/mm3 (150-375); Red Blood Count 3.80 M/mm3 (4.2-5.4); White Blood Count 4.5 K/mm3 (4.5-10.0)
[2025-05-31 05:52] LABS: Alanine Aminotransferase 22 U/L (6-35); Albumin Level 2.9 g/dL (3.5-5.1); Alkaline Phosphatase 48 U/L (38-126); Anion Gap 4 mmol/L (4-12); Aspartate Amino Transferase 23 U/L (14-36); Bilirubin,Total 0.2 mg/dL (0.2-1.3); Blood Urea Nitrogen 10 mg/dL (7-17); Calcium 8.1 mg/dL (8.4-10.2); Carbon Dioxide 29 mmol/L (22-30); Chloride 105 mmol/L (98-107); Estimated CRCL calculation 92 ml/min; Estimated Glomerular Filt Rate > 60; Glucose 110 mg/dL (65-110); Potassium 3.7 mmol/L (3.4-5.0); Sodium 138 mmol/L (137-145); Total Protein 5.2 g/dL (6.3-8.2)
[2025-05-31] MEDS: FLUTICASONE/SALMETEROL 45-21 MCG INHALER 1 PUFF 2 PUFF INHALATION (07:45)
[2025-05-31 08:00] VITALS: PULSE 82
[2025-05-31] MEDS: CALCIUM/VITAMIN D 500 MG/5 MCG (200 I.U.) TABLET PO (09:17)
[2025-05-31] MEDS: PANTOPRAZOLE 40 MG TABLET PO (09:17)
[2025-05-31] MEDS: MIRABEGRON 25 MG ER TABLET PO (09:17)
[2025-05-31] MEDS: FENOFIBRATE 145 MG TABLET PO (09:17)
[2025-05-31] MEDS: MONTELUKAST SODIUM 10 MG TABLET PO (09:17)
[2025-05-31] MEDS: CELECOXIB 200 MG CAPSULE PO (09:18)
[2025-05-31] MEDS: GABAPENTIN 300 MG CAPSULE PO (09:18)
[2025-05-31] MEDS: MECLIZINE HCL 6.25 MG TABLET PO ×2 (09:24→12:10)
[2025-05-31] MEDS: ENOXAPARIN 40 MG/0.4 ML SYRINGE SUB-Q (09:24)
--- NOTE | 2025-05-31 10:41 | P.DS_ITS ---
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 -Pending echo results 05/31: No further episodes, wants to go home. Family is staying with her. (2) Acute hypokalemia: Code(s): E87.6 - Hypokalemia Status: Acute Assessment and Plan: Repleted emergency room BMP in a.m. 05/30: K 3.6 today, appears to potentially be her baseline (from 12/2024), resolved (3) Hypocalcemia: Code(s): E83.51 - Hypocalcemia Status: Acute Assessment and Plan: Likely related to low albumin, poor nutrition, f/u with (4) Prediabetes: Code(s): R73.03 - Prediabetes Status: Acute Assessment and Plan: A1c 6.2 (5) Hyperlipemia: Code(s): E78.5 - Hyperlipidemia, unspecified Status: Acute Assessment and Plan: Continue fenofibrate (6) Vertigo: Code(s): R42 - Dizziness and giddiness Status: Acute Assessment and Plan: Meclizine 05/30: Not currently dizzy but reports intermittently is when turns head 05/31: Encouraged Tiera exercises (demonstrated) and f/u with PCP for possible PT referral (7) Rheumatoid arthritis: Code(s): M06.9 - Rheumatoid arthritis, unspecified Status: Acute Assessment and Plan: Continue home medications (8) Prolonged QT interval: Code(s): R94.31 - Abnormal electrocardiogram [ECG] [EKG] Status: Acute Assessment and Plan: Chronic and no sign of ventricular arrhythmias on telemetry (9) Anemia: Code(s): D64.9 - Anemia, unspecified Status: Acute Assessment and Plan: Chronic and relatively stable (10) Protein calorie malnutrition: Code(s): E46 - Unspecified protein-calorie malnutrition Status: Acute Assessment and Plan: Encouraged healthy diet DS: Summary Hospital Course Hospital Course: 69-year-old female who lost her 2 weeks prior to admission was eating with friends she got up to go to the bathroom and did not feel well. After having at diarrhea episode she walked back to the table and on the way there briefly lost consciousness. She awakened quickly after hitting the floor. There was no injury. She did not have chest pain or palpitations. She was not nauseated. She has been having diarrhea and lack of sleep since her . She has felt very stressed. She has never had a similar episode. She does have a history of a prolonged QT interval. During her hospital stay her telemetry and orthostatic blood pressures were unremarkable. Potassium was low at 2.9 and corrected with supplementation. Albumin was low at 3.4. EKG showed intraventricular conduction delay and prolonged QT interval. She tolerated her diet. Was up and about her room independently. She to give a history of prior evaluations for iron deficiency anemia including upper and lower endoscopies and multiple lab tests and iron infusions in the past. Her hemoglobin has been stable recently however. She also has a history of chronic positional vertigo for which she tried Tiera exercises in the past. She states meclizine helps a little bit. It is triggered mainly by position changes. She has no associated symptoms with that. Time Spent with Patient Time attestation: Total time spent providing and/or coordinating discharge services: Exam Narrative: HEENT: PERRL, sclerae nonicteric, pharyngeal mucosa pink and intact NECK: No JVD, adenopathy, or thyromegaly CHEST: Clear to auscultation. Normal effort HEART: NL S1/S2, regular, no murmur ABDOMEN: BS+, soft, nontender, no mass, no bruits EXTREMITIES: No cyanosis, edema, or clubbing NEUROLOGIC: CN intact and symmetric to inspection MUSCULOSKELETAL: Tone and strength symmetric PSYCH: Alert. Oriented to person, place, and time. DS: Data Data Completed and Pending Labs on day of discharge: Labs from last 24 hours 05/31/25 05:22 WBC 4.5 RBC 3.80 L Hgb 10.8 L Hct 35.1 L MCV 92.4 MCH 28.4 MCHC 30.8 L RDW 13.0 Plt Count 182 MPV 9.3 Immature Gran % (Auto) 1.3 H Neut % (Auto) 66.5 Lymph % (Auto) 19.0 [place] % (Auto) 9.4 H Eos % (Auto) 2.9 Baso % (Auto) 0.9 Lymph # (Auto) 0.85 L [place] # (Auto) 0.4 Eos # (Auto) 0.1 Baso # (Auto) 0.0 Abs Immat Gran (auto) 0.06 H Absolute Neuts (auto) 3.0 Absolute Nucleated RBC 0.000 Nucleated RBC % 0.0 Sodium 138 Potassium 3.7 Chloride 105 Carbon Dioxide 29 Anion Gap 4 BUN 10 Creatinine 0.55 L Estim Creat Clear Calc 92 Estimated GFR > 60 Glucose 110 Calcium 8.1 L Total Bilirubin 0.2 AST 23 ALT 22 Alkaline Phosphatase 48 Total Protein 5.2 L Albumin 2.9 L Discharge Plan Discharge Consulting providers: Berta Hurley Discharging Clinician: Delroy Roe Patient Disposition: Home Activity: no driving Diet: as tolerated Patient Instructions: Vertigo (DC) Patient Language: Angolan Stand Alone Forms: General Discharge Information Follow-up/Referrals: Ani Vitale DO [Primary Care Provider, [facility]] Referral Note: Syncope Discharge Medications: New acetaminophen 325 mg Tablet 650 mg PO Q4H PRN (Reason: Mild Pain (1-3) Or Fever) Qty: 60 0RF Continued fexofenadine [Emerita Allergy] 180 mg tablet 180 mg PO DAILY diclofenac sodium 1 % gel 2 g topical QID Rx Instructions: apply to single elbow, wrist or hand; for hand includes palm/fingers/back of hand fluticasone propionate [Flonase Allergy Relief] 50 mcg/actuation spray,suspension 1 spray intranasal DAILY Rx Instructions: administer into each nostril glucosamine-chondroitin 900 mg tablet 900 mg PO DAILY@0800 Adult 50 Plus Probiotic 4 billion cell capsule 4,000 mmu cells PO DAILY Rx Instructions: administer with a meal docusate sodium [Colace] 100 mg capsule 100 mg PO DAILY PRN (Reason: constipation) cholecalciferol (vitamin D3) 25 mcg (1,000 unit) capsule 50 mcg PO DAILY mecobalamin (vitamin B12) 5,000 mcg tablet,chewable 5,000 mcg PO DAILY albuterol sulfate 90 mcg/actuation aero powdr breath act w/sensor 1 inh inhalation Q4-6H PRN (Reason: asthma) oasis drop 1 drp .Route BID Rx Instructions: 1 drp twice a day; one drop in each eye 2x a day budesonide-formoterol [Symbicort] 80-4.5 mcg/actuation HFA aerosol inhaler 1 inh inhalation TID Qty: 10.2 5RF celecoxib [Celebrex] 200 mg capsule 200 mg PO DAILY Qty: 90 1RF esomeprazole magnesium [Nexium] 40 mg capsule,delayed release(DR/EC) 40 mg PO DAILY Qty: 90 1RF fenofibrate 160 mg tablet 160 mg PO DAILY Qty: 90 1RF gabapentin 300 mg capsule 300 mg PO BID Qty: 180 1RF amitriptyline 50 mg tablet 50 mg PO QHS mirabegron [Myrbetriq] 25 mg tablet extended release 24 hr 25 mg PO DAILY Qty: 90 1RF montelukast 10 mg tablet 10 mg PO DAILY Qty: 90 1RF Date of admission: 05/29/25 15:20 Primary Care Provider: Ani Vitale Admitting Provider: Darlyn Vela Attending physician on admission: Darlyn Vela Condition: Improved
[2025-05-31 10:47] VITALS: BP 145/77; PULSE 89; TEMP 36.9; O2SAT 95
[2025-05-31 10:50] VITALS: BP 150/90; PULSE 99; O2SAT 96
== END 2025-05-31 12:34 | disposition home or self-care (01) ==
LOC: ANHED 15:16 → ANH2MED 05-30 07:20
PROVIDERS: Nurse Practitioner Gerontology; Admitting Provider Internal Medicine; Emergency Provider Emergency Medicine; PCP Family Medicine; Visit Provider Internal Medicine
DX: R55 Syncope and collapse (principal); R42 Dizziness and giddiness; E87.6 Hypokalemia; E83.51 Hypocalcemia; R73.03 Prediabetes; R94.31 Abnormal electrocardiogram [ECG] [EKG]; D64.9 Anemia, unspecified; E46 Unspecified protein-calorie malnutrition; E78.5 Hyperlipidemia, unspecified; K21.9 Gastro-esophageal reflux disease without esophagitis; K58.9 Irritable bowel syndrome, unspecified; M06.9 Rheumatoid arthritis, unspecified
CPT/HCPCS: 36415; 71046; 80048; 80053; 85025; 87493; 93005; 93306; 94640; 96361; 96372; 96374; 96375; 99285; A9270; G0378; J1650; J3480; J7030

== ENCOUNTER 2025-07-03 08:41 | Outpatient (CLI) | payer MEDICARE, SELFPAY ==
--- NOTE | ~2025-07-03 | MM_ITS ---
EXAMINATION: MM screening [facility] BI w fabián INDICATION: Asymptomatic, referred for screening mammogram COMPARISON: None available TECHNIQUE: Digital Breast Tomosynthesis CC, MLO views of Both breasts were obtained with computer-aided detection to assist in interpretation of the study. FINDINGS: There are scattered areas of fibroglandular density. There is a mass in the inferior central subareolar location right breast. There is a focal asymmetry seen in the superior lateral, at anterior depth within the left breast. Elsewhere, there are no mammographic features of malignancy. IMPRESSION: 1. Right breast Mass. 2. Left breast focal asymmetry. RECOMMENDATION: Prior mammograms should BE obtained for comparison. However if priors are not available then Bilateral breast Diagnostic mammogram with true lateral, appropriate spot compression views and an ultrasound if needed. BI-RADS Category 0: Incomplete: Needs additional imaging evaluation. Reviewed, dictated and finalized at location B. [employer]PER[employer]OR IMPRESSION: 1. Right breast Mass. 2. Left breast focal asymmetry. RECOMMENDATION: Prior mammograms should BE obtained for comparison. However if priors are not a vailable then Bilateral breast Diagnostic mammogram with true lateral, appropri ate spot compression views and an ultrasound if needed. BI-RADS Category 0: Incomplete: Needs additional imaging evaluation.
== END 2025-07-03 08:42 | disposition home or self-care (01) ==
LOC: ANHFOHIMG 08:43
PROVIDERS: PCP Family Medicine; Visit Provider Family Medicine
DX: Z12.31 Encounter for screening mammogram for malignant neoplasm of breast (principal); R92.8 Other abnormal and inconclusive findings on diagnostic imaging of breast; N63.10 Unspecified lump in the right breast, unspecified quadrant
CPT/HCPCS: 77063; 77067

== ENCOUNTER 2025-07-21 10:12 | Outpatient (CLI) | payer MEDICARE, SELFPAY ==
[2025-07-21 10:38] LABS: Hematocrit 43.7 % (37.0-47.0); Hemoglobin 13.8 g/dL (12.0-15.0); Mean Corpuscular HGB Conc 31.6 g/dl (32-36); Mean Corpuscular Hemoglobin 28.7 pg (26-34); Mean Corpuscular Volume 90.9 fl (80-100); Platelet Count Result 249 k/mm3 (150-375); Red Blood Count 4.81 M/mm3 (4.2-5.4); White Blood Count 5.5 K/mm3 (4.5-10.0)
[2025-07-21 10:50] LABS: Hemoglobin A1C 6.3 % (<5.7)
[2025-07-21 11:06] LABS: Iron 63 ug/dL (37-170)
[2025-07-21 11:08] LABS: Alanine Aminotransferase 35 U/L (6-35); Albumin Level 4.0 g/dL (3.5-5.1); Alkaline Phosphatase 54 U/L (38-126); Anion Gap 2 mmol/L (4-12); Aspartate Amino Transferase 41 U/L (14-36); Bilirubin,Total 0.5 mg/dL (0.2-1.3); Blood Urea Nitrogen 17 mg/dL (7-17); Calcium 9.2 mg/dL (8.4-10.2); Carbon Dioxide 31 mmol/L (22-30); Chloride 104 mmol/L (98-107); Cholesterol 184 mg/dL (0-200); Estimated Glomerular Filt Rate > 60; Glucose 115 mg/dL (65-110); HDL Direct 50 mg/dL; Potassium 4.0 mmol/L (3.4-5.0); Sodium 137 mmol/L (137-145); Total Protein 6.8 g/dL (6.3-8.2); Triglycerides 136 mg/dL (<150)
[2025-07-21 11:18] LABS: Percent Iron Saturation 22 % (20-50)
[2025-07-21 12:20] LABS: Vitamin B12 > 1000.0 pg/mL (239-931)
== END 2025-07-21 10:13 | disposition home or self-care (01) ==
PROVIDERS: PCP Family Medicine; Referring Provider Internal Medicine Hematology & Oncology; Visit Provider Family Medicine
DX: E78.5 Hyperlipidemia, unspecified (principal); D64.9 Anemia, unspecified; R73.03 Prediabetes; R73.09 Other abnormal glucose
CPT/HCPCS: 36415; 80053; 80061; 82607; 82728; 82746; 83036; 83540; 83550; 85027